=== PATIENT | male | born 1975 | race Caucasian/White ===

== ENCOUNTER → 2024-07-09 16:12 | Outpatient (REF) | payer OTHER, SELFPAY ==
--- NOTE | 2024-07-09 17:15 | CA_ITS ---
Transthoracic Echocardiogram Patient (Last, First, Middle): Jack Lutz, Gender: Male Date of : 1975 Age: 48 Procedure Date: 07/09/2024 Procedure Type: Transthoracic Echocardiogram Location: OP Height: 187.96 cm Weight: 102.06 kg BSA: 2.28 m2 Heart Rate: bpm BP: 128 / 80 mmHg Senior Catering Sales Manager: Referring MD: Leon Narayan MD Assistant Laboratory Director: Leon Narayna MD Symptoms: I48.91 Unspecified Atrial Fibrillation Study Quality: Fair ECG Rhythm: Sinus Conclusions: - Normal study Findings Left Ventricle Normal left ventricular size, thickness, and systolic function. The visually estimated ejection fraction is between 60-65%. Diastolic function is normal for age. Right Ventricle Normal right ventricular cavity size and systolic function. Atria Both atria are normal in size. There is no evidence of interatrial shunt. Aortic Valve Normal aortic valve structure and function. There is no aortic valve stenosis. There is no aortic valve regurgitation. Mitral Valve Normal mitral valve structure and function. There is no mitral valve regurgitation. There is no mitral valve stenosis. Tricuspid Valve Normal tricuspid valve structure. There is trace tricuspid valve regurgitation. The right ventricular systolic pressure is normal. The right ventricular systolic pressure is 24 mmHg. Normal right atrial pressure. There is no evidence of pulmonary hypertension. Great Vessels All visible segments of the aorta are normal in size. The pulmonary artery was not well visualized. Venous The inferior vena cava is normal in size and collapses greater than 50% with inspiration. Pericardium/Pleural There is no evidence of pericardial effusion. Prior Study Comparison No prior study available for comparison. Measurements 2D Linear Measurements IVSd: 1.16 0.6-0.9/0.6-1.0 cm LVIDd: 5.41 3.9-5.3/4.2-5.9 cm LVIDd Index: 2.37 2.4-3.2/2.2-3.1 cm/m2 LVIDs: 3.02 2.0-3.6 cm LVPWd: 1.16 0.7-1.1 cm Ao Root: 3.30 2.1-3.5 cm LA Diam: 4.40 2.7-3.8/3.0-4.0 cm LAIDs Index: 1.93 1.5-2.3 cm/m2 LV Mass: 315.69 67-162/88-224 g LV Mass Index: 138.46 43-95/49-115 g/m2 LVOT Diam: 2.20 3.0+(-)1.3 cm 2D Systolic Function EF 4C: 68.80 >55% EF 2C: 64.70 >55% EF BiP: 65.20 >55% Mitral Valve MV Pk E: 0.61 MV PK A: 0.60 MV Decel Time: 168.00 E/A: 1.00 E'Lateral: 17.30 E'Medial: 7.51 E/E' Med: 8.20 E/E' Lat: 3.50 PHT: 49.00 MVA PHT: 4.49 Decel Erie: 3.65 LVOT LVOT Pk Xavier: 1.16 LVOT Mn Xavier: 0.65 LVOT VTI: 0.24 LVOT Pk Grad: 5.00 LVOT Mn Grad: 2.00 LVOT Diam: 2.20 LVOT Area: 3.80 Diastolic Function MV Pk E: 0.61 MV Pk A: 0.60 E/A: 1.00 E'Medial: 7.51 E/E' Med: 8.20 E' Laterial: 17.30 E/E' Lat: 3.50 Right Ventricle TAPSE (mm): 34.00 TVS' Xavier: 15.00 Tricuspid Valve TR Pk Xavier: 2.28 TR Pk Grad: 21.00 RA Press: 3.00 RVSP: 24.00 Great Vessels Aorta Ao Root-2D: 3.30 2.0-3.7 cm Ao Asc: 3.30 2.1-3.4 cm Pulmonary Valve PV Pk Xavier: 1.30 Peak PV Grad: 7.00 Updated in Other Vendor System with Status of Final Leon Narayan MD electronically signed on 07/10/2024 11:10:06 AM with status of Final
--- OUTSIDE RECORDS SUMMARY | 2024-07-09 20:05 | XMS_ITS | Clinical Summary ---
Author Organization [facility] Address [address] [id number] Care Team Providers Care Senior Abap Developer Name Role Phone Cameron Smith Unavailable Cameron Smith Primary Care Provider [phone] Allergies Active Allergy Reactions Criticality Noted Date Comments Pavel Inhibitors Rash Low 07/07/2024 Medications amLODIPine (NORVASC) 10 mg tablet Take 10 mg by mouth in the morning. Active losartan (COZAAR) 50 mg tablet Take 50 mg by mouth in the morning. Active propranoloL (INDERAL) 20 mg tablet Take 20 mg by mouth in the morning and 20 mg at noon and 20 mg before bedtime. Active apixaban (ELIQUIS) 5 mg Take 1 tablet (5 mg total) by mouth in the morning and 1 tablet (5 mg total) before bedtime. 60 tablet 07/07/2024 Active Active Problems No known active problems Encounters Date Type Department Care Team Description 07/07/2024 12:48 AM EST - 07/07/2024 4:58 AM EST Emergency [facility] Department of Emergency Services [address] [place] [address] Kenji Trivedi MD Atrial fibrillation, unspecified type (HCC) (Primary Dx) Discharge Disposition: Home or Self Care from Last 3 Months Social History Tobacco Use Types Packs/Day Years Used Date Smoking Tobacco: Never Smokeless Tobacco: Never Tobacco Cessation:Counseling Given: Not Answered Sex and Gender Information Value Date Recorded Sex Assigned at Not on file Legal Sex Male 12:42 AM EST Gender Identity Not on file Sexual Orientation Not on file COVID-19 Exposure Response Date Recorded In the last 10 days, have yo u been in contact with someone who was confirmed or suspected to have Coronavirus/COVID-19? No / Unsure 07/07/2024 12:43 AM EST Last Filed Vital Signs Vital Sign Reading Time Taken Comments Blood Pressure 129/80 07/07/2024 3:23 AM EST Pulse 73 07/07/2024 3:30 AM EST Temperature 35.9 ??C (96.6 ??F) 07/07/2024 12:[address] Respiratory Rate 24 07/07/2024 3:30 AM EST Oxygen Saturation 97% 07/07/2024 3:30 AM EST Inhaled Oxygen Concentration - - Weight 102 kg (225 lb) 07/07/2024 12:44 AM EST Height 188 cm (6' 2 ) 07/07/2024 12:44 AM EST Body Mass Index 28.89 07/07/2024 12:44 AM EST Plan of Treatment Health Maintenance Due Date Last Done Comments CT Colonography 1975 FIT-DNA (Cologuard) 1975 FIT 1975 FOBT 1975 Flex Sigmoidoscopy - 5y 1975 HIV Screening 1975 Hepatitis C Screening 1992 Hepatitis B Vaccines (1 of 3 - 19+ 3-dose series) 1993 DTaP,Tdap,and Td Vaccines (1 - Tdap) 09/12/2022 09/11/2022 COVID-19 Vaccine ( - season) 2024 12/31/2020, 05/18/2020, 04/27/2020 Zoster Vaccines (1 of 2) 2024 Colonoscopy 05/22/2033 05/22/2023 Colorectal Cancer Screening 05/22/2033 Influenza Vaccine Completed 03/04/2024, , 03/24/2023, Additional history exists HPV Vaccines Aged Out No longer eligi ble based on patient's age to complete this topic Hepatitis A Vaccines Aged Out No long er eligible based on patient's age to complete this topic MMR Vaccines Aged Out No longer eligi ble based on patient's age to complete this topic Meningococcal Vaccine Aged Out No lavelle clifford eligible based on patient's age to complete this topic Pneumococcal Vaccine: Pediatrics (0 to 5 Years) and At-Risk Patients (6 to 64 Years) Aged Out No longer eligible based on patient's age to complete this topic Procedures Procedure Name Priority Date/Time Associated Diagnosis Comments HIGH SENSITIVITY TROPONIN I STAT 07/07/2024 3:21 AM EST TSH Add-On 07/07/2024 1:18 AM EST COMPLETE BLOOD COUNT WITH AUTO DIFFERENTIAL STAT 07/07/2024 1:18 AM EST HIGH SENSITIVITY TROPONIN I STAT 07/07/2024 1:18 AM EST MAGNESIUM STAT 07/07/2024 1:18 AM EST BASIC METABOLIC PANEL STAT 07/07/2024 1:18 AM EST COMPLETE BLOOD COUNT AND DIFFERENTIAL STAT 07/07/2024 1:18 AM EST ECG 12-LEAD STAT 07/07/2024 12:53 AM EST from Last 3 Months Results * High Sensitivity Troponin I (07/07/2024 3:21 AM EST) Only the most recent of2 resultswithin the time period is included. high sensitivity Troponin I <3 <=35 ng/L 07/07/2024 3:56 AM EST [facility] Comment:Refer to the high se nsitivity TnI algorithm for further workup Blood Venous blood specimen / Unknown Venipuncture / Unknown 07/07/2024 3:21 AM EST 07/07/2024 3:26 AM EST us Kenji Trivedi MD LAB BLOOD ORDERABLES Natali tapia Result [facility] [address] [place] [address], [place] [phone] * (ABNORMAL) Complete Blood Count with Auto Differential (07/07/2024 1:18 AM [facility]) [facility] White Cell Count 8.9 3.8 - 10.6 10*3/uL 07/07/2024 1:26 AM [facility] Red Cell Count 5.39 4.40 - 5.90 10*6/??L 07/07/2024 1:26 AM [facility] Hemoglobin 15.2 13.0 - 18.0 g/dL 07/07/2024 1:26 AM [facility] Hematocrit 45.3 40.0 - 52.0 % 07/07/2024 1:26 AM [facility] MCV 84.0 80.0 - 100.0 fL 07/07/2024 1:26 AM [facility] MCH 28.2 26.0 - 34.0 pg 07/07/2024 1:26 AM [facility] MCHC 33.6 32.0 - 36.0 g/dL 07/07/2024 1:26 AM [facility] RBC Distribution Width 13.2 11.6 - 14.8 % 07/07/2024 1:26 AM [facility] Platelet count 247 150 - 440 10*3/uL 07/07/2024 1:26 AM [facility] Neutrophils 42.7 40.0 - 70.0 % 07/07/2024 1:26 AM [facility] Immature Granulocytes 0.1 0.0 - 0.6 % 07/07/2024 1:26 AM [facility] Lymphocytes 42.1 20.0 - 50.0 % 07/07/2024 1:26 AM [facility] Monocytes 12.0 4.0 - 12.0 % 07/07/2024 1:26 AM [facility] Eosinophils 2.3 0.0 - 6.0 % 07/07/2024 1:26 AM EST [facility] Basophils 0.8 0.0 - 2.0 % 07/07/2024 1:26 AM EST [facility] Absolute Neutrophil Ct. 3.8 1.4 - 6.3 10*3/uL 07/07/2024 1:26 AM EST [facility] Absolute Lymphocyte Ct. 3.7 0.7 - 4.5 10*3/uL 07/07/2024 1:26 AM EST [facility] Absolute Monocyte Ct. 1.1(H) 0.2 - 0.8 10*3/uL 07/07/2024 1:26 AM EST [facility] Absolute Eosinophil Ct. 0.2 0.0 - 0.3 10*3/uL 07/07/2024 1:26 AM EST [facility] Absolute Basophil Ct. 0.1 0.0 - 0.2 10*3/uL 07/07/2024 1:26 AM EST [facility] nRBC 0.0 0.0 - 0.0 % 07/07/2024 1:26 AM EST [facility] Blood Venous blood specimen / Unknown Venipuncture / Unknown 07/07/2024 1:18 AM EST 07/07/2024 1:24 AM EST Kenji Trivedi MD LAB BLOOD ORDERABLES Natali tapia Result [facility] [address] [place] [address], * TSH (07/07/2024 1:18 AM EST) [facility] TSH 2.27 0.35 - 4.94 uIU/mL 07/07/2024 2:27 AM EST [facility] Blood Venous blood specimen / Unknown Venipuncture / Unknown 07/07/2024 1:18 AM EST 07/07/2024 1:23 AM EST us Kenji Trivedi MD LAB BLOOD ORDERABLES NO S TAT Final Result [facility] [address] [place] [address], [place] [phone] * Magnesium (07/07/2024 1:18 AM EST) Magnesium 1.9 1.8 - 3.0 mg/dL 07/07/2024 1:56 AM EST [facility] Blood Venous blood specimen / Unknown Venipuncture / Unknown 07/07/2024 1:18 AM EST 07/07/2024 1:23 AM EST us Kenji Trivedi MD LAB BLOOD ORDERABLES Natali l Result Performing Organization Address City/[facility]/ZIP Co de Phone Number [facility] [address] [place] [address], [place] [phone] * (ABNORMAL) Basic metabolic panel (07/07/2024 1:18 AM EST) Sodium 140 137 - 144 mmol/L 07/07/2024 1:56 AM EST [facility] Potassium 3.9 3.6 - 5.1 mmol/L 07/07/2024 1:56 AM EST [facility] Chloride 106 100 - 111 mmol/L 07/07/2024 1:56 AM EST [facility] CO2 21(L) 23 - 32 mmol/L 07/07/2024 1:56 AM EST [facility] Anion gap 13(H) 3 - 11 mmol/L 07/07/2024 1:56 AM EST [facility] BUN 16 8 - 24 mg/dL 07/07/2024 1:56 AM EST [facility] Creatinine 0.80 0.60 - 1.20 mg/dL 07/07/2024 1:56 AM [facility] Glucose 106 70 - 200 mg/dL 07/07/2024 1:56 AM [facility] Comment: Normal fasting glucose ?75-99 mg/dL Impaired fasting glucose ?100 - 125 mg/dL Fasting glucose ? >125 mg/dL - provisional diagnosis of diabetes mellitus Random glucose ?>= 200 mg/dl is considered diagnostic for diabetes ADA Guidelines: Classification and Diagnosis of Diabetes: Standards of Medical Care in Diabetes - 2020, Diabetes Care 2020; S15-S33. Calcium 9.9 8.4 - 10.2 mg/dL 07/07/2024 1:56 AM [facility] eGFR 108 >60 mL/min/1. 73m*2 07/07/2024 1:56 [facility] Comment: Calculation based on the Chronic Kidney Disease Epidemiology Collaboration (CKD-EPI) equation refit without adjustment for race. ? Chronic Kidney Disease less than 60 ml/min/1.73 m2 ? Kidney Failure less than 15 ml/min/1.73 m2 ? Age (Years) ? Average GFR ? 20 - 29 ? 116 ml/min/1.73 m2 ? 30 - 39 ? 107 ml/min/1.73 m2 ? 40 - 49 ?99 ml/min/1.73 m2 ? 50 - 59 ?93 ml/min/1.73 m2 ? 60 - 69 ?85 ml/min/1.73 m2 ? 70 + ? 75 ml/min/1.73 m2 ? Pursuant to [place] Public Act 06-120(1)(b)(1). ?? The 2020 CKD-EPI calculation used to estimate eGFR has only been validated for patients 18 years or older. Blood Venous blood specimen / Unknown Venipuncture / Unknown 07/07/2024 1:18 AM EST 07/07/2024 1:23 AM EST us Kenji Trivedi MD LAB BLOOD ORDERABLES Natali tapia Result [facility] [address] [place] [address], * ECG 12 lead (07/07/2024 12:53 AM EST) 07/07/2024 12:5 3 AM EST 07/07/2024 3:43 PM EST Narrative [facility] ([facility]) - 07/07/2024 3:43 PM EST Ventricular Rate: 80 BPM QRS Duration: 106 ms Q-T Interval: 372 ms QTC Calculation(Bazett): 429 ms R Antler: -37 degrees T Antler: 18 degrees Diagnosis: Atrial fibrillation Left axis deviation Pulmonary disease pattern Incomplete right bundle branch block Abnormal ECG No previous ECGs available Confirmed by Josias Gómez ([id number]) on 07/07/2024 7:59:12 AM Also confirmed by Josias Gómez ([id number]), society editor Patricia Barton ([id number]) on 07/07/2024 3:43:40 PM Procedure Note Josias Gómez MD - 07/07/2024 Ventricular Rate: 80 BPM QRS Duration: 106 ms Q-T Interval: 372 ms QTC Calculation(Bazett): 429 ms R Antler: -37 degrees T Antler: 18 degrees Diagnosis: Atrial fibrillation Left axis deviation Pulmonary disease pattern Incomplete right bundle branch block Abnormal ECG No previous ECGs available Confirmed by Josias Gómez ([id number]) on 07/07/2024 7:59:12 AM Also confirmed by Josias Gómez ([id number]), society editor Patricia Barton ([id number]) on 07/07/2024 3:43:40 PM us Kenji Trivedi MD ECG ORDERABLES Final Res ult [facility] ([place]) [place] [address], from Last 3 Months Insurance O NON PAR Care Teams Senior Abap Developer Relationship Specialty Start Date End Date Cameron Smith [address] [address] PCP - Insurance Payer PCP 07/07/24 Cameron Smith [address] [place] [address] PCP - General Internal Medicine 07/07/24
--- OUTSIDE RECORDS SUMMARY | 2024-07-09 20:05 | XMS_ITS | Clinical Summary ---
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 4 Active dexAMETHasone (DECADRON) 2 mg tabletIndications: Lumbar back pain with radiculopathy affecting left lower extremity Take 1 tablet (2 mg total) by mouth every 8 (eight) hours for 4 days. 12 each 1 5 Active Active Problems Problem Noted Date Diagnosed Date Lumbar back pain with radicu lopathy affecting left lower extremity 05/10/2024 Assessment & Plan (05/10/2024 10:26 AM EST): I reviewed the imaging findings in detail with Dr. Lutz and we agreed that while there are minor degenerative changes slightly eccentric to the left particularly at L5-S1, his radicular symptoms fit more with an L4 pattern but was unrelieved by a left L4 SEGUNDO. At this point, we would not consider surgery and discussed other medical options including short course of Decadron, a trial of gabapentin, physical therapy and inversion table. We will try 4 days of Decadron to cool down the current symptoms and reserve gabapentin for the future if necessary because of the risk of causing drowsiness and fatigue. I recommended taking Prilosec while on Decadron. He will start a core strengthening program and look into acquiring an inversion table. He is welcome to follow-up at any time if his symptoms change. Encounters Date Type Department Care Team Description 05/10/2024 9:30 AM EST Office Visit Neurosurgery [facility] [address] [facility] [address] [place] [address] Laura Canales MD Lumbar back pain with radiculopathy affecting left lower extremity (Primary Dx) 05/07/2024 10:45 AM EST - 05/07/2024 11:59 PM EST Hospital Encounter [facility] MRI [address] [place] [address] Low back pain radiating to both legs Discharge Disposition: Home or Self Care from Last 3 Months Immunizations Name Administration Dates Next Due Influenza Quadravalent, MDCK , 0.5ml, preservative free (Flucelvax) 6mo and older 03/24/2023 Influenza Quadrivalent, 0.5m l, preservative free (Fluarix; FluLaval; Fluzone) ages 6mo and older (Afluria) 3yo and older 03/21/2019,02/24/2016 Influenza trivalent, 0.5mL, preservative free (Fluarix; FluLaval; Fluzone) ages 6mo and older (Afluria) 3 years and older 03/04/2024 Influenza trivalent, with pr eservative (Fluzone; Afluria) 6mo and older 03/08/2021 Influenza, Unspecified 03/14/2022,04/02/2021,06/2019 Moderna SARS-CoV-2 COVID-19, mRNA, LNP-S, preservative free 12/31/2020 Td Tetanus diptheria, preser vative free (Tenivac) 7yo and older 09/11/2022 Surgical History Surgery Date Site/Laterality Comments OTHER SURGICAL HISTORY Pilonidal cyst removal Medical History Medical History Date Comments Hypertension Social History Tobacco Use Types Packs/Day Years Used Date Smoking Tobacco: Never Smokeless Tobacco: Never Sex and Gender Information Value Date Recorded Sex Assigned at Not on file Legal Sex Male 8:55 PM EST Gender Identity Not on file Sexual Orientation Not on file Obstetrics History Last Filed Vital Signs Vital Sign Reading Time Taken Comments Blood Pressure - - Pulse - - Temperature - - Respiratory Rate - - Oxygen Saturation - - Inhaled Oxygen Concentration - - Weight 107 kg (234 lb 14.4 oz) 05/10/2024 9:40 A M EST Height 189.5 cm (6' 2.6 ) 05/10/2024 9:40 AM EST Body Mass Index 29.68 05/10/2024 9:40 AM EST Plan of Treatment Health Maintenance Due Date Last Done Comments Hepatitis B Vaccines (1 of 3 - 19+ 3-dose series) 1993 COVID-19 Vaccine (2023- season) 2024 12/31/2020, 05/18/2020, 04/27/2020 Cholesterol Screening (Lipid Panel) 04/19/2024 Colorectal Cancer Screening: Colonoscopy 04/19/2024 Depression Screening 04/19/2024 HIV Screening 04/19/2024 Hepatitis C Screening 04/19/2024 Social Influencers of Health Screening 04/19/2024 DTaP,Tdap,and Td Vaccines (2 - Td or Tdap) 09/11/2032 09/11/2022 Influenza Vaccine Completed 03/04/2024, , 03/14/2022, Additional history exists HIB Vaccines Aged Out No longer eligi ble based on patient's age to complete this topic HPV Vaccines Aged Out No longer eligi ble based on patient's age to complete this topic Hepatitis A Vaccines Aged Out No long er eligible based on patient's age to complete this topic IPV Vaccines Aged Out No longer eligi ble based on patient's age to complete this topic MMR Vaccines Aged Out No longer eligi ble based on patient's age to complete this topic Meningococcal ACWY Vaccine Aged Out N o longer eligible based on patient's age to complete this topic Meningococcal B Vacine Aged Out No lo nger eligible based on patient's age to complete this topic Pneumococcal Vaccine: Pediatrics (0 to 5 Years) and At-Risk Patients (6 to 64 Years) Aged Out No longer eligible based on patient's age to complete this topic RSV Immunization Patients Under 20 months Aged Out No longer eligible based on patient's age to complete this topic Varicella Vaccines Aged Out No longer eligible based on patient's age to complete this topic Procedures Procedure Name Priority Date/Time Associated Diagnosis Comments MR LUMBAR SPINE WO CONTRAST Routine 05/07/2024 1:24 PM EST Low back pain radiating to both legs from Last 3 Months Results * MR Lumbar Spine wo Contrast (05/07/2024 1:24 PM EST) Anatomical Region Laterality Modality L-spine, Spine Magnetic Resonan ce 05/07/2024 1:10 PM EST Impressions 05/07/2024 1:31 PM EST Small central protrusion at L4-5 resulting in effacement of the subarticular zones bilaterally without spinal canal stenosis. Small left paracentral protrusion at L5-S1 resulting in effacement of the left subarticular zone without spinal canal stenosis. No high-grade foraminal or spinal canal stenosis in the lumbar spine. -------- FINAL REPORT -------- Dictated By: PERFECTO CHERRY Dictated Date: 05/07/2024 13:10 ET Assigned Physician: PERFECTO CHERRY Reviewed and Electronically Signed By: PERFECTO CHERRY Signed Date: 05/07/2024 13:31 ET Workstation ID: [id number] Transcribed By: Self Edit Transcribed Date: 05/07/2024 13:10 ET Narrative 05/07/2024 1:31 PM EST PROCEDURE: Lumbar spine MRI INDICATION: Low back pain, left thigh radiculopathy TECHNIQUE: Multiplanar, multisequence MRI of the Lumbar spine Without contrast. COMPARISON: ??No priors available. FINDINGS: Lumbar lordosis is preserved. No fracture or suspicious marrow replacing lesion. Lower lumbar predominant degenerative loss of normal disc height and signal with associated degenerative discogenic endplate change. ??Lumbar facet joints are within normal limits. Conus medullaris is normal and terminates at L1. ??No epidural collection or mass is seen within the spinal canal. Small right renal cysts. ??Visualized intra-abdominal and pelvic structures are otherwise unremarkable. Findings by level: T12-L1: No focal disc protrusion, facet arthropathy, foraminal stenosis, or spinal canal stenosis. L1-2: No focal disc protrusion, facet arthropathy, foraminal stenosis, or spinal canal stenosis. L2-3: No focal disc protrusion, facet arthropathy, foraminal stenosis, or spinal canal stenosis. L3-4: Small diffuse disc bulge resulting in mild foraminal stenosis bilaterally. ??No spinal canal stenosis. L4-5: Small diffuse disc bulge with superimposed small central protrusion. ??Effacement of the subarticular zones bilaterally without spinal canal stenosis. L5-S1: Diffuse disc bulge with small left paracentral protrusion resulting in effacement of the left subarticular zone. ??Mild foraminal stenosis bilaterally. ??No spinal canal stenosis. Procedure Note Perfecto Cherry MD - 05/07/2024 PROCEDURE: Lumbar spine MRI INDICATION: Low back pain, left thigh radiculopathy TECHNIQUE: Multiplanar, multisequence MRI of the Lumbar spine Withoutcontrast. COMPARISON: No priors available. FINDINGS: Lumbar lordosis is preserved. No fracture or suspicious marrow replacing lesion. Lower lumbar predominant degenerative loss of normal disc height andsignal with associated degenerative discogenic endplate change. Lumbarfacet joints are within normal limits. Conus medullaris is normal and terminates at L1. No epidural collectionor mass is seen within the spinal canal. Small right renal cysts. Visualized intra-abdominal and pelvic structuresare otherwise unremarkable. Findings by level: T12-L1: No focal disc protrusion, facet arthropathy, foraminal stenosis,or spinal canal stenosis. L1-2: No focal disc protrusion, facet arthropathy, foraminal stenosis, orspinal canal stenosis. L2-3: No focal disc protrusion, facet arthropathy, foraminal stenosis, orspinal canal stenosis. L3-4: Small diffuse disc bulge resulting in mild foraminal stenosisbilaterally. No spinal canal stenosis. L4-5: Small diffuse disc bulge with superimposed small central protrusion.Effacement of the subarticular zones bilaterally without spinal canalstenosis. L5-S1: Diffuse disc bulge with small left paracentral protrusion resultingin effacement of the left subarticular zone. Mild foraminal stenosisbilaterally. No spinal canal stenosis. IMPRESSION: Small central protrusion at L4-5 resulting in effacement of thesubarticular zones bilaterally without spinal canal stenosis. Small left paracentral protrusion at L5-S1 resulting in effacement of theleft subarticular zone without spinal canal stenosis. No high-grade foraminal or spinal canal stenosis in the lumbar spine. -------- FINAL REPORT -------- Dictated By: PERFECTO CHERRY Dictated Date: 05/07/2024 13:10 ET Assigned Physician: PERFECTO CHERRY Reviewed and Electronically Signed By: PERFECTO CHERRY Signed Date: 05/07/2024 13:31 ET Workstation ID: [id number] Transcribed By: Self Edit Transcribed Date: 05/07/2024 13:10 ET us Laura Canales MD IMG MRI PROCEDURES Final Result from Last 3 Months Insurance Care Teams Mine Safety Engineer Relationship Specialty Start Date End Date Cameron Smith MD [address] [place] [address] PCP - General Internal Medicine 05/10/24
--- OUTSIDE RECORDS SUMMARY | 2024-07-09 20:05 | XMS_ITS | Encounter Summary ---
Author Organization [facility] Address [address] [place] [address] Care Team Providers Care Bistro Attendant Name Role Phone Cameron Smith Unavailable Cameron Smith Primary Care Provider [phone] Reason for Referral * Consultation (Routine) - Pending Review Specialty Diagnoses / Procedures Referred By Olegario t Referred To Contact Cardiology Kenji Trivedi MD [address] [place], [place] [address] [address] Phone: tel: fax: [facility] Department of Cardiology [address] [place] [address] Phone: tel: fax: Referral ID Status Reason Start Date Expiration Date Visits Requested Visits Authorized [id number] Pending Review Specialty Services Required 07/07/2024 07/07/2025 1 1 Reason for Visit * Reason Comments Chest Pain Encounter Details Date Type Department Care Team (Late st Contact Info) Description 07/07/2024 12:48 AM EST - 07/07/2024 4:58 AM EST Emergency [facility] Department of Emergency Services [address] [place] [address] Kenji Trivedi MD [address] [place], [place] [address] [address] Atrial fibrillation, unspecified type (HCC) (Primary Dx) Discharge Disposition: Home or Self Care Social History Tobacco Use Types Packs/Day Years [...] No / Unsure 07/07/2024 12:43 AM EST documented as of this encounter Last Filed Vital Signs Vital Sign Reading [...] Mass Index 28.89 07/07/2024 12:44 AM EST documented in this encounter Discharge Instructions * Discharge Instructions* Kenji Trivedi MD - 07/07/2024 4:46 AM EST As we discussed, you will take Eliquis twice a day and will follow-up with cardiology either at [facility] or through your own resources soon as possible. He will continue your medication for bloodpressure. If your symptoms change, worsen or you have any symptoms or have any other problems or concerns, you return to emergency department. * Attachments The following attachments cannot be sent through Care Everywhere. * Atrial Fibrillation Mmkx-os-Gway (Latvian) documented in this encounter Medications at Time of Discharge amLODIPine (NORVASC) 10 mg tablet Take 10 mg by mouth in the morning. apixaban (ELIQUIS) 5 mg Take 1 tablet (5 mg total) by mouth in the morning and 1 tablet (5 mg total) before bedtime. 60 tablet 07/07/2024 08/06/2024 losartan (COZAAR) 50 mg tablet Take 50 mg by mouth in the morning. propranoloL (INDERAL) 20 mg tablet Take 20 mg by mouth in the morning and 20 mg at noon and 20 mg before bedtime. documented as of this encounter ED Notes * Kenji Trivedi MD - 07/07/2024 1:32 AM EST HPI Chief Complaint Patient presents with Chest Pain 48-year-old male with history of ADHD, and hypertension who presents here complaining of irregular heart rate. Patient states that he awoke around midnight which is not unusual for him and felt slight chest discomfort and sensation of persistent palpitations. He checked his pulse and felt it was reg ular. He checked his watch and got a reading of atrial fibrillation. Patient reports no prior history of atrial fibrillation but he had occasional brief lasting palpitations in the past. Patient states that he had a cardiac workup, out of abundance of caution, a year or so ago with negative stress test and negative brief Holter monitoring. 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 On top of his antihypertensives, he takes propranolol that helps with minor tremors he occasionally has. He also has recently been taking a stimulant for his ADHD to help him concentrate on paperwork. Patient reports compliance with medications overall. No use of drugs or excessive use of alcohol. Patient's father had coronary artery disease and atrial fibrillation later on in life. Patient also had at some point within past year cardiac CT scan of his calcium score reported as 0. Patient took aspirin 325 mg prior to arrival. He is not in anypain right now but has shows some degree of discomfort when he feels palpitations. He denies any peripheral edema. He denies any recent illnesses. He denies any other complaints. Patient History Past Medical History: Diagnosis Date ADHD (attention deficit hyperactivity disorder) Hypertension History reviewed. No pertinent surgical history. History reviewed. No pertinent family history. Social History Tobacco Use Smoking status: Never Smokeless tobacco: Never Review of Systems Review of Systems Constitutional: Negative. Respiratory: Positive for chest tightness. Negative for cough and shortness of breath. Cardiovascular: Positive for palpitations. Negative for chest pain and leg swelling. Physical Exam ED Triage Vitals Temperature Pulse Resp Blood Pressure Pulse Oximetry 07/07/244307/07/244307/07/244307/07/244307/07/2443 35.9 ??C (96.6 ??F) 79 18 (!) 161/93 98 % Temp Source Pulse Source Patient Position BP Location Oxygen Therapy 07/07/244307/07/24 0100 07/07/244307/07/244307/07/2443 Tympanic Monitor Sitting Right upper arm None (Room air) Physical Exam Vitals and nursing note reviewed. Constitutional: General: He is not in acute distress. Appearance: He is well-developed. HENT: Head: Normocephalic and atraumatic. Eyes: Extraocular Movements: Extraocular movements intact. Conjunctiva/sclera: Conjunctivae normal. Pupils: Pupils are equal, round, and reactive to light. Cardiovascular: Rate and Rhythm: Normal rate and regular rhythm. Pulses: Radial pulses are 2+ on the right side and 2+ on the left side. Heart sounds: Normal heart sounds. No murmur heard. Pulmonary: Effort: Pulmonary effort is normal. No respiratory distress. Breath sounds: Normal breath sounds. Abdominal: Palpations: Abdomen is soft. Tenderness: There is no abdominal tenderness. Musculoskeletal: General: Normal range of motion. Cervical back: Normal range of motion and neck supple. Right lower leg: No edema. Left lower leg: No edema. Skin: General: Skin is warm and dry. Capillary Refill: Capillary refill takes less than 2 seconds. Neurological: General: No focal deficit present. Mental Status: He is alert and oriented to person, place, and time. ED Course & MDM Clinical Impressions as of 07/07/24 0444 Atrial fibrillation, unspecified type (HCC) Medical Decision Making 48-year-old male with history of ADHD, and hypertension who presents here complaining of irregular heart rate. Patient states that he awoke around midnight which is not unusual for him and felt slight chest discomfort and sensation of persistent palpitations. He checked his pulse and felt it was reg ular. He checked his watch and got a reading of atrial fibrillation. Patient reports no prior history of atrial fibrillation but he had occasional brief lasting palpitations in the past. Patient states that he had a cardiac workup, out of abundance of caution, a year or so ago with negative stress test and negative brief Holter monitoring. 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 On top of his antihypertensives, he takes propranolol that helps with minor tremors he occasionally has. He also has recently been taking a stimulant for his ADHD to help him concentrate on paperwork. Patient reports compliance with medications overall. No use of drugs or excessive use of alcohol. Patient's father had coronary artery disease and atrial fibrillation later on in life. Patient also had at some point within past year cardiac CT scan of his calcium score reported as 0. Patient took aspirin 325 mg prior to arrival. He is not in anypain right now but has shows some degree of discomfort when he feels palpitations. He denies any peripheral edema. He denies any recent illnesses. He denies any other complaints. On examination, patient appears to be in no acute distress. His vital signs are normal. He is clearto auscultation bilaterally. His heart sounds are normal but rhythm is regular, rate is normal. He has got no peripheral edema. 2+ pulses in all 4 extremities. He is alert and oriented x 3 Differential Diagnosis: Acute onset atrial fibrillation, low likelihood of ischemic etiologies. This is most likely related to underlying hypertension, possibly stress levels and the use of ADHD medications. Doubt significant electrolyte or thyroid abnormalities. Patient is in rate controlled atrial fibrillation. He has clear onset within the last few hours. Hehad pretty good cardiac workup within the past 18 months that was unremarkable. He is really not having chest pain but just a discomfort from the irregularity of the heartbeat. No ischemic changes onEKG. Labs including serial high-sensitivity troponins were normal. TSH was normal. Patient is CHA2DS 2-VASc score of 1. He already had taken aspirin prior to arrival. In-depth discussion was held between me, patient and his . Given patient's history and presentation within short period of time of acute onset of atrial fibrillation with no prior history of the same, it will not be unreasonable to give him a dose of DOAC and cardiovert him a few hours later electrically. Patient certainly was very curious about this option but ultimately felt very anxious about the fact that there is still some infinitely small but nonzero risk of this atrial fibrillation being paroxysmal and without ISAURA having some sort of a small risk of stroke. Even though given patient's risk score of 1 he could go home on aspirin, he felt strongly that he would prefer to be started on the anticoagulant until he can get in touch with the cardiology. Even though he lives in [place] nearby [facility], he works in [employer] and therefore wants to contact his college that whom he is very f amiliar with. At the end, we made a decision to start him on Eliquis with the first dose given in the emergency department. He was given prescription for next 30 days. He was given referral to [facility] cardiology as a backup option. He plans to speak to his cardiology colleagues within the next48 hours and get their advice on how to proceed with the atrial fibrillation workup, possible cardioversion whether chemical or electric, etc. All patient's questions were answered to the best of my abilities and shared decision-making was employed above. I discussed the pertinent elements of the patient's care with patient's I personally reviewed the patients EKG. My interpretation is: Rate controlled atrial fibrillation without ischemic changes I personally viewed the patient's radiologic imaging. My interpretation is: N/A I reviewed past pertinent medical documents. They are summarized as follows: N/A The following pertinent information was obtained from an outside source: N/A The following conditions were considered as part but not limited to the differential diagnosis: As above Consideration was given to whether patient would require admission or observation post ED visit: N/A Consideration for the following diagnostic tests was given: As above Consideration was given for prescribing the following medications: Eliquis The following social determinants of health impacted this patient's care: N/A Problems Addressed: Atrial fibrillation, unspecified type (HCC): complicated acute illness or injury Amount and/or Complexity of Data Reviewed Labs: ordered. ECG/medicine tests: ordered and independent interpretation performed. Risk Prescription drug management. Kenji Trivedi MD 07/07/24 1413 * Celina Banuelos RN - 07/07/2024 1:00 AM EST Pt awoke around midnight feeling off , then felt that he had some palpitations, confirmed by applewatch. 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 A-fib on EKG and monitor, rate controlled at this time. Celina Banuelos RN 07/07/24 0113 * Britta Rivero RN - 07/07/2024 12:57 AM EST Pt arrives to ED c/o chest discomfort, reports I feel like I am in A-fib. PT denies hx of a-fib. documented in this encounter Miscellaneous Notes * ED Procedure Note - Kenji Trivedi MD - 07/07/2024 1:49 AM EST Associated Order(s): ECG 12 lead Procedure ECG 12 lead Performed by: Kenji Trivedi MD Authorized by: Kenji Trivedi MD ECG interpreted by ED Physician in the absence of a snag grinder: yes Previous ECG: Previous ECG: Unavailable Interpretation: Interpretation: abnormal Comments: Atrial fibrillation, rate of 80, left axis deviation noted, no STEMI Kenji Trivedi MD 07/07/24 0150 documented in this encounter Plan of Treatment Scheduled Referrals Name Type Priority Associated Diagnoses Order Schedule Ambulatory referral to Cardiology Outpatient Referral Routine Ordered: 07/07/2024 documented as of this encounter Procedures Procedure Name Priority Date/Time Associated Diagnosis Comments HIGH SENSITIVITY TROPONIN I STAT 07/07/2024 3:21 AM EST HIGH SENSITIVITY TROPONIN I STAT 07/07/2024 1:18 AM EST COMPLETE BLOOD COUNT WITH AUTO DIFFERENTIAL STAT 07/07/2024 1:18 AM EST COMPLETE BLOOD COUNT AND DIFFERENTIAL STAT 07/07/2024 1:18 AM EST TSH Add-On 07/07/2024 1:18 AM EST MAGNESIUM STAT 07/07/2024 1:18 AM EST BASIC METABOLIC PANEL STAT 07/07/2024 1:18 AM EST ECG 12-LEAD STAT 07/07/2024 12:53 AM EST documented in this encounter Results * High Sensitivity Troponin I (07/07/2024 3:21 AM EST) Pathologist [facility] high sensitivity Troponin I <3 <=35 ng/L 07/07/2024 3:56 AM EST [facility] Comment:Refer to the high se nsitivity TnI algorithm for further workup Blood Venous blood specimen / Unknown Venipuncture / Unknown 07/07/2024 3:21 AM EST 07/07/2024 3:26 AM EST us Kenji Trivedi MD LAB BLOOD ORDERABLES Natali l Result [facility] [address] [place] [address], * TSH (07/07/2024 1:18 AM EST) Pathologist [facility] TSH 2.27 0.35 - 4.94 uIU/mL 07/07/2024 2:27 AM EST [facility] Blood Venous blood specimen / Unknown Venipuncture / Unknown 07/07/2024 1:18 AM EST 07/07/2024 1:23 AM EST us Kenji Trivedi MD LAB BLOOD ORDERABLES NO S TAT Final Result [facility] [address] [place] [address], * (ABNORMAL) Complete Blood Count with Auto Differential (07/07/2024 1:18 AM EST) [facility] White Cell Count 8.9 3.8 - 10.6 10*3/uL 07/07/2024 1:26 AM [facility] Red Cell Count 5.39 4.40 - 5.90 10*6/??L 07/07/2024 1:26 AM [facility] Hemoglobin 15.2 13.0 - 18.0 g/dL 07/07/2024 1:26 AM [facility] Hematocrit 45.3 40.0 - 52.0 % 07/07/2024 1:26 AM [facility] MCV 84.0 80.0 - 100.0 fL 07/07/2024 1:26 AM [facility] MCH 28.2 26.0 - 34.0 pg 07/07/2024 1:26 AM [facility] MCHC 33.6 32.0 - 36.0 g/dL 07/07/2024 1:26 AM [facility] RBC Distribution Width 13.2 11.6 - 14.8 % 07/07/2024 1:26 AM [facility] Platelet count 247 150 - 440 10*3/uL 07/07/2024 1:26 AM [facility] Neutrophils 42.7 40.0 - 70.0 % 07/07/2024 1:26 AM [facility] Immature Granulocytes 0.1 0.0 - 0.6 % 07/07/2024 1:26 AM [facility] Lymphocytes 42.1 20.0 - 50.0 % 07/07/2024 1:26 AM [facility] Monocytes 12.0 4.0 - 12.0 % 07/07/2024 1:26 AM [facility] Eosinophils 2.3 0.0 - 6.0 % 07/07/2024 1:26 AM EST [facility] Basophils 0.8 0.0 - 2.0 % 07/07/2024 1:26 AM EST [facility] Absolute Neutrophil Ct. 3.8 1.4 - 6.3 10*3/uL 07/07/2024 1:26 AM EST [facility] Absolute Lymphocyte Ct. 3.7 0.7 - 4.5 10*3/uL 07/07/2024 1:26 AM EST [facility] Absolute Monocyte Ct. 1.1(H) 0.2 - 0.8 10*3/uL 07/07/2024 1:26 AM EST [facility] Absolute Eosinophil Ct. 0.2 0.0 - 0.3 10*3/uL 07/07/2024 1:26 AM EST [facility] Absolute Basophil Ct. 0.1 0.0 - 0.2 10*3/uL 07/07/2024 1:26 AM EST [facility] nRBC 0.0 0.0 - 0.0 % 07/07/2024 1:26 AM EST [facility] Blood Venous blood specimen / Unknown Venipuncture / Unknown 07/07/2024 1:18 AM EST 07/07/2024 1:24 AM EST Kenji Trivedi MD LAB BLOOD ORDERABLES Natali tapia Result [facility] [address] [place] [address], * High Sensitivity Troponin I (07/07/2024 1:18 AM EST) high sensitivity Troponin I <3 <=35 ng/L 07/07/2024 1:56 AM EST [facility] Comment:Refer to the high se nsitivity TnI algorithm for further workup Blood Venous blood specimen / Unknown Venipuncture / Unknown 07/07/2024 1:18 AM EST 07/07/2024 1:23 AM EST us Kenji Trivedi MD LAB BLOOD ORDERABLES Natali l Result [facility] [address] [place] [address], [place] [phone] * Magnesium (07/07/2024 1:18 AM EST) Magnesium 1.9 1.8 - 3.0 mg/dL 07/07/2024 1:56 AM EST [facility] Blood Venous blood specimen / Unknown Venipuncture / Unknown 07/07/2024 1:18 AM EST 07/07/2024 1:23 AM EST us Kenji Trivedi MD LAB BLOOD ORDERABLES Natali l Result Performing Organization Address City/[facility]/ZIP Co de Phone Number [facility] [address] [place] [address], [place] [phone] * (ABNORMAL) Basic metabolic panel (07/07/2024 1:18 AM EST) Sodium 140 137 - 144 mmol/L 07/07/2024 1:56 AM EST [facility] Potassium 3.9 3.6 - 5.1 mmol/L 07/07/2024 1:56 AM EST [facility] Chloride 106 100 - 111 mmol/L 07/07/2024 1:56 AM EST [facility] CO2 21(L) 23 - 32 mmol/L 07/07/2024 1:56 AM EST [facility] Anion gap 13(H) 3 - 11 mmol/L 07/07/2024 1:56 AM EST [facility] BUN 16 8 - 24 mg/dL 07/07/2024 1:56 AM [facility] Creatinine 0.80 0.60 - 1.20 mg/dL 07/07/2024 1:56 AM [facility] Glucose 106 70 - 200 mg/dL 07/07/2024 1:56 AM [facility] Comment: Normal fasting glucose ?75-99 [...] 8.4 - 10.2 mg/dL 07/07/2024 1:56 AM [facility] eGFR 108 >60 mL/min/1. 73m*2 07/07/2024 1:56 AM [facility] Comment: Calculation based on the Chronic [...] ? 75 ml/min/1.73 m2 ? Pursuant to [place] Public Act 06-120(1)(b)(1). ?? The 2020 CKD-EPI calculation used to estimate eGFR has only been validated for patients 18 years or older. Blood Venous blood specimen / Unknown Venipuncture / Unknown 07/07/2024 1:18 AM EST 07/07/2024 1:23 AM EST Kenji Trivedi MD LAB BLOOD ORDERABLES Natali tapia Result Performing Organization Address City/State/[facility] Co de Phone Number [facility] [address] [place] [address], * ECG 12 lead (07/07/2024 12:53 AM EST) 07/07/2024 12:5 3 AM EST 07/07/2024 3:43 PM EST Narrative [facility] - 07/07/2024 3:43 PM EST Ventricular Rate: 80 BPM QRS Duration: 106 ms Q-T Interval: 372 ms QTC Calculation(Bazett): 429 ms R [place]: -37 degrees T [place]: 18 degrees Diagnosis: Atrial fibrillation Left axis deviation Pulmonary disease pattern Incomplete right bundle branch block Abnormal ECG No previous ECGs available Confirmed by Josias Gómez ([id number]) on 07/07/2024 7:59:12 AM Also confirmed by Josias Gómez ([id number]), restaurant expeditor Patricia Barton ([id number]) on 07/07/2024 3:43:40 PM Procedure Note Josias Gómez MD - 07/07/2024 Ventricular Rate: 80 BPM QRS Duration: 106 ms Q-T Interval: 372 ms QTC Calculation(Bazett): 429 ms R [place]: -37 degrees T [place]: 18 degrees Diagnosis: Atrial fibrillation Left axis deviation Pulmonary disease pattern Incomplete right bundle branch block Abnormal ECG No previous ECGs available Confirmed by Josias Gómez ([id number]) on 07/07/2024 7:59:12 AM Also confirmed by Josias Gómez ([id number]), restaurant expeditor Patricia Barton ([id number]) on 07/07/2024 3:43:40 PM us Kenji Trivedi MD ECG ORDERABLES Final Res ult [facility] ([place]USE) [place] [address], documented in this encounter Visit Diagnoses Diagnosis Atrial fibrillation, unspecified type (HCC)- Primary documented in this encounter Administered Medications Inactive Administered Medications - up to 3 most recent administrations Medication Order MAR Action Action Date Dose Rate Site apixaban (ELIQUIS) tablet 5 mg 5 mg, oral, Once, 1 dose, On 07/07/24 at 0358 Given 07/07/2024 4:27 AM EST 5 mg documented in this encounter Active and Recently Administered Medications Times are shown in EST. Scheduled Medication Order 07/05/2024 07/06/2024 07/07/2024 apixaban (ELIQUIS) tablet 5 mg (COMPLETED) 5 mg, oral, Once, 1 dose, On 07/07/24 at 0358 0427 (Given - Provid er: Celina Banuelos RN) documented in this encounter Care Teams Bistro Attendant Relationship Specialty Start Date End Date Sarah Cameron [address] [place] [address] PCP - Insurance Payer PCP 07/07/24 Cameron Smith [address] [place] [id number] PCP - General Internal Medicine 07/07/24 documented as of this encounter
--- OUTSIDE RECORDS SUMMARY | 2024-07-09 20:05 | XMS_ITS ---
Author Name [facility] Organization Unknown Results Test Name/Text Value Interpretation Date Range Source TROPONIN I, HIGH SENSITIVITY 3ng/L Normal [id number] - [facility] TROPONIN I, HIGH SENSITIVITY 3ng/L Normal [id number] - [facility] CREATININE 0.8mg/dL Normal [id number] 0.6 - 1.2 [facility] POTASSIUM 3.9mmol/L Normal [id number] 3.6 - 5.1 [facility] BICARBONATE 21mmol/L Below low normal [id number] 23 - 32 [facility] GLOMERULAR FILTRATION RATE ML/MIN/1.73 SQ M.PREDICTED 108mL/min/1.73 m*2 Normal [id number] 60 - [facility] SODIUM 140mmol/L Normal [id number] 137 - 144 [facility] CHLORIDE 106mmol/L Normal [id number] 100 - 111 [facility] CALCIUM, TOTAL 9.9mg/dL Normal [id number] 8.4 - 10.2 [facility] UREA NITROGEN 16mg/dL Normal [id number] 8 - 24 [facility] ANION GAP 13mmol/L Above high normal [id number] 3 - 11 [facility] GLUCOSE 106mg/dL Normal [id number] 70 - 200 [facility] THYROID STIM HORMONE 2.27uIU/mL Normal [id number] 0.35 - 4.94 [facility] MAGNESIUM 1.9mg/dL Normal [id number] 1.8 - 3 [facility] RBC DISTRIBUTION WIDTH 13.2% Normal [id number] 11.6 - 14.8 [facility] AUTO NRBC % 0% Normal [id number] 0 - [address] [facility] [address] 3.810*3/uL Normal [id number] 1.4 - 6.[address] [facility] [address] 1.110*3/uL Above high normal [id number] 0.2 - 0.8 [facility] MCHC 33.6g/dL Normal [id number] 32 - 36 [facility] MCH 28.2pg Normal [id number] 26 - 34 [facility] IMMATURE GRANULOCYTE % 0.1% Normal [id number] 0 - 0.6 [facility] EOSINOPHIL % 2.3% Normal [id number] 0 - [address] [facility] [address] 0.110*3/uL Normal [id number] 0 - 0 .2 [facility] MCV 84fL Normal [id number] 80 - 100 [facility] PLATELET COUNT 78904*3/uL Normal [id number] 150 - 440 [facility] BASOPHILS % 0.8% Normal [id number] 0 - [address] [facility] [address] 3.710*3/uL Normal [id number] 0.7 - 4.[address] [facility] [address] 0.210*3/uL Normal [id number] 0 - 0.3 [facility] HEMATOCRIT 45.3% Normal [id number] 40 - 52 [facility] WHITE CELL COUNT 8.910*3/uL Normal [id number] 3.8 - 10. 6 [facility] RED CELL COUNT 5.3910*6/???L Normal [id number] 4.4 - 5. 9 [facility] MONOCYTE % 12% Normal [id number] 4 - 12 [facility] NEUTROPHIL % 42.7% Normal [id number] 40 - 70 [facility] HEMOGLOBIN 15.2g/dL Normal [id number] 13 - 18 [facility] LYMPHOCYTE % 42.1% Normal [id number] 20 - 50 [facility]
--- OUTSIDE RECORDS SUMMARY | 2024-07-09 20:05 | XMS_ITS | Clinical Summary ---
Author Organization Enabled Employment [facility] Address [address] [place] [address] Care Team Providers Care Pipe Fitter Apprentice Name Role Phone Pcp, No Primary Care Provider Unavailabl e Allergies Active Allergy Reactions Criticality Noted Date Comments Pavel Inhibitors Hives 09/11/2022 Immunizations Immunization Administration Dates Next Due TD (ADULT), 5 LF TETANUS TOX OID, PRESERVATIVE FREE, ABSORBED 09/11/2022 Social History Tobacco Use Types Packs/Day Years Used Date Smoking Tobacco: Never Assessed Sex and Gender Information Value Date Recorded Sex Assigned at Not on file Legal Sex Male 7:37 PM EDT Gender Identity Not on file Sexual Orientation Not on file Last Filed Vital Signs Vital Sign Reading Time Taken Comments Blood Pressure 154/85 09/11/2022 7:48 PM EDT Pulse 63 09/11/2022 7:48 PM EDT Temperature 36.3 ??C (97.4 ??F) 09/11/2022 7:48 PM ED T Respiratory Rate 18 09/11/2022 7:48 PM EDT Oxygen Saturation 99% 09/11/2022 7:48 PM EDT Inhaled Oxygen Concentration - - Weight 102.9 kg (226 lb 13.7 oz) 09/11/2022 7:48 PM EDT Height 190.5 cm (6' 3 ) 09/11/2022 7:48 PM EDT Body Mass Index 28.35 09/11/2022 7:48 PM EDT Plan of Treatment Health Maintenance Due Date Last Done Comments CT Colonography 1974 Colonoscopy 1974 Colorectal Cancer Screening 1974 FIT-DNA 1974 FIT 1974 FOBT 1974 Hepatitis C Screening 1974 Lipid Panel 1974 Sigmoidoscopy 1974 Annual Physical Exam 1992 COVID-19 Vaccine (2023-2 5 season) 2024 12/31/2020, 05/18/2020, 04/27/2020 Influenza Vaccine (#1) 2024 2, 04/02/2021, 04/08/2020 Tdap and Td Vaccines Adult 09/11/2032 09/11/2022 HIB Vaccines Aged Out No longer eligi [...] age to complete this topic Pneumococcal Vaccine: Peds ( 0 to 5 Yrs) and At-Risk Pts (6 to 49 Yrs) Aged Out No longer eligible b ased on patient's age to complete this topic RSV <20 Months Aged Out No longer donna gible based on patient's age to complete this topic Insurance [employer] Care Teams Pipe Fitter Apprentice Relationship Specialty Start Date End Date Pcp, No [place] [address] PCP - General 09/11/22
== END ==
LOC: HO.CARD 16:12
PROVIDERS: PCP Internal Medicine; Visit Provider Internal Medicine Cardiovascular Disease
DX: I48.91 Unspecified atrial fibrillation (principal)
CPT/HCPCS: 93306

== ENCOUNTER → 2024-07-09 17:15 | Outpatient (BNV) | payer OTHER, SELFPAY | PROVIDERS: PCP Internal Medicine; Visit Provider Internal Medicine Cardiovascular Disease | DX: I48.91 Unspecified atrial fibrillation (principal) | CPT/HCPCS: 93306 ==

== ENCOUNTER 2024-07-10 15:28 | Outpatient (AMB) | payer OTHER, SELFPAY ==
--- NOTE | 2024-07-10 15:32 | A.OFFVIS_ITS ---
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 Patient came to me for evaluation management of atrial fibrillation. Patient is extremely active physically and is involved in his factors and multiple other locations. Has high stress job and recently because office longstanding symptom of attention deficit in certain functions he was put on concerta to help him cope with his work. He said this was gradually uptitrated few days prior to his episode of atrial fibrillation. He said he was in usual state of health on Monday had a very busy day had traveled to [place] and had not been eating and drinking well and then that night had drink of alcohol which is not unusual for him and had high salt diet. Subsequently that night he went to bed around 22:00 and woke up around 12:00 with not feeling well and with palpitations. He took his pulse and knew that he was in atrial fibrillation therefore went to the local emergency room at [facility] as he lives in that area. He was confirmed to have atrial fibrillation by EKG and subsequently was told that they would pursue synchronized cardioversion although he declined it. Did not offer him any p.o. medications for chemical cardioversion. He then was released home around 05:00 in the morning and he knew that he was still in atrial fibrillation. He then went to bed and woke up around 08:00 and noted that his heart was back in sinus rhythm. Since then he has not had any episode. After discussion with me he was started him on Eliquis for short period time. He was longstanding history of hypertension which is currently well controlled on amlodipine and losartan. 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 He was started propranolol many many years before that for social anxiety. He said that has helped him as well from that perspective. He said he was longstanding history of frequent palpitations mostly short lasting, has never been officially diagnose but he thinks this could have been extra systoles such as PVC. He was no prior history of atrial fibrillation. He is very concerned about this new development of atrial fibrillation. He had a stress test last year at [facility] for atypical chest pain which at very high workload was negative for ischemia with good chronotropic competence with a 14 MET physical capacity. He had a coronary calcium score which was 0. Patient was echocardiogram yesterday which shows normal structure of the heart. He said he exercise intensely when he exercises on a daily basis. He does complain of daytime fatigue. [facility] Medical History Anxiety HTN (hypertension) ADD (attention deficit disorder) Essential tremor Paroxysmal atrial fibrillation Family History Mother New onset a-fib Social History Alcohol intake: never Patient Tobacco Use Status: Never used Tobacco Review of Systems Const Denies chills, Denies fatigue, Denies fever(s), Denies frequent falls, Denies weakness, Denies weight gain and Denies weight loss ENT Denies dizziness Card Denies chest pain, Denies leg edema, Denies lightheadedness, Denies palpitations, Denies dyspnea, Denies dyspnea on exertion and Denies orthopnea Resp Denies cough, Denies dyspnea and Denies dyspnea on exertion GI Denies bloating and Denies change in bowel habits Musc Denies muscle weakness, Denies numbness and Denies tingling Neuro Denies dizziness, Denies frequent falls, Denies numbness, Denies tingling and Denies weakness Endo Denies fatigue and Denies palpitations Physical Exam Vital Signs: Last Vital Signs Pulse 40 L 07/10/24 15:34 BP 120/64 07/10/24 15:34 BMI result Body Mass Index 28.2 Const General: cooperative, comfortable, no acute distress, well developed, alert, awake, Physically active and anxious Nutritional Appearance: average body habitus and well nourished Orientation/consciousness: patient oriented x3 Limitations: no limitations HEENT Head: Yes normocephalic and Yes atraumatic Neck Neck: Yes trachea midline, Yes supple and No no JVD Carotids: no bruits Resp Effort & Inspection: normal respiratory effort Auscultation: clear to auscultation bilaterally Cardio Jugular venous distension: no JVD Palpation: normal PMI Rate: regular rate Rhythm: regular rhythm Heart sounds: S1 normal heart sound present, S2 normal heart sound present, no click, no gallops, no murmurs and no rubs GI Auscultation: normal bowel sounds Skin General skin exam: no rashes or lesions noted Neuro General: patient oriented x3 and no focal motor deficits Extrem General: Yes no clubbing, cyanosis or edema Psych Appearance: grossly normal Affect: Anxious affect present Office Procedures EKG Details: EKG shows sinus bradycardia at 40 beats per minute with right bundle-branch block 01457-[id number], Complete Assessment & Plan Assessment & Plan (1) Paroxysmal atrial fibrillation: Code(s): I48.0 - Paroxysmal atrial fibrillation Category: Medical Plan: 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 He does have prior propensity for arrhythmias most likely PACs. We discussed in details pathophysiology of atrial fibrillation. Currently he has underlying risk factor of hypertension, sleep apnea can not be ruled out given his daytime history of fatigue and noted snoring by his . Workup for sleep apnea with a home sleep study. Will also continue with aggressive management blood pressure which is currently well optimized. I have advised him to avoid using his ADD drug at this point time for the near future. We discussed about avoiding other stimulants such as excessive caffeine and alcohol use. He said he only seldomly uses alcohol at this time. I would prescribe him Eliquis for about a month and then in the long run given his normal biatrial chamber size and 1st episode of atrial fibrillation would hold off on long-term oral anticoagulation therapy. He prefers not to be on oral anticoagulant therapy given that he was very active lifestyle. He prefers to have Watchman device placed if necessary if he requires long-term anticoagulati on, although he does not have indication for Watchman device at this point time and this was discussed with him. We discussed about management of atrial fibrillation with a pill in the pocket approach with flecainide given that he was no evidence of ischemia and has normal LV function. We will prescribe him the same but advised him that the 1st time he has to take flecainide has to be done in the monitored setting and best done it in the emergency room. He understands. We also discussed that given that he was highly symptomatic will pursue pipe smoking machine offbearer rhythm management. If he continues to have frequent episodes of atrial fibrillation would consider catheter ablation as a 1st choice for his treatment option. He understands agrees. For now will reduce his propranolol, see below continue maintain activity and lifestyle. Stress mitigation strategies were discussed. He is well verse with monitoring for atrial fibrillation. (2) Sinus bradycardia: Code(s): R00.1 - Bradycardia, unspecified Category: Medical Plan: Sinus bradycardia most likely combination of propranolol therapy as well as enhance vagal tone given his high functional status. He does have symptoms of fatigue although his stress test last year showed excellent chronotropic competence and I do not think this needs to be treated any further. I have advised him to reduce his propranolol dose to 10 mg to see if this will help his symptoms of fatigue during the daytime. Also suggest to undergo sleep study as mentioned. Will follow-up with him in 3 months time, sooner p.r.n.. Thank you for allowing me to partake in his care. Greater than 45 minutes was spent Coding Level of Care Code New Pt Level 5 (38563) Complex EM visit Add On G2211 Diagnoses Paroxysmal atrial fibrillation I48.0 Sinus bradycardia R00.1 CPT Codes EKG - CPT: 06580-[id number], Complete ([id number])
[2024-07-10 15:34] VITALS: BP 120/64; PULSE 40; BMI 28.2
--- OUTSIDE RECORDS SUMMARY | 2024-07-10 18:44 | XMS_ITS | Clinical Summary ---
Author Organization [facility] Address [address] [id number] Care Team Providers Care Screen Printing Inspector Name Role Phone Cameron Smith Unavailable Cameron Smith Primary Care Provider [phone] Allergies Active Allergy Reactions Criticality Noted Date [...] EST - 07/07/2024 4:58 AM EST Emergency [facility] Department of Emergency Services [address] [place] [address] Kenji Trivedi MD Atrial fibrillation, unspecified type [...] <3 <=35 ng/L 07/07/2024 3:56 AM EST [facility] Comment:Refer to the high se nsitivity TnI algorithm for further workup Blood Venous blood specimen / Unknown Venipuncture / Unknown 07/07/2024 3:21 AM EST 07/07/2024 3:26 AM EST us Kenji Trivedi MD LAB BLOOD ORDERABLES Natali tapia Result [facility] [address] [place] [address], [place] [phone] * (ABNORMAL) Complete Blood Count with Auto Differential (07/07/2024 1:18 AM [facility]) [facility] White Cell Count 8.9 3.8 - 10.6 10*3/uL 07/07/2024 1:26 AM [facility] Red Cell Count 5.39 4.40 - 5.90 10*6/??L 07/07/2024 1:26 AM [facility] Hemoglobin 15.2 13.0 - 18.0 g/dL 07/07/2024 1:26 AM [facility] Hematocrit 45.3 40.0 - 52.0 % 07/07/2024 1:26 AM [facility] MCV 84.0 80.0 - 100.0 fL 07/07/2024 1:26 AM [facility] MCH 28.2 26.0 - 34.0 pg 07/07/2024 1:26 AM [facility] MCHC 33.6 32.0 - 36.0 g/dL 07/07/2024 1:26 AM [facility] RBC Distribution Width 13.2 11.6 - 14.8 % 07/07/2024 1:26 AM [facility] Platelet count 247 150 - 440 10*3/uL 07/07/2024 1:26 AM [facility] Neutrophils 42.7 40.0 - 70.0 % 07/07/2024 1:26 AM [facility] Immature Granulocytes 0.1 0.0 - 0.6 % 07/07/2024 1:26 AM [facility] Lymphocytes 42.1 20.0 - 50.0 % 07/07/2024 1:26 AM [facility] Monocytes 12.0 4.0 - 12.0 % 07/07/2024 1:26 AM [facility] Eosinophils 2.3 0.0 - 6.0 % 07/07/2024 1:26 AM EST [facility] Basophils 0.8 0.0 - 2.0 % 07/07/2024 1:26 AM EST [facility] Absolute Neutrophil Ct. 3.8 1.4 - 6.3 10*3/uL 07/07/2024 1:26 AM EST [facility] Absolute Lymphocyte Ct. 3.7 0.7 - 4.5 10*3/uL 07/07/2024 1:26 AM EST [facility] Absolute Monocyte Ct. 1.1(H) 0.2 - 0.8 10*3/uL 07/07/2024 1:26 AM EST [facility] Absolute Eosinophil Ct. 0.2 0.0 - 0.3 10*3/uL 07/07/2024 1:26 AM EST [facility] Absolute Basophil Ct. 0.1 0.0 - 0.2 10*3/uL 07/07/2024 1:26 AM EST [facility] nRBC 0.0 0.0 - 0.0 % 07/07/2024 1:26 AM EST [facility] Blood Venous blood specimen / Unknown Venipuncture / Unknown 07/07/2024 1:18 AM EST 07/07/2024 1:24 AM EST Kenji Trivdei MD LAB BLOOD ORDERABLES Natali tapia Result [facility] [address] [place] [address], * TSH (07/07/2024 1:18 AM EST) [facility] TSH 2.27 0.35 - 4.94 uIU/mL 07/07/2024 2:27 AM EST [facility] Blood Venous blood specimen / Unknown Venipuncture / Unknown 07/07/2024 1:18 AM EST 07/07/2024 1:23 AM EST us Kenji Trivedi MD LAB BLOOD ORDERABLES NO S TAT Final Result [facility] [address] [place] [address], [place] [phone] * Magnesium (07/07/2024 1:18 AM EST) Magnesium 1.9 1.8 - 3.0 mg/dL 07/07/2024 1:56 AM EST [facility] Blood Venous blood specimen / Unknown Venipuncture / Unknown 07/07/2024 1:18 AM EST 07/07/2024 1:23 AM EST us Kenji Trivedi MD LAB BLOOD ORDERABLES Natali l Result Performing Organization Address City/[facility]/ZIP Co de Phone Number [facility] [address] [place] [address], [place] [phone] * (ABNORMAL) Basic metabolic panel (07/07/2024 1:18 AM EST) Sodium 140 137 - 144 mmol/L 07/07/2024 1:56 AM EST [facility] Potassium 3.9 3.6 - 5.1 mmol/L 07/07/2024 1:56 AM EST [facility] Chloride 106 100 - 111 mmol/L 07/07/2024 1:56 AM EST [facility] CO2 21(L) 23 - 32 mmol/L 07/07/2024 1:56 AM EST [facility] Anion gap 13(H) 3 - 11 mmol/L 07/07/2024 1:56 AM EST [facility] BUN 16 8 - 24 mg/dL 07/07/2024 1:56 AM EST [facility] Creatinine 0.80 0.60 - 1.20 mg/dL 07/07/2024 1:56 AM [facility] Glucose 106 70 - 200 mg/dL 07/07/2024 1:56 AM [facility] Comment: Normal fasting glucose ?75-99 mg/dL Impaired fasting glucose ?100 - 125 mg/dL Fasting glucose ? >125 mg/dL - provisional diagnosis of diabetes mellitus Random glucose ?>= 200 mg/dl is considered diagnostic for diabetes ADA Guidelines: Classification and Diagnosis of Diabetes: Standards of Medical Care in Diabetes - 2020, Diabetes Care 2020; S15-S33. Calcium 9.9 8.4 - 10.2 mg/dL 07/07/2024 1:56 AM [facility] eGFR 108 >60 mL/min/1. 73m*2 07/07/2024 1:56 [facility] Comment: Calculation based on the Chronic [...] ? 75 ml/min/1.73 m2 ? Pursuant to [place] Public Act 06-120(1)(b)(1). ?? The 2020 CKD-EPI calculation used to estimate eGFR has only been validated for patients 18 years or older. Blood Venous blood specimen / Unknown Venipuncture / Unknown 07/07/2024 1:18 AM EST 07/07/2024 1:23 AM EST us Kenji Trivedi MD LAB BLOOD ORDERABLES Natali tapia Result [facility] [address] [place] [address], * ECG 12 lead (07/07/2024 12:53 AM EST) 07/07/2024 12:5 3 AM EST 07/07/2024 3:43 PM EST Narrative [facility] ([facility]) - 07/07/2024 3:43 PM EST Ventricular Rate: 80 BPM QRS Duration: 106 ms Q-T Interval: 372 ms QTC Calculation(Bazett): 429 ms R Richmond: -37 degrees T Richmond: 18 degrees Diagnosis: Atrial fibrillation Left axis deviation Pulmonary disease pattern Incomplete right bundle branch block Abnormal ECG No previous ECGs available Confirmed by Josias Gómez ([id number]) on 07/07/2024 7:59:12 AM Also confirmed by Josias Gómez ([id number]), offline editor Patricia Barton ([id number]) on 07/07/2024 3:43:40 PM Procedure Note Josias Gómez MD - 07/07/2024 Ventricular Rate: 80 BPM QRS Duration: 106 ms Q-T Interval: 372 ms QTC Calculation(Bazett): 429 ms R Richmond: -37 degrees T Richmond: 18 degrees Diagnosis: Atrial fibrillation Left axis deviation Pulmonary disease pattern Incomplete right bundle branch block Abnormal ECG No previous ECGs available Confirmed by Josias Gómez ([id number]) on 07/07/2024 7:59:12 AM Also confirmed by Josias Gómez ([id number]), offline editor Patricia Barton ([id number]) on 07/07/2024 3:43:40 PM us Kenji Trivedi MD ECG ORDERABLES Final Res ult [facility] ([place]) [place] [address], from Last 3 Months Insurance O NON PAR Care Teams Screen Printing Inspector Relationship Specialty Start Date End Date Cameron Smith [phone] [address] PCP - Insurance Payer PCP 07/07/24 Cameron Smith [address] [place] [address] PCP - General Internal Medicine 07/07/24
--- OUTSIDE RECORDS SUMMARY | 2024-07-10 18:44 | XMS_ITS | Encounter Summary ---
Author Organization [facility] Address [address] [place] [address] Care Team Providers Care Solar Project Manager Name Role Phone Cameron Smith Unavailable Cameron Smith Primary Care Provider [phone] Reason for Referral * Consultation (Routine) - Pending Review Specialty Diagnoses / Procedures Referred By Olegario t Referred To Contact Cardiology Kenji Trivedi MD [address] [place], [place] [address] [address] Phone: tel: fax: [facility] Department of Cardiology [address] [place] [address] Phone: tel: fax: Referral ID Status Reason Start Date Expiration Date Visits Requested Visits Authorized [id number] Pending Review Specialty Services Required 07/07/2024 07/07/2025 1 1 Reason for Visit * Reason Comments Chest Pain Encounter Details Date Type Department Care Team (Late st Contact Info) Description 07/07/2024 12:48 AM EST - 07/07/2024 4:58 AM EST Emergency [facility] Department of Emergency Services [address] [place] [address] Kenji Trivedi MD [address] [place], [place] [address] [address] Atrial fibrillation, unspecified type (HCC) (Primary Dx) [...] and will follow-up with cardiology either at [facility] or through your own resources soon as possible. He will continue your medication for bloodpressure. If your symptoms change, worsen or you have any symptoms or have any other problems or concerns, you return to emergency department. * Attachments The following attachments cannot be sent through Care Everywhere. * Atrial Fibrillation [id number] (Montenegrin) documented in this encounter Medications at Time [...] the cardiology. Even though he lives in [place] nearby [facility], he works in [employer] and therefore wants to contact his college that whom he is very f amiliar with. At the end, we made a decision to start him on Eliquis with the first dose given in the emergency department. He was given prescription for next 30 days. He was given referral to [facility] cardiology as a backup option. He plans [...] by applewatch. 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 A-fib on EKG and monitor, rate controlled [...] ED Physician in the absence of a campaign management specialist: yes Previous ECG: Previous ECG: Unavailable Interpretation: [...] Troponin I (07/07/2024 3:21 AM EST) Pathologist [facility] high sensitivity Troponin I <3 <=35 ng/L 07/07/2024 3:56 AM EST [facility] Comment:Refer to the high se nsitivity TnI algorithm for further workup Blood Venous blood specimen / Unknown Venipuncture / Unknown 07/07/2024 3:21 AM EST 07/07/2024 3:26 AM EST us Kenji Trivedi MD LAB BLOOD ORDERABLES Natali l Result [facility] [address] [place] [address], * TSH (07/07/2024 1:18 AM EST) Pathologist [facility] TSH 2.27 0.35 - 4.94 uIU/mL 07/07/2024 2:27 AM EST [facility] Blood Venous blood specimen / Unknown Venipuncture / Unknown 07/07/2024 1:18 AM EST 07/07/2024 1:23 AM EST us Kenji Trivedi MD LAB BLOOD ORDERABLES NO S TAT Final Result [facility] [address] [place] [address], * (ABNORMAL) Complete Blood Count with Auto Differential (07/07/2024 1:18 AM EST) [facility] White Cell Count 8.9 3.8 - 10.6 10*3/uL 07/07/2024 1:26 AM [facility] Red Cell Count 5.39 4.40 - 5.90 10*6/??L 07/07/2024 1:26 AM [facility] Hemoglobin 15.2 13.0 - 18.0 g/dL 07/07/2024 1:26 AM [facility] Hematocrit 45.3 40.0 - 52.0 % 07/07/2024 1:26 AM [facility] MCV 84.0 80.0 - 100.0 fL 07/07/2024 1:26 AM [facility] MCH 28.2 26.0 - 34.0 pg 07/07/2024 1:26 AM [facility] MCHC 33.6 32.0 - 36.0 g/dL 07/07/2024 1:26 AM [facility] RBC Distribution Width 13.2 11.6 - 14.8 % 07/07/2024 1:26 AM [facility] Platelet count 247 150 - 440 10*3/uL 07/07/2024 1:26 AM [facility] Neutrophils 42.7 40.0 - 70.0 % 07/07/2024 1:26 AM [facility] Immature Granulocytes 0.1 0.0 - 0.6 % 07/07/2024 1:26 AM [facility] Lymphocytes 42.1 20.0 - 50.0 % 07/07/2024 1:26 AM [facility] Monocytes 12.0 4.0 - 12.0 % 07/07/2024 1:26 AM [facility] Eosinophils 2.3 0.0 - 6.0 % 07/07/2024 1:26 AM EST [facility] Basophils 0.8 0.0 - 2.0 % 07/07/2024 1:26 AM EST [facility] Absolute Neutrophil Ct. 3.8 1.4 - 6.3 10*3/uL 07/07/2024 1:26 AM EST [facility] Absolute Lymphocyte Ct. 3.7 0.7 - 4.5 10*3/uL 07/07/2024 1:26 AM EST [facility] Absolute Monocyte Ct. 1.1(H) 0.2 - 0.8 10*3/uL 07/07/2024 1:26 AM EST [facility] Absolute Eosinophil Ct. 0.2 0.0 - 0.3 10*3/uL 07/07/2024 1:26 AM EST [facility] Absolute Basophil Ct. 0.1 0.0 - 0.2 10*3/uL 07/07/2024 1:26 AM EST [facility] nRBC 0.0 0.0 - 0.0 % 07/07/2024 1:26 AM EST [facility] Blood Venous blood specimen / Unknown Venipuncture / Unknown 07/07/2024 1:18 AM EST 07/07/2024 1:24 AM EST Kenji Trivedi MD LAB BLOOD ORDERABLES Natali tapia Result [facility] [address] [place] [address], * High Sensitivity Troponin I (07/07/2024 1:18 AM EST) high sensitivity Troponin I <3 <=35 ng/L 07/07/2024 1:56 AM EST [facility] Comment:Refer to the high se nsitivity TnI algorithm for further workup Blood Venous blood specimen / Unknown Venipuncture / Unknown 07/07/2024 1:18 AM EST 07/07/2024 1:23 AM EST us Kenji Trivedi MD LAB BLOOD ORDERABLES Natali l Result [facility] [address] [place] [address], [place] [phone] * Magnesium (07/07/2024 1:18 AM EST) Magnesium 1.9 1.8 - 3.0 mg/dL 07/07/2024 1:56 AM EST [facility] Blood Venous blood specimen / Unknown Venipuncture / Unknown 07/07/2024 1:18 AM EST 07/07/2024 1:23 AM EST us Kenji Trivedi MD LAB BLOOD ORDERABLES Natali l Result Performing Organization Address City/[facility]/ZIP Co de Phone Number [facility] [address] [place] [address], [place] [phone] * (ABNORMAL) Basic metabolic panel (07/07/2024 1:18 AM EST) Sodium 140 137 - 144 mmol/L 07/07/2024 1:56 AM EST [facility] Potassium 3.9 3.6 - 5.1 mmol/L 07/07/2024 1:56 AM EST [facility] Chloride 106 100 - 111 mmol/L 07/07/2024 1:56 AM EST [facility] CO2 21(L) 23 - 32 mmol/L 07/07/2024 1:56 AM EST [facility] Anion gap 13(H) 3 - 11 mmol/L 07/07/2024 1:56 AM EST [facility] BUN 16 8 - 24 mg/dL 07/07/2024 1:56 AM [facility] Creatinine 0.80 0.60 - 1.20 mg/dL 07/07/2024 1:56 AM [facility] Glucose 106 70 - 200 mg/dL 07/07/2024 1:56 AM [facility] Comment: Normal fasting glucose ?75-99 [...] 8.4 - 10.2 mg/dL 07/07/2024 1:56 AM [facility] eGFR 108 >60 mL/min/1. 73m*2 07/07/2024 1:56 AM [facility] Comment: Calculation based on the [...] ? 75 ml/min/1.73 m2 ? Pursuant to [place] Public Act 06-120(1)(b)(1). ?? The 2020 CKD-EPI calculation used to estimate eGFR has only been validated for patients 18 years or older. Blood Venous blood specimen / Unknown Venipuncture / Unknown 07/07/2024 1:18 AM EST 07/07/2024 1:23 AM EST Kenji Trivedi MD LAB BLOOD ORDERABLES Natali tapia Result Performing Organization Address City/State/[facility] Co de Phone Number [facility] [address] [place] [address], * ECG 12 lead (07/07/2024 12:53 AM EST) 07/07/2024 12:5 3 AM EST 07/07/2024 3:43 PM EST Narrative [facility] - 07/07/2024 3:43 PM EST Ventricular Rate: 80 BPM QRS Duration: 106 ms Q-T Interval: 372 ms QTC Calculation(Bazett): 429 ms R [place]: -37 degrees T [place]: 18 degrees Diagnosis: Atrial fibrillation Left axis deviation Pulmonary disease pattern Incomplete right bundle branch block Abnormal ECG No previous ECGs available Confirmed by Josias Gómez ([id number]) on 07/07/2024 7:59:12 AM Also confirmed by Josias Gómez ([id number]), desk editor Patricia Barton ([id number]) on 07/07/2024 3:43:40 PM Procedure Note Josias Gómez MD - 07/07/2024 Ventricular Rate: 80 BPM QRS Duration: 106 ms Q-T Interval: 372 ms QTC Calculation(Bazett): 429 ms R [place]: -37 degrees T [place]: 18 degrees Diagnosis: Atrial fibrillation Left axis deviation Pulmonary disease pattern Incomplete right bundle branch block Abnormal ECG No previous ECGs available Confirmed by oJsias Gómez ([id number]) on 07/07/2024 7:59:12 AM Also confirmed by Josias Gómez ([id number]), desk editor Patricia Braton ([id number]) on 07/07/2024 3:43:40 PM us Kenji Trivedi MD ECG ORDERABLES Final Res ult [facility] ([place]) [place] [address], documented in this encounter Visit Diagnoses Diagnosis [...] RN) documented in this encounter Care Teams Solar Project Manager Relationship Specialty Start Date End Date Sarah Cameron Tamy [address] [place] [address] PCP - Insurance Payer PCP 07/07/24 Cameron Smith [address] [place] [phone] PCP - General Internal Medicine 07/07/24 documented as of this encounter
--- OUTSIDE RECORDS SUMMARY | 2024-07-10 18:44 | XMS_ITS | Clinical Summary ---
Author Organization [facility] Address [address] [place] [address] Care Team Providers Care Enologist Name Role Phone Pcp, No Primary Care [...] this topic Meningococcal Vaccine Aged Out No lavlele clifford eligible based on patient's age to complete this topic Pneumococcal Vaccine: Peds ( 0 to 5 Yrs) and At-Risk Pts (6 to 49 Yrs) Aged Out No longer eligible b ased on patient's age to complete this topic RSV <20 Months Aged Out No longer donna gible based on patient's age to complete this topic Insurance [employer] Care Teams Enologist Relationship Specialty Start Date End Date Pcp, No [place] [address] PCP - General 09/11/22
--- OUTSIDE RECORDS SUMMARY | 2024-07-10 18:44 | XMS_ITS | Clinical Summary ---
Author Organization [facility] Address [address] [place] [address] Phone Care Team Providers Care Aviation Warfare Systems Operator Name Role Phone Cameron Smith MD Primary Care Provider [phone] Allergies Active Allergy Reactions Criticality Noted Date [...] 05/10/2024 9:30 AM EST Office Visit Neurosurgery [facility] [address] [facility] [address] [place] [address] Laura Canales MD Lumbar back pain with radiculopathy affecting left lower extremity (Primary Dx) 05/07/2024 10:45 AM EST - 05/07/2024 11:59 PM EST Hospital Encounter [facility] [address] [place] [address] Low back pain radiating to [...] Signed Date: 05/07/2024 13:31 ET Workstation ID: [id number] Transcribed By: Self Edit Transcribed Date: 05/07/2024 [...] Signed Date: 05/07/2024 13:31 ET Workstation ID: [id number] Transcribed By: Self Edit Transcribed Date: 05/07/2024 13:10 ET us Laura Canales MD IMG MRI PROCEDURES Final Result from Last 3 Months Insurance Care Teams Aviation Warfare Systems Operator Relationship Specialty Start Date End Date Cameron Smith MD [address] [place] [address] PCP - General Internal Medicine 05/10/24
== END 2024-07-11 04:45 | disposition home or self-care (01) ==
PROVIDERS: PCP Internal Medicine; Visit Provider Internal Medicine Cardiovascular Disease
DX: I48.0 Paroxysmal atrial fibrillation (principal); R00.1 Bradycardia, unspecified
CPT/HCPCS: 93010; 99215

== ENCOUNTER → 2024-07-10 15:28 | Outpatient (BNVA) | payer SELFPAY | PROVIDERS: Visit Provider Internal Medicine Cardiovascular Disease | DX: I48.0 Paroxysmal atrial fibrillation (principal); R00.1 Bradycardia, unspecified | CPT/HCPCS: 93005 ==

== ENCOUNTER → 2024-08-13 07:06 | Outpatient (BNV) | payer OTHER, SELFPAY | PROVIDERS: PCP Internal Medicine; Visit Provider Internal Medicine | DX: I49.1 Atrial premature depolarization (principal); I49.3 Ventricular premature depolarization | CPT/HCPCS: 93248 ==

== ENCOUNTER → 2024-08-13 08:13 | Outpatient (REF) | payer OTHER, SELFPAY ==
--- OUTSIDE RECORDS SUMMARY | 2024-08-13 08:27 | XMS_ITS | Clinical Summary ---
Author Organization 175 [facility] Address [address] [place] [address] Phone Care Team Providers Care Fountain Dispenser Name Role Phone Cameron Smith MD Primary Care Provider Allergies Active Allergy Reactions Criticality Noted Date [...] at any time if his symptoms change. Immunizations Name Administration Dates Next Due Influenza [...] Done Comments Hepatitis B Vaccines (1 of + 3-dose series) 1993 COVID-19 Vaccine (2023- season) [...] age to complete this topic Meningococcal B Vaccine Aged Out No l onger eligible based on patient's age to complete [...] patient's age to complete this topic Insurance Care Teams Fountain Dispenser Relationship Specialty Start Date End Date Cameron Smith MD [address] [place] [id number] PCP - General Internal Medicine 05/10/24
--- OUTSIDE RECORDS SUMMARY | 2024-08-13 08:27 | XMS_ITS | Clinical Summary ---
Author Organization [facility] Address [address] [place] [address] Care Team Providers Care Financial Processing Clerk Name Role Phone Pcp, No Primary Care [...] season) 2024 12/31/2020, 05/18/2020, 04/27/2020 Influenza Vaccine (Season Ended) 2025 03/14/2022, 04/02/2021, 04/08/2020 Tdap and Td Vaccines Adult [...] this topic Insurance [employer]CIAL GENERIC Care Teams Financial Processing Clerk Relationship Specialty Start Date End Date Pcp, [place] [address] PCP - General 09/11/22
--- OUTSIDE RECORDS SUMMARY | 2024-08-13 08:27 | XMS_ITS | Clinical Summary ---
Author Organization [facility] Address [address] [place] [id number] Care Team Providers Care Belt Sander Stone Name Role Phone Cameron Smith Unavailable Cameron Smith Primary Care Provider Allergies Active Allergy Reactions [...] mg total) before bedtime. 60 tablet 07/07/2024 08/07/19 25 Active Problems No known active problems Encounters Date Type Department Care Team Description 07/07/2024 12:48 AM EST - 07/07/2024 4:58 AM EST Emergency [facility] Department of Emergency Services [address] [place], [place] [id number] Kenji Trivedi MD Atrial fibrillation, unspecified type [...] (1 - Tdap) 09/12/2022 09/11/2022 COVID-19 Vaccine (4 - 2023- season) 2024 12/31/2020, 05/18/2020, 04/27/2020 Zoster Vaccines [...] 5 Years) and At-Risk Patients (6 to 49 Years) Aged Out No longer eligible based [...] of2 resultswithin the time period is included. [facility] high sensitivity Troponin I <3 <=35 ng/L 07/07/2024 3:56 AM EST [facility] Comment:Refer to the high se nsitivity TnI algorithm for further workup Blood Venous blood specimen / Unknown Venipuncture / Unknown 07/07/2024 3:21 AM EST 07/07/2024 3:26 AM EST us Kenji Trivedi MD LAB BLOOD ORDERABLES Natali tapia Result [facility] [address] [place] [address], [place] [phone] * (ABNORMAL) Complete Blood Count with Auto Differential (07/07/2024 1:18 AM EST) [facility] White Cell Count 8.9 3.8 - 10.6 10*3/uL 07/07/2024 1:26 AM [facility] Red Cell Count 5.39 4.40 - 5.90 10*6/??L 07/07/2024 1:26 AM [facility] Hemoglobin 15.2 13.0 - 18.0 g/dL 07/07/2024 1:26 AM [facility] Hematocrit 45.3 40.0 - 52.0 % 07/07/2024 1:26 AM [facility] MCV 84.0 80.0 - 100.0 fL 07/07/2024 1:26 AM [facility] MCH 28.2 26.0 - 34.0 pg 07/07/2024 1:26 AM [facility] MCHC 33.6 32.0 - 36.0 g/dL 07/07/2024 1:26 AM [facility] RBC Distribution Width 13.2 11.6 - 14.8 % 07/07/2024 1:26 AM [facility] Platelet count 247 150 - 440 10*3/uL 07/07/2024 1:26 AM [facility] Neutrophils 42.7 40.0 - 70.0 % 07/07/2024 1:26 AM [facility] Immature Granulocytes 0.1 0.0 - 0.6 % 07/07/2024 1:26 AM [facility] Lymphocytes 42.1 20.0 - 50.0 % 07/07/2024 1:26 AM [facility] Monocytes 12.0 4.0 - 12.0 % 07/07/2024 1:26 AM [facility] Eosinophils 2.3 0.0 - 6.0 % 07/07/2024 1:26 AM [facility] Basophils 0.8 0.0 - 2.0 % 07/07/2024 1:26 AM [facility] Absolute Neutrophil Ct. 3.8 1.4 - 6.3 10*3/uL 07/07/2024 1:26 AM EST [facility] Absolute Lymphocyte Ct. 3.7 0.7 - 4.5 10*3/uL 07/07/2024 1:26 AM EST [facility] Absolute Monocyte Ct. 1.1(H) 0.2 - 0.8 10*3/uL 07/07/2024 1:26 AM EST [facility] Absolute Eosinophil Ct. 0.2 0.0 - 0.3 10*3/uL 07/07/2024 1:26 AM EST [facility] Absolute Basophil Ct. 0.1 0.0 - 0.2 10*3/uL 07/07/2024 1:26 AM EST [facility] nRBC 0.0 0.0 - 0.0 % 07/07/2024 1:26 AM EST [facility] Blood Venous blood specimen / Unknown Venipuncture / Unknown 07/07/2024 1:18 AM EST 07/07/2024 1:24 AM EST us Kenji Trivedi MD LAB BLOOD ORDERABLES Natali l Result [facility] [address] [place] [address], * TSH (07/07/2024 1:18 AM EST) TSH 2.27 0.35 - 4.94 uIU/mL 07/07/2024 2:27 AM EST [facility] Blood Venous blood specimen / Unknown Venipuncture / Unknown 07/07/2024 1:18 AM EST 07/07/2024 1:23 AM EST us Kenji Triveid MD LAB BLOOD ORDERABLES NO S TAT Final Result [facility] [address] [place] [address], * Magnesium (07/07/2024 1:18 AM EST) Pathologist [facility] Magnesium 1.9 1.8 - 3.0 mg/dL 07/07/2024 1:56 AM EST [facility] Blood Venous blood specimen / Unknown Venipuncture / Unknown 07/07/2024 1:18 AM EST 07/07/2024 1:23 AM EST Kenji Trivedi MD LAB BLOOD ORDERABLES Natali tapia Result [facility] [address] [place] [address], * (ABNORMAL) Basic metabolic panel (07/07/2024 1:18 AM EST) Pathologist [facility] Sodium 140 137 - 144 mmol/L 07/07/2024 1:56 AM EST [facility] Potassium 3.9 3.6 - 5.1 mmol/L 07/07/2024 1:56 AM EST [facility] Chloride 106 100 - 111 mmol/L 07/07/2024 1:56 AM EST [facility] CO2 21(L) 23 - 32 mmol/L 07/07/2024 1:56 AM EST [facility] Anion gap 13(H) 3 - 11 mmol/L 07/07/2024 1:56 AM EST [facility] BUN 16 8 - 24 mg/dL 07/07/2024 1:56 AM EST [facility] Creatinine 0.80 0.60 - 1.20 mg/dL 07/07/2024 1:56 AM EST [facility] Glucose 106 70 - 200 mg/dL 07/07/2024 1:56 AM EST [facility] Comment: Normal fasting glucose ?75-99 mg/dL Impaired fasting glucose ?100 - 125 mg/dL Fasting glucose ? >125 mg/dL - provisional diagnosis of diabetes mellitus Random glucose ?>= 200 mg/dl is considered diagnostic for diabetes ADA Guidelines: Classification and Diagnosis of Diabetes: Standards of Medical Care in Diabetes - 2020, Diabetes Care 2020; S15-S33. Calcium 9.9 8.4 - 10.2 mg/dL 07/07/2024 1:56 AM [facility] eGFR 108 >60 mL/min/1. 73m*2 07/07/2024 1:56 AM [facility] Comment: Calculation based on the [...] ? 75 ml/min/1.73 m2 ? Pursuant to [place] Public Act 06-120(1)(b)(1). ?? The 2020 CKD-EPI calculation used to estimate eGFR has only been validated for patients 18 years or older. Blood Venous blood specimen / Unknown Venipuncture / Unknown 07/07/2024 1:18 AM EST 07/07/2024 1:23 AM EST Kenji Trivedi MD LAB BLOOD ORDERABLES Natali tapia Result Performing Organization Address City/State/[facility] Co de Phone Number [facility] [address] [place] [address], * ECG 12 lead (07/07/2024 12:53 AM EST) 07/07/2024 12:5 3 AM EST 07/07/2024 3:43 PM EST Narrative [facility] - 07/07/2024 3:43 PM EST Ventricular Rate: 80 BPM QRS Duration: 106 ms Q-T Interval: 372 ms QTC Calculation(Bazett): 429 ms R [place]: -37 degrees T Haslet: 18 degrees Diagnosis: Atrial fibrillation Left axis deviation Pulmonary disease pattern Incomplete right bundle branch block Abnormal ECG No previous ECGs available Confirmed by Josias Gómez ([id number]) on 07/07/2024 7:59:12 AM Also confirmed by Josias Gómez ([id number]), desk editor Patricia Barton ([id number]) on 07/07/2024 3:43:40 PM Procedure Note Josias Gómez MD - 07/07/2024 Ventricular Rate: 80 BPM QRS Duration: 106 ms Q-T Interval: 372 ms QTC Calculation(Bazett): 429 ms R [place]let: -37 degrees T Haslet: 18 degrees Diagnosis: Atrial fibrillation Left axis deviation Pulmonary disease pattern Incomplete right bundle branch block Abnormal ECG No previous ECGs available Confirmed by Josias Gómez ([id number]) on 07/07/2024 7:59:12 AM Also confirmed by Josias Gómez ([id number]), desk editor Patricia Barton ([id number]) on 07/07/2024 3:43:40 PM us Kenji Trivedi MD ECG ORDERABLES Final Res ult [facility] ([place]) [place] [address], from Last 3 Months Insurance O NON PAR COMMERCIAL GENERIC Care Teams Belt Sander Stone Relationship Specialty Start Date End Date Cameron Smith [address] [facility] [address] [place] [phone] PCP - Insurance Payer PCP 07/07/24 Cameron Smith [address] [place] [address] PCP - General Internal Medicine 07/07/24
== END ==
LOC: HO.CARD 08:13
PROVIDERS: PCP Internal Medicine; Visit Provider Internal Medicine Cardiovascular Disease
DX: I48.0 Paroxysmal atrial fibrillation (principal)
CPT/HCPCS: 93246

== ENCOUNTER → 2024-10-08 15:30 | Outpatient (REF) | payer OTHER, SELFPAY ==
--- OUTSIDE RECORDS SUMMARY | 2024-10-08 16:54 | XMS_ITS | Clinical Summary ---
Author Organization [facility] Address [address] [place] [address] Phone Care Team Providers Care Communications Officer Name Role Phone Cameron Smith MD Primary Care Provider [phone] Allergies Active Allergy Reactions Criticality Noted Date [...] of + 3-dose series) 1993 COVID-19 Vaccine ( - season) 2024 12/31/2020, 05/18/2020, 04/27/2020 Cholesterol Screening (Lipid Panel) 04/19/2024 Colorectal Cancer Screening: Colonoscopy 04/19/2024 Depression Screening 04/19/2024 HIV Screening 04/19/2024 Hepatitis C Screening 04/19/2024 Social Influencers of Health Screening 04/19/2024 Pneumococcal Vaccine: 50+ Years (1 of 1 - PCV) 2024 Zoster Vaccines (1 of 2) 2024 DTaP,Tdap,and Td Vaccines (2 - Td or [...] to complete this topic Insurance Care Teams Communications Officer Relationship Specialty Start Date End Date Cameron Smith MD [address] [place] [address] PCP - General Internal Medicine 05/10/24
== END ==
LOC: HO.SL 15:30
PROVIDERS: PCP Internal Medicine; Visit Provider Internal Medicine Cardiovascular Disease
DX: G47.33 Obstructive sleep apnea (adult) (pediatric) (principal); I48.0 Paroxysmal atrial fibrillation; R40.0 Somnolence
CPT/HCPCS: 95806

== ENCOUNTER → 2024-10-08 15:37 | Outpatient (BNV) | payer OTHER, SELFPAY | PROVIDERS: PCP Internal Medicine; Visit Provider Internal Medicine | DX: G47.33 Obstructive sleep apnea (adult) (pediatric) (principal) | CPT/HCPCS: 95806 ==

== ENCOUNTER 2024-10-21 15:03 | Outpatient (AMB) | payer OTHER, SELFPAY ==
--- NOTE | 2024-10-21 15:15 | A.OFFVIS_ITS ---
Vital Signs 10/21/24 15:16 Height 6 ft 3 in Weight 231 lb 7.766 oz BMI 28.9 BP 120/70 Blood Pressure Location Lt brachial Position Sitting Pulse 52 Intake Visit Reasons: 3 mth f/up Intake Note: 3 month follow-up feeling good Laboratory Secretary Required: No Allergies No Known Allergies Allergy (Verified 07/10/24 15:34) Medication List - Last Reconciled 10/21/24 by Leon Narayan MD amlodipine 10 mg PO DAILY losartan 50 mg PO DAILY propranolol 10 mg PO DAILY HPI Comments Details: Xavier comes for follow-up. He is currently off flecainide as he said he could not tolerate the side effects. He still feels occasional fluttering in his chest but no prolonged atrial fibrillation episodes. He is also currently off oral anticoagulation therapy. He said he has been working out intensely and has had no side effects. Denies any exertional chest pain or shortness of breath. His blood pressures been well controlled on current medications. He is currently off his medicine for ADD. Denies any lightheadedness, syncope. [facility] Medical History Anxiety HTN (hypertension) ADD (attention deficit disorder) Essential tremor Paroxysmal atrial fibrillation Family History Mother New onset a-fib Social History Alcohol intake: never Patient Tobacco Use Status: Never used Tobacco Review of Systems Const Denies chills, Denies fatigue, Denies fever(s), Denies frequent falls, Denies weakness, Denies weight gain and Denies weight loss ENT Denies dizziness Card Denies chest pain, Denies leg edema, Denies lightheadedness, Denies pal pitations, Denies dyspnea, Denies dyspnea on exertion, Denies orthopnea and Denies other (loss of consciousness) Resp Denies cough, Denies dyspnea and Denies dyspnea on exertion GI Denies hematochezia and Denies change in stool character Musc Denies abnormal gait, Denies muscle weakness, Denies numbness, Denies radiating pain into limb and Denies tingling Neuro Denies abnormal gait, Denies dizziness, Denies frequent falls, Denies numbness, Denies tingling and Denies weakness Endo Denies fatigue and Denies palpitations Physical Exam Vital Signs: Last Vital Signs Pulse 52 10/21/24 15:16 BP 120/70 10/21/24 15:16 BMI result Body Mass Index 28.9 Const General: cooperative, comfortable, no acute distress, well developed, alert, awake, Physically active and anxious Nutritional Appearance: average body habitus and well nourished Orientation/consciousness: patient oriented x3 Limitations: no limitations HEENT Head: Yes normocephalic and Yes atraumatic Neck Neck: Yes trachea midline, Yes supple and No no JVD Carotids: no bruits Resp Effort & Inspection: normal respiratory effort Auscultation: clear to auscultation bilaterally Cardio Jugular venous distension: no JVD Palpation: normal PMI Rate: regular rate Rhythm: regular rhythm Heart sounds: S1 normal heart sound present, S2 normal heart sound present, no click, no gallops, no murmurs and no rubs GI Auscultation: normal bowel sounds Skin General skin exam: no rashes or lesions noted Neuro General: patient oriented x3 and no focal motor deficits Extrem General: Yes no clubbing, cyanosis or edema Psych Appearance: grossly normal Affect: Anxious affect present Office Procedures EKG Details: EKG shows normal sinus bradycardia at 50 beats per minute with right bundle- branch block with leftward axis [id number], Complete Assessment & Plan Assessment & Plan (1) Paroxysmal atrial fibrillation: Code(s): I48.0 - Paroxysmal atrial fibrillation Category: Medical Plan: Highly symptomatic paroxysmal atrial fibrillation with much improved symptoms with rhythm control approach will continue pursue rhythm control approach. Continues to have intermittent episodes of palpitation most consistent with PACs. His burden of PACs is not high. We discussed about management. He could not tolerate flecainide therapy. He is currently interested in pursuing rhythm control with ablation. Will like to evaluate options. Discussed with him the risks and benefits and he understands.CHADVASc score of 1. He is currently on oral anticoagulation therapy. Will prescribe him Eliquis to be taken pill in the pocket when he has another episode of atrial fibrillation. If he develops atrial fibrillation again he can take pill in the pocket approach with flecainide as well. Continue propranolol in that setting. Continue aggressive blood pressure control, see below. Avoidance of stimulants was discussed. (2) HTN (hypertension): Code(s): I10 - Essential (primary) hypertension Category: Medical Plan: Hypertension which is currently well optimized with amlodipine and losartan therapy. Continue the same. Importance of good blood pressure control was discussed. Low-salt diet was discussed. (3) Sinus bradycardia: Code(s): R00.1 - Bradycardia, unspecified Category: Medical Plan: Sinus bradycardia most likely physiologic related to excellent aerobic conditioning as well as on propranolol therapy. Having no side effects related to it. No pacing therapy indicated. Will follow up in the clinic in 6 months time, sooner p.r.n.. Thank you for allowing me to partake in his care Coding Level of Care Code Est Pt Level 4 (68222) Complex EM visit Add On G2211 Diagnoses Paroxysmal atrial fibrillation I48.0 HTN (hypertension) I10 Sinus bradycardia R00.1 CPT Codes EKG - CPT: 03113-[id number], Complete ([id number])
[2024-10-21 15:16] VITALS: BP 120/70; PULSE 52; BMI 28.9
== END 2024-10-21 15:45 | disposition home or self-care (01) ==
LOC: HO.HCS 15:03
PROVIDERS: PCP Internal Medicine; Visit Provider Internal Medicine Cardiovascular Disease
DX: I48.0 Paroxysmal atrial fibrillation (principal); I10 Essential (primary) hypertension; R00.1 Bradycardia, unspecified
CPT/HCPCS: 93010; 99214; G2211

== ENCOUNTER → 2024-10-21 15:03 | Outpatient (BNVA) | payer OTHER, SELFPAY | PROVIDERS: PCP Internal Medicine; Visit Provider Internal Medicine Cardiovascular Disease | DX: I48.0 Paroxysmal atrial fibrillation (principal) | CPT/HCPCS: 93005 ==

== ENCOUNTER 2024-11-14 12:52 | Outpatient (AMB) | payer OTHER, SELFPAY ==
--- OUTSIDE RECORDS SUMMARY | 2001-11-15 09:30 | XMS_ITS | Continuity of Care Document ---
Author Organization [facility] Address [address] [place] [phone] Phone Care Team Providers Care Ad Compositor Name Role Phone Anoop CARRINGTON, Sal[place] Unavailable Unavailable Advance Directives Directive Yes / No Effective Date File Name No Information Encounters Encounter Description Practice Location Reason(s) For Visit Diagnoses Date Provider Providers Copied on Encounter [facility], [address] [place] [address], [id number], tel:[phone] [facility] 710 No Information Anoop Niño. [address] [place] [address], [id number], [place]. tel:[phone] Referring Provider: Salinas Reed, [address] [place] [address], [id number]. tel:[phone] Family History Family Member Type Diagnosis Age At Onset No Information Payers Payer name Insurance type Covered republican ID Authoriza tion(s) No Information Social History [...]
--- NOTE | 2024-11-14 12:52 | MHC.OFFVIS ---
Vital Signs 11/14/24 12:55 Height 6 ft 3 in Intake Visit Reasons: INP-LU Intake Note: patient referred inhouse by Dr. Narayan for LU Allergies No Known Allergies Allergy (Verified 11/14/24 12:54) Medication List - Last Reconciled 11/14/24 by Elena Maldonado MD amlodipine 10 mg PO DAILY apixaban (Eliquis) 5 mg PO BID losartan 50 mg PO DAILY propranolol 10 mg PO DAILY HPI Comments Details: 49y/o calls for sleep evaluation . Main complaints-new onset Atrial fibrillation Sleep questionnaire- Difficulty falling asleep-yes- back pain Difficulty staying asleep-yes Number of azfheavo-[id number] Snoring-yes Witnessed apneas-no Gasping arousals-no Nocturia-yes GERD-yes Vivid dreams-no- always dreamed a lot Acting out dreams -no Abnormal behavior in sleep-no ABnormal movements in sleep-no Morning headaches- Excessive daytime sleepiness-yes- fatigue 6-7 mths ago has been on concerta but stopped after atrial fib Daytime naps- no restless legs- no Hallucinations- no sleep paralysis- no Drop attacks- no Sleep study-yes Results AHI 16 O2 CPAP no Sleep Hygiene- Sleep time-10pm Wake time -6am coffee/stimulant use-2-5 cups-stops after 2pm Phone Electronics use-uses his laptop Exercise-cardio 30min - Bedroom comfort- few hrs PFSH Medical History Anxiety HTN (hypertension) ADD (attention deficit disorder) Essential tremor Paroxysmal atrial fibrillation Family History Mother New onset a-fib Social History Alcohol intake: never Patient Tobacco Use Status: Never used Tobacco Physical Exam Const General: cooperative Orientation/consciousness: patient oriented x3 Neuro General: patient oriented x3 Telehealth Telehealth Telehealth Platform: Telephone Location of provider rendering services: practice address Location of patient: address on file Patient Identification confirmed using: Name, : Yes Telehealth method: voice only Patient verbally consented to treatment: Yes Patient verbally consented to billing insurance company: Yes Patient informed of any privacy concerns related to visit: Yes Minutes spent on Phone/Video with Pt.: 22 Assessment & Plan Assessment & Plan (1) Obstructive sleep apnea: Comment: HST on 10/2024 AHI 16 Supine AHI 22 O2 tracy 81 % Code(s): G47.33 - Obstructive sleep apnea (adult) (pediatric) Category: Medical Plan Start patient on AUtoPAP 5-20 cm of water and follow up to ensure compliance and therapy response. He is interested in trying oral device I will refer [facility] to [facility]. Orders: Referrals Dentistry Referral G47.33 - Obstructive sleep apnea (adult) (pediatric) Coding Level of Care Code Tele New Pt Level 3 (74907) Diagnoses Obstructive sleep apnea G47.33
--- OUTSIDE RECORDS SUMMARY | 2024-11-14 12:58 | XMS_ITS | Clinical Summary ---
Author Organization [facility] Address [address] [place] [address] Care Team Providers Care Utility Repairer Name Role Phone Leon Narayan Anne Primary Care Provider [phone] Allergies Active Allergy Reactions Criticality Noted Date Comments Pavel Inhibitors Hives Medium 11/13/2024 Medications amLODIPine (NORVASC) 10 MG tablet Take 1 tablet (10 mg total) by mouth daily. Active losartan (COZAAR) 50 MG tablet Take 1 tablet (50 mg total) by mouth daily. Active propranolol (INDERAL) 20 MG tablet Take 0.5 tablets (10 mg total) by mouth. Active Multiple Vitamins-Minera ls (multivitamin with minerals) tablet Take 1 tablet by mouth daily. Active Active Problems No known active problems Encounters Date Type Department Care Team Description 11/13/2024 12:00 PM EDT Consult [facility] Electrophysiology [address] [address] Shine Burch MD PAF (paroxysmal atrial fibrillation) (HCC) (Primary Dx); Bradycardia 11/13/2024 Scanned Document [facility] Heart & Vascular [facility] - Electrophysiology [address] [place] [address] Shine Burch MD 11/13/2024 Travel 11/05/2024 Orders Only [facility] Vascular [facility] - Electrophysiology [address] [place] [address] Zac Saldaña MD 10/25/2024 Scanned Document [facility] [address] [facility] [address] [place] [address] Fozia Saldaña 10/25/2024 Scanned Document [facility] [address] [facility] [address] [place] [id number] Cardiology, Scan 10/25/2024 Transcribe Orders [facility] Heart & Vascular [place] - Electrophysiology [address] [place] [address] Shine Burch MD PAF (paroxysmal atrial fibrillation) (HCC) (Primary Dx); Bradycardia from Last 3 Months Family History Medical History Relation Name Comments Arrhythmia Father Arrhythmia Mother Relation Name Status Comments Father Mother Social History Tobacco Use Types Packs/Day Years Used Date Smoking Tobacco: Never Smokeless Tobacco: Never Alcohol Use Standard Drinks/Week Comments Yes 1 (1 standard drink = 0.6 oz pur e alcohol) Sex and Gender Information Value Date Recorded Sex Assigned at Male 10/25/2024 3:35 PM EDT Legal Sex Male 1:47 PM EDT Gender Identity Male 10/25/2024 3:35 PM EDT Sexual Orientation Heterosexual (straight) 10/25 3:35 PM EDT Last Filed Vital Signs Vital Sign Reading Time Taken Comments Blood Pressure 132/74 11/13/2024 11:59 AM EDT Pulse 41 11/13/2024 11:59 AM EDT Temperature - - Respiratory Rate - - Oxygen Saturation 99% 11/13/2024 11:59 AM EDT Inhaled Oxygen Concentration - - Weight 102 kg (225 lb) 11/13/2024 11:59 AM EDT Height 190.5 cm (6' 3 ) 11/13/2024 11:59 AM EDT Body Mass Index 28.12 11/13/2024 11:59 AM EDT Plan of Treatment Health Maintenance Due Date Last Done Comments Hepatitis C Virus Screening 1975 HIV Screening 09/09/1987 DTaP/Tdap/Td Vaccines (1 - Tdap) 1993 Hepatitis B Vaccines (1 of 3 - 19+ 3-dose series) 1993 Colonoscopy 09/09/2019 COVID-19 Vaccine ( - 2023-2 5 season) 2024 12/31/2020, 05/18/2020, 04/27/2020 Pneumococcal Vaccines 50+ (1 of 1 - PCV) 2024 Zoster (Shingles) Vaccine (1 of 2) 2024 Influenza Vaccine 12/06/2024 03/04/2024, , 03/24/2023, Additional history exists Procedures Procedure Name Priority Date/Time Associated Diagnosis Comments ECG 12-LEAD Routine 11/13/2024 12:01 PM EDT PAF (paroxysmal atrial fibrillation) (HCC) Bradycardia [facility]OL[facility] MONITOR REPORT 10/25/2024 1:53 PM EDT ECG 12-LEAD 10/25/2024 1:52 PM EDT from Last 3 Months Results * ECG 12 lead (11/13/2024 12:01 PM EDT) Only the most recent of2 resultswithin the time period is included. Ventricular rate 41 BPM EKG [facility] Atrial rate 41 BPM EKG [facility] P-R interval 176 ms EKG [facility] QRS duration 110 ms EKG [facility] Q-T interval 454 ms [facility] QTC calculation (Bazett) 374 ms EKG [facility] P axis 41 degrees EKG [facility] R axis -24 degrees EKG [facility] T axis 15 degrees [facility] 11/13/2024 12:0 1 PM EDT [facility] 11/13[facility] 1:05 PM EDT Marked sinus bradycardia Incomplete right bundle branch block Abnormal ECG No previous ECGs available Confirmed by MD Burch Aneesh ([id number]) on 11/13/2024 1:05:07 PM Procedure Note Shine Burch MD - 11/13/2024 Marked sinus bradycardia Incomplete right bundle branch block Abnormal ECG No previous ECGs available Confirmed by MD Burch Aneesh ([id number]) on 11/13/2024 1:05:07 PM us Shine Burch MD ECG ORDERABLES Final Result [facility] * [facility]OL[facility] MONITOR REPORT (10/25/2024 1:53 PM EDT) Anatomical Region Laterality Modality Other Narrative 10/25/2024 1:53 PM EDT Ordered by an unspecified provider. us Generic Provider HX AMB PROCEDURES Final Result from Last 3 Months Insurance [facility] Care Teams Utility Repairer Relationship Specialty Start Date End Date Leon Narayan [address] [place] [address] [address] [place] [address] PCP - General 10/25/24
--- OUTSIDE RECORDS SUMMARY | 2024-11-14 12:58 | XMS_ITS | Clinical Summary ---
Author Organization [facility] Address [address] [place] [address] Care Team Providers Care Burlap Worker Name Role Phone Cameron Smith Unavailable Unavailable Cameron Smith Primary Care Provider Unavailabl e Allergies Active [...] noon and 20 mg before bedtime. Active Active Problems No known active problems Social History Tobacco Use Types Packs/Day Years [...] 73 07/07/2024 3:30 AM EST Temperature 35.9 C (96.6 F) 07/07/2024 12:44 AM EST Respiratory Rate 24 07/07/2024 3:30 AM EST [...] Tdap) 09/12/2022 09/11/2022 COVID-19 Vaccine (4 - season) 2024 12/31/2020, 05/18/2020, 04/27/2020 Pneumococcal Vaccine, 50+ Years (1 of 1 - PCV) 2024 Zoster Vaccines (1 of 2) 2024 Influenza Vaccine (#1) 2025 , 03/24/2023, 03/24/2023, Additional history exists Colonoscopy 05/22/2033 05/22/2023 Colorectal Cancer Screening 05/22/2033 HPV Vaccines Aged Out No longer eligi [...] this topic Insurance [employer] Care Teams Burlap Worker Relationship Specialty Start Date End Date Cameron Smith PCP - Insurance Payer PCP 3/2/25 Cameron Smith PCP - General Internal Medicine 07/07/24
--- OUTSIDE RECORDS SUMMARY | 2024-11-14 12:58 | XMS_ITS ---
Author Name [facility] Organization Unknown Results Test Name/Text Value Interpretation Date Range Source TROPONIN I, HIGH SENSITIVITY <3.0 ng/L Normal 07/07/2024 - [facility] THYROID STIM HORMONE 2.27 uIU/mL Normal 07/07/2024 0.35 - 4.94 [facility] TROPONIN I, HIGH SENSITIVITY <3.0 ng/L Normal 07/07/2024 - [facility] MAGNESIUM 1.9 mg/dL Normal 07/07/2024 1.8 - 3 [facility] POTASSIUM 3.9 mmol/L Normal 07/07/2024 3.6 - 5.1 [facility] BICARBONATE 21.0 mmol/L Below low normal 07/07/2024 23 - 32 [facility] GLOMERULAR FILTRATION RATE ML/MIN/1.73 SQ M.PREDICTED 108.0 mL/min/1.73m*2 Normal 07/07/2024 60 - [facility] ANION GAP 13.0 mmol/L Above high normal 07/07/2024 3 - 11 [facility] CREATININE 0.8 mg/dL Normal 07/07/2024 0.6 - 1.2 [facility] CALCIUM, TOTAL 9.9 mg/dL Normal 07/07/2024 8.4 - 10.2 [facility] GLUCOSE 106.0 mg/dL Normal 07/07/2024 70 - 200 [facility] CHLORIDE 106.0 mmol/L Normal 07/07/2024 100 - 111 [facility] UREA NITROGEN 16.0 mg/dL Normal 07/07/2024 8 - 24 [facility] HS SODIUM 140.0 mmol/L Normal 07/07/2024 137 - 144 [facility] WHITE CELL COUNT 8.9 10*3/uL Normal 07/07/2024 3.8 - 10.6 [facility] HEMOGLOBIN 15.2 g/dL Normal 07/07/2024 13 - 18 [facility] PLATELET COUNT 247.0 10*3/uL Normal 07/07/2024 150 - 440 [facility] MCH 28.2 pg Normal 07/07/2024 26 - [address] [facility] [address] 3.7 10*3/uL Normal 07/07/2024 0.7 - 4.5 [facility] MCHC 33.6 g/dL Normal 07/07/2024 32 - [address] [facility] [address] 0.1 10*3/uL Normal 07/07/2024 0 - 0. 2 [facility] MCV 84.0 fL Normal 07/07/2024 80 - [address] [facility] [address] 3.8 10*3/uL Normal 07/07/2024 1.4 - 6.3 [facility] BASOPHILS % 0.8 % Normal 07/07/2024 0 - [address] [facility] [address] 1.1 10*3/uL Above high normal 07/08/19 25 0.2 - 0.8 [facility] NEUTROPHIL % 42.7 % Normal 07/07/2024 40 - 70 [facility] AUTO NRBC % 0.0 % Normal 07/07/2024 0 - 0 [facility] HEMATOCRIT 45.3 % Normal 07/07/2024 40 - 52 [facility] RED CELL COUNT 5.39 10*6/ L Normal 07/07/2024 4.4 - 5.9 [facility] RBC DISTRIBUTION WIDTH 13.2 % Normal 07/07/2024 11.6 - 14.8 [facility] EOSINOPHIL % 2.3 % Normal 07/07/2024 0 - [address] [facility] [address] 0.2 10*3/uL Normal 07/07/2024 0 - 0.3 [facility] MONOCYTE % 12.0 % Normal 07/07/2024 4 - 12 [facility] IMMATURE GRANULOCYTE % 0.1 % Normal 07/07/2024 0 - 0. 6 [facility] LYMPHOCYTE % 42.1 % Normal 07/07/2024 20 - 50 [facility] Problems Problem Status Onset Date Problem Type Date of Resoluti on Source PAF (paroxysmal atrial fibrillation) ([facility]) active EncounterDiagnosisAct [facility] Bradycardia active EncounterDiagnosisAct [facility] Encounters Encounter Type Encounter Reason Primary Diagnosis Location Date Ambulatory Paroxysmal atrial fibrillation Paroxysmal atrial fibrillation [facility] 11/13/2024 Emergency Unspecified atrial fibrillation Unspecified atrial fibrillation [facility] 07/07/2024 Emergency Laceration witho ut foreign body of right hand, initial encounter [facility] 09/11/2022 Care Team Organization Name Specialty Phone Email Start Date End Da te [facility] [place] [facility] Primary Care 11/13/2024 [facility] 10/25/2024 [facility] [place] [facility] Primary Care 10/25/2024 [facility] Primary Care [facility] 07/07/2024 [facility] 09/12/2022 [facility] 09/11/2022 0511/2022
--- OUTSIDE RECORDS SUMMARY | 2024-11-14 12:58 | XMS_ITS | Clinical Summary ---
Author Organization [address] [facility] Address [address] [place] [address] Phone Care Team Providers Care Electric Motor Tester Assembler Name Role Phone Caemron Smith MD Primary Care Provider [phone] Allergies Active Allergy Reactions Criticality Noted Date [...] 2024 Influenza Vaccine (#1) 2025 , 03/24/2023, 03/14/2022, Additional history exists DTaP,Tdap,and Td Vaccines (2 - Td or Tdap) 09/11/2032 09/11/2022 HIB Vaccines Aged Out No [...] to complete this topic Insurance Care Teams Electric Motor Tester Assembler Relationship Specialty Start Date End Date Cameron Smith MD [address] [place] [id number] PCP - General Internal Medicine 05/10/24
--- OUTSIDE RECORDS SUMMARY | 2024-11-14 12:59 | XMS_ITS | Clinical Summary ---
Author Organization [facility] Address [address] [place] [address] Care Team Providers Care Welder Tech Name Role Phone Pcp, No Primary Care [...] 63 09/11/2022 7:48 PM EDT Temperature 36.3 C (97.4 F) 09/11/2022 7:48 PM EDT Respiratory Rate 18 09/11/2022 7:48 PM EDT [...] 1975 Annual Physical Exam 1992 COVID-19 Vaccine (4 - 2023-2 5 season) 2024 12/31/2020, 05/18/2020, 04/27/2020 Pneumococcal Vaccine: 50+ Years (1 of 1 - PCV) 2024 Zoster Vaccines (1 of 2) 2024 Influenza Vaccine (#1) 2025 2, 04/02/2021, 04/08/2020 Tdap and Td Vaccines [...] this topic Insurance [employer] Care Teams Welder Tech Relationship Specialty Start Date End Date Pcp, [place] [address] PCP - General 09/11/22
== END 2024-11-14 13:59 | disposition home or self-care (01) ==
LOC: HO.HSMS 12:53
PROVIDERS: PCP Internal Medicine; Visit Provider Psychiatry & Neurology Neurology
DX: G47.33 Obstructive sleep apnea (adult) (pediatric) (principal)
CPT/HCPCS: 99203

== ENCOUNTER → 2024-12-04 20:30 | Outpatient (REF) | payer OTHER, SELFPAY ==
--- OUTSIDE RECORDS SUMMARY | 2001-11-15 09:30 | XMS_ITS | Continuity of Care Document ---
Author Organization [facility] Address [address] [place] [phone] Phone Care Team Providers Care Manager Of Project Management Name Role Phone Anoop CARRINGTON, Sal[place] Unavailable Unavailable Advance Directives Directive Yes / No Effective Date File Name No Information Encounters Encounter Description Practice Location Reason(s) For Visit Diagnoses Date Provider Providers Copied on Encounter [facility], [address] [place] [address], [id number], tel:[phone] [facility] 710 No Information Anoop Niño. [address] [place] [address], [id number], [place]. tel:[phone] Referring Provider: Sal[place] Reed, [address] [place] [address], [id number]. tel:[phone] Family History Family Member Type Diagnosis Age At Onset No Information Payers Payer name Insurance type Covered green party ID Authoriza tion(s) No Information Social [...]
--- OUTSIDE RECORDS SUMMARY | 2024-12-04 21:01 | XMS_ITS | Clinical Summary ---
Author Organization [facility] Address [address] [place] [address] Care Team Providers Care Wet End Helper Name Role Phone Pcp, No Primary Care [...] age to complete this topic HPV Vaccines (No Doses Required) Completed Hepatitis A Vaccines Aged Out No long [...] to complete this topic Insurance [employer] [address] [place], [place] [id number] Care Teams Wet End Helper Relationship Specialty Start Date End Date Pcp, [place] [address] PCP - General 09/11/22
--- OUTSIDE RECORDS SUMMARY | 2024-12-04 21:01 | XMS_ITS | Clinical Summary ---
Author Organization [facility] Address [address] [place] [address] Care Team Providers Care Mold Stripper Name Role Phone Leon Narayan Anne Primary Care Provider [phone] Allergies Active Allergy Reactions Criticality Noted Date [...] Team Description 11/13/2024 12:00 PM EDT Consult [facility] Electrophysiology [address] [address] Shine Burch MD PAF (paroxysmal atrial fibrillation) (HCC) (Primary Dx); Bradycardia 11/13/2024 Scanned Document [facility] Heart & Vascular [facility] - Electrophysiology [address] [place] [address] Shine Burch MD 11/13/2024 Travel 11/05/2024 Orders Only [facility] Vascular [facility] - Electrophysiology [address] [place] [address] Zac Saldaña MD 10/25/2024 Scanned Document [facility] 80 [facility] [address] [place] [address] Fozia Saldaña 10/25/2024 Scanned Document [facility] 80 [facility] [address] [place] [address] Cardiology, Scan 10/25/2024 Transcribe Orders [facility] Vascular [facility] - Electrophysiology [address] [place] [address] Shine Burch MD PAF (paroxysmal [...] 11/13/2024 11:59 AM EDT Plan of Treatment Upcoming Encounters Date Type Department Care Team (Latest Contact Info) Description 03/10/2025 3:00 PM EST Office Visit [facility] Heart Vascular [facility] - Electrophysiology [address] [place] [address] Shine Burch MD [address] [place] [address] 03/21/2025 7:30 AM EST Hospital Encounter [facility] Heart & Vascular [place] [facility] - Electrophysiology Laboratory [address] [place] [address] Shine Burch MD [address] [place] [address] 03/21/2025 7:30 AM EST - 03/21/2025 10:15 AM EST Surgery [facility] Heart & Vascular [place] [facility] - Electrophysiology Laboratory [address] [place] [phone] Shine Burch MD [address] [place], [place] [phone] Atrial fibrillation ablation; [address] Health Maintenance Due Date Last Done Comments Hepatitis C Virus Screening 1974 HIV Screening 09/09/1987 DTaP/Tdap/Td Vaccines (1 - Tdap) 1993 Hepatitis B Vaccines (1 of 3 - 19+ 3-dose series) 1993 Colonoscopy 09/09/2019 COVID-19 Vaccine (4 - 2023-2 5 season) 2024 12/31/2020, 05/18/2020, 04/27/2020 Pneumococcal Vaccines 50+ (1 of 1 - PCV) 2024 Zoster (Shingles) Vaccine (1 of 2) 2024 Influenza Vaccine 12/06/2024 03/04/2024, , 03/24/2023, Additional history exists Goals Goal Patient Goal Type Associated Problems Recent Progress Patient-Stated? Author Autogenerat ed Goal Care Plan Autogenerated Problem No Maci, Deena Procedures Procedure Name Priority Date/Time Associated Diagnosis Comments ECG 12-LEAD Routine 11/13/2024 12:01 PM EDT PAF (paroxysmal atrial fibrillation) (HCC) Bradycardia HOLTER MONITOR REPORT 10/25/2024 1:53 PM EDT ECG 12-LEAD 10/25/2024 1:52 PM EDT from Last 3 Months Results * ECG 12 lead (11/13/2024 12:01 PM EDT) Only the most recent of2 resultswithin the time period is included. Ventricular rate 41 BPM EKG [facility] Atrial rate 41 BPM EKG [facility] P-R interval 176 ms EKG [facility] QRS duration 110 ms EKG [facility] Q-T interval 454 ms EKG [facility] QTC calculation (Bazett) 374 ms EKG [facility] P axis 41 degrees EKG [facility] R axis -24 degrees EKG [facility] T axis 15 degrees EKG [facility] 11/13/2024 12:0 1 PM EDT Narrative EKG [facility] - 11/13/2024 1:05 PM EDT Marked sinus bradycardia Incomplete right bundle branch block Abnormal ECG No previous ECGs available Confirmed by MD Burch Aneesh ([id number]) on 11/13/2024 1:05:07 PM Procedure Note Shine Burch MD - 11/13/2024 Marked sinus bradycardia Incomplete right bundle branch block Abnormal ECG No previous ECGs available Confirmed by MD Burch Aneesh ([id number]) on 11/13/2024 1:05:07 PM us Shine Burch MD ECG ORDERABLES Final Result [facility] * HOLTER MONITOR REPORT (10/25/2024 1:53 PM EDT) Anatomical Region Laterality Modality Other Narrative 10/25/2024 1:53 PM EDT Ordered by an unspecified provider. us Generic Provider HX AMB PROCEDURES Final Result from Last 3 Months Additional Health Concerns Active Problems Noted Date Diagnosed Date Autogenerated Problem 12/02/2024 Insurance [facility] Care Teams Mold Stripper Relationship Specialty Start Date End Date Leon Narayan [address] [place] [address] [address] [place] [address] PCP - General 10/25/24
--- OUTSIDE RECORDS SUMMARY | 2024-12-04 21:01 | XMS_ITS | Encounter Summary ---
Author Organization [facility] Address [address] [address] Phone Care Team Providers Care Director Of Investigations Name Role Phone Cameron Smith MD Primary Care Provider [phone] Encounter Details Date Type Department Care Team (Late st Contact Info) Description 05/22/2023 Procedure Pass [facility] Endoscopy Admitting Dept Virtual Department [address] [place] [address] Social History Tobacco Use Types Packs/Day Years Used Date Smoking Tobacco: Never Smokeless Tobacco: Never Alcohol Use Standard Drinks/Week Comments Yes 0 (1 standard drink = 0.6 oz pur e alcohol) 2 DRINK WEEKLY Education Answer Date Recorded Are you interested in more education? Not on fay e 09/02/2022 Are you concerned about learning? Not on file 09/02/2022 No 09/02/2022 No 09/02/2022 Digital Access Answer Date Recorded No 10/03/2022 No 10/03/2022 Reliable internet access at home? Not on file 10/03/2022 Device with a working camera? Not on file Intimate Partner Violence Answer Date R ecorded Are you denied basic needs s uch as food, clothing, or medical care? No 05/22/2023 In the past 12 months have y ou been in a relationship with a person who hurts, threatens, or tries to control you? No 05/22/2023 Are you denied basic needs s uch as food, clothing, or medical care? No 05/22/2023 In the past 12 months have y ou been in a relationship with a person who hurts, threatens, or tries to control you? No 05/22/2023 Sex and Gender Information Value Date Recorded Sex Assigned at Not on file Legal Sex Male 2:38 PM EDT Gender Identity Not on file Sexual Orientation Not on file documented as of this encounter Plan of Treatment Not on file documented as of this encounter Visit Diagnoses Not on filedocumented in this encounter Care Teams Director Of Investigations Relationship Specialty Start Date End Date Cameron Smith MD PCP - General Internal Medicine 04/25/23 documented as of this encounter Additional Source Comments The information contained in this document represents components of the legal health record. It is not the complete legal health record.[facility]
--- OUTSIDE RECORDS SUMMARY | 2024-12-04 21:01 | XMS_ITS | Clinical Summary ---
Author Organization [facility] Address [address] [place] [address] Care Team Providers Care Mail Sorter Name Role Phone Cameron Smith Unavailable Unavailable [...] this topic Insurance [employer] Care Teams Mail Sorter Relationship Specialty Start Date End Date Cameron Smith PCP - Insurance Payer PCP 3/2/25 Cameron Smith PCP - General Internal Medicine 07/07/24
--- OUTSIDE RECORDS SUMMARY | 2024-12-04 21:01 | XMS_ITS | Clinical Summary ---
Author Organization [facility] Address [address] [place] [address] Phone Care Team Providers Care Rugby League Footballer Name Role Phone Cameron Smith MD Primary Care Provider [phone] Allergies Active Allergy Reactions Criticality Noted Date [...] Panel) 04/19/2024 Colorectal Cancer Screening: Colonoscopy 04/19/2024 HIV Screening 04/19/2024 Hepatitis C Screening 04/19/2024 Social Influencers of Health Screening 04/19/2024 Depression Screening 05/08/2024 Pneumococcal Vaccine: 50+ Years (1 of 1 [...] to complete this topic Insurance Care Teams Rugby League Footballer Relationship Specialty Start Date End Date Cameron Smith MD [address] [place] [id number] PCP - General Internal Medicine 05/10/24
== END ==
LOC: HO.SL 20:30
PROVIDERS: PCP Internal Medicine; Visit Provider Internal Medicine Cardiovascular Disease
DX: G47.33 Obstructive sleep apnea (adult) (pediatric) (principal); Z99.89 Dependence on other enabling machines and devices; Z79.899 Other long term (current) drug therapy
CPT/HCPCS: 95811

== ENCOUNTER → 2024-12-04 21:07 | Outpatient (BNV) | payer OTHER, SELFPAY | PROVIDERS: PCP Internal Medicine; Visit Provider Psychiatry & Neurology Neurology | DX: G47.33 Obstructive sleep apnea (adult) (pediatric) (principal) | CPT/HCPCS: 95811 ==

== ENCOUNTER 2025-03-19 07:22 | Outpatient (AMB) | payer OTHER, SELFPAY ==
--- OUTSIDE RECORDS SUMMARY | 2001-11-15 08:30 | XMS_ITS | Continuity of Care Document ---
Author Organization [facility] Address [address] [place] [phone] Phone Care Team Providers Care Gizzard Skin Remover Name Role Phone Anoop CARRINGTON, [place] Unavailable Unavailable Advance Directives Directive Yes / No Effective Date File Name No Information Encounters Encounter Description Practice Location Reason(s) For Visit Diagnoses Date Provider Providers Copied on Encounter [facility], [address] [place] [address], [id number], tel:[phone] [facility] 710 No Information Anoop Niño. [address] [place] [address], [id number], [place]. tel:[phone] Referring Provider: Sal[place] Reed, [address] [place] [address], [id number]. tel:[phone] Family History Family Member Type Diagnosis Age At Onset No Information Payers Payer name Insurance type Covered alliance party ID Authoriza tion(s) No Information Social History Type Description Quantity Date Captured Comments Sex Male Smoking Status No Information Chief Complaint And Reason For Visit No Information Reason For Referral Reason For Referral No Information History Of Present Illness Encounter Date Complaint History Of Prese nt Illness No Information Functional Status Date Functional Assessmen t No Information Instructions Date Instruction Additional Infor mation No Information Assessments Type Assessment Date No Information Patient Care Teams Name Effective Dates (start - stop) Status Members No Information
--- OUTSIDE RECORDS SUMMARY | 2025-03-19 07:24 | XMS_ITS | Clinical Summary ---
Author Organization [facility] Address [address] [place] [address] Care Team Providers Care Drug Room Operator Name Role Phone Helene Leon Anne Primary Care Provider [phone] Allergies Active Allergy Reactions Criticality Noted Date [...] Take 1 tablet by mouth daily. Active Cholecalciferol (VITAMIN D-3 PO) Take 1 capsule by mouth daily. Active apixaban (ELIQUIS) 5 MG tabletIndicatio ns:PAF (paroxysmal atrial fibrillation) ([facility]),Bradycard ia Take 1 tablet (5 mg total) by mouth 2 (two) times a day. 180 tablet 3 03/10/2025 Active Active Problems No known active problems Encounters Date Type Department Care Team Description 03/17/2025 Travel 03/14/2025 Documentation [facility] Heart & Vascular [facility] - Electrophysiology [address] [place] [address] Maria E Conway RN 03/10/2025 3:00 PM EST Office Visit [facility] Heart & Vascular [facility] - Electrophysiology [address] [place] [address] Shine Burch MD PAF (paroxysmal atrial fibrillation) (HCC) (Primary Dx); Bradycardia 03/10/2025 Travel from Last 3 Months Family History Medical History Relation Name Comments Arrhythmia Father Josh Lutz Hyperlipidemia Father Josh Lutz Hypertension Father Josh Lutz Melanoma Father Josh Lutz Heart attack Maternal Grandfather Alexander Merklas Heart disease Maternal Grandfather Alexander Merklas Hyperlipidemia Maternal Grandfather Alexander Merklas Lung cancer Maternal Grandfather Alexander Merklas Lung cancer Maternal Grandmother Adriana Merklas Arrhythmia Mother Parkinsonism Paternal Grandfather Jack Lutz Breast cancer Paternal Grandmother Zuleyma Buchanann COPD Paternal Grandmother Zuleyma Buchanann Dementia Paternal Uncle Johan Lutz Alzheimers Hypertension Sister Stacie Espinoza Relation Name Status Comments Father Josh Lutz Maternal Grandfather Alexander Merklas Alive Maternal Grandmother Adriana Merklas Alive Mother Paternal Grandfather Jack Lutz Alive Paternal Grandmother Zuleyma Lutz Alive Paternal Uncle Johan Lutz Alive Sister Stacie Espinoza Alive Social History Tobacco Use Types Packs/Day Years Used Date Smoking Tobacco: Never Smokeless Tobacco: Never Tobacco Cessation:Counseling Given: Not Answered Alcohol Use Standard Drinks/Week Comments Yes 2 (1 standard drink = 0.6 oz pur e alcohol) 1-2 x a week AUDIT-C Answer Date Recorded Q1: How often do you have a drink containing alc ohol? 2-4 times a month 03/17/2025 Q2: How many drinks containi ng alcohol do you have on a typical day when you are drinking? 1 or 2 03/17/2025 Q3: How often do you have si x or more drinks on one occasion? Never 03/17/2025 Sex and Gender Information Value Date Recorded Sex Assigned at Male 10/25/2024 3:35 PM EDT Legal Sex Male 1:47 PM EDT Gender Identity Male 10/25/2024 3:35 PM EDT Sexual Orientation Heterosexual (straight) 10/25 3:35 PM EDT Last Filed Vital Signs Vital Sign Reading Time Taken Comments Blood Pressure 122/74 03/10/2025 2:51 PM EST Pulse 50 03/10/2025 2:51 PM EST Temperature - - Respiratory Rate - - Oxygen Saturation 99% 11/13/2024 11:59 AM EDT Inhaled Oxygen Concentration - - Weight 102 kg (225 lb) 03/17/2025 12:32 PM EST Height 190.5 cm (6' 3 ) 03/17/2025 12:32 PM EST Body Mass Index 28.12 03/17/2025 12:32 PM EST Plan of Treatment Upcoming Encounters Date Type Department Care Team (Latest Contact Info) Description 03/21/2025 11:32 AM EST Hospital Encounter [facility] Heart & Vascular [place] [facility] - Electrophysiology Laboratory [address] [place] [phone] Shine Burch MD [address] [place], [place] [phone] 03/21/2025 11:32 AM EST - 03/21/2025 2:17 PM EST Surgery [facility] Heart & Vascular [place] [facility] - Electrophysiology Laboratory [address] [place] [address] Shine Burch MD [address] [place] [id number] Atrial fibrillation ablation; [id number] Health Maintenance Due Date Last Done Comments Hepatitis C Virus Screening 1974 HIV Screening 09/09/1987 DTaP/Tdap/Td Vaccines (1 - Tdap) 1993 Hepatitis B Vaccines (1 of 3 - 19+ 3-dose series) 1993 Colonoscopy 09/09/2019 Pneumococcal Vaccines 50+ (1 of 1 - PCV) 2024 RSV Vaccine 50 years and old er and Patients (1 - Risk 50-74 years 1-dose series) 2024 Zoster (Shingles) Vaccine (1 of 2) 2024 COVID-19 Vaccine (4 - 2024-2 6 season) 2025 12/31/2020, 05/18/2020, 04/27/2020 Influenza Vaccine Completed 03/01/2025, , 03/24/2023, Additional history exists Procedures Procedure Name Priority Date/Time Associated Diagnosis Comments ECG 12-LEAD Routine 03/10/2025 2:56 PM EST PAF (paroxysmal atrial fibrillation) (HCC) Bradycardia from Last 3 Months Results * ECG 12 lead (03/10/2025 2:56 PM EST) Ventricular rate 50 BPM EKG [facility] Atrial rate 50 BPM EKG [facility] P-R interval 160 ms EKG [facility] QRS duration 112 ms EKG [facility] Q-T interval 438 ms EKG [facility] QTC calculation (Bazett) 399 ms EKG [facility] P axis 15 degrees EKG [facility] R axis -31 degrees EKG [facility] T axis 14 degrees [facility] 03/10/2025 2:56 PM EST Narrative EKG [facility] - 03/10/2025 3:44 PM EST Sinus bradycardia Left axis deviation Incomplete right bundle branch block Abnormal ECG When compared with ECG of 13-Nov-2024 12:01, No significant change was found Confirmed by MD Burch Aneesh ([id number]) on 03/10/2025 3:44:53 PM Procedure Note Shine Burch MD - 03/10/2025 Sinus bradycardia Left axis deviation Incomplete right bundle branch block Abnormal ECG When compared with ECG of 13-Nov-2024 12:01, No significant change was found Confirmed by MD Burch Aneesh ([id number]) on 03/10/2025 3:44:53 PM Shine Burch MD ECG ORDERABLES Final Result [facility] from Last 3 Months Insurance [facility] Care Teams Drug Room Operator Relationship Specialty Start Date End Date Leon Narayan [address] [place] [address] [address] [place] [address] PCP - General 10/25/24
--- OUTSIDE RECORDS SUMMARY | 2025-03-19 07:24 | XMS_ITS | Encounter Summary ---
Author Organization [facility] Address [address] [place] [address] Care Team Providers Care Straddle Truck Driver Name Role Phone Helene Leon Anne Primary Care Provider [phone] Encounter Details Date Type Department Care Team (Latest Contact Info) Description 03/17/2025 Travel Social History Tobacco Use Types Packs/Day Years Used Date Smoking Tobacco: Never Smokeless Tobacco: Never Alcohol Use Standard Drinks/Week Comments Yes 2 [...] Orientation Heterosexual (straight) 10/25 3:35 PM EDT documented as of this encounter Functional Status * AUDIT-C Score Answer Date of Assessment Author 2 03/17/2025 12:32 PM Karolina Alex RN * Question Answer Date of Assessment Author AUDIT-C Total Score - Male 2 03/17/2025 12:32 PM Karolina Alex, LIZETH Q1: How often do you have a drink containing alcohol? 2-4 times a month 03/17/2025 12:32 PM Karolina Alex RN Q2: How many drinks containing alcohol do you have on a typical day when you are drinking? 1 or 2 03/17/2025 12:32 PM Karolina Alex RN Q3: How often do you have six or more drinks on one occasion? Never 03/17/2025 12:32 PM Karolina Alex RN documented as of this encounter Plan of Treatment Upcoming Encounters Date Type Department Care Team (Latest Contact Info) Description 03/21/2025 11:32 AM EST Hospital Encounter [facility] Heart & Vascular [place] [facility] - Electrophysiology Laboratory [address] [place] [address] Shine Burch MD [address] [place], [place] [phone] 03/21/2025 11:32 AM EST - 03/21/2025 2:17 PM EST Surgery [facility] Heart & Vascular [facility] - Electrophysiology Laboratory [address] [place] [address] Shine Burch MD [address] [place] [phone] Atrial fibrillation ablation; [address]0000 MACIEL-MDT-UPHOLSTERY REPAIRER documented as of this encounter Visit Diagnoses Not on filedocumented in this encounter Care Teams Straddle Truck Driver Relationship Specialty Start Date End Date Leon Narayan [address] [place] [address] 3rd [place] [address] PCP - General 10/25/24 documented as of this encounter
--- OUTSIDE RECORDS SUMMARY | 2025-03-19 07:24 | XMS_ITS | Encounter Summary ---
Author Organization [facility] Address [address] [place] [address] Care Team Providers Care Certified Nurse Name Role Phone Helene Leon Anne Primary Care Provider [phone] Encounter Details Date Type Department Care Team (Late st Contact Info) Description 11/13/2024 Scanned Document [facility] Heart & Vascular [place] - Electrophysiology [address] [place] [phone] Shine Burch MD [address] [place] [address] Social History Tobacco Use Types Packs/Day Years [...] PM EDT documented as of this encounter Plan of Treatment Upcoming Encounters Date Type Department Care Team (Latest Contact Info) Description 03/21/2025 11:32 AM EST Hospital Encounter [facility] Heart & Vascular [place] [facility] - Electrophysiology Laboratory [address] [place] [address] Shine Bruch MD [address] [place] [phone] 03/21/2025 11:32 AM EST - 03/21/2025 2:17 PM EST Surgery [facility] Heart & Vascular [place] [facility] - Electrophysiology Laboratory [address] [place] [address] Shine Burch MD [address] [place] [address] Atrial fibrillation ablation; [address] [facility]-MDT-AIR BRAKE MAN documented as of this encounter Visit Diagnoses Not on filedocumented in this encounter Care Teams Certified Nurse Relationship Specialty Start Date End Date Leon Narayan [address] [place] [address] 3rd [place] [address] PCP - General 10/25/24 documented as of this encounter
--- OUTSIDE RECORDS SUMMARY | 2025-03-19 07:24 | XMS_ITS | Encounter Summary ---
Author Organization [facility] Address [address] [address] Phone Care Team Providers Care Passenger Coach Driver Name Role Phone Caemron Smith MD Primary Care Provider [phone] Encounter Details Date Type Department Care Team (Late st Contact Info) Description 05/22/2023 Procedure Pass [facility] Endoscopy Admitting Dept Virtual Department [address] [place] [address] Social History Tobacco Use Types Packs/Day Years [...] on filedocumented in this encounter Care Teams Passenger Coach Driver Relationship Specialty Start Date End Date Cameron Smith MD [address] [place] [address] PCP - General Internal Medicine 04/25/23 documented as of this encounter Additional Source Comments The information contained in this document represents components of the legal health record. It is not the complete legal health record.[facility]
--- OUTSIDE RECORDS SUMMARY | 2025-03-19 07:24 | XMS_ITS | Clinical Summary ---
Author Organization Located Within [facility] Address [address] [id number] Phone Care Team Providers Care Imagery Analyst Name Role Phone Giovanni Campo MD Primary Care Provider [phone] Allergies Active Allergy Reactions Criticality Noted Date Comments Pavle Inhibitors Hives 05/22/2023 Medications amLODIPine (NORVASC) 10 MG tablet Take 10 mg by mouth daily. 03/24/2023 Active losartan (COZAAR) 50 MG tablet Take 50 mg by mouth daily. 03/24/2023 Active traZODone (DESYREL) 50 MG tablet Take 50 mg by mouth nightly at bedtime. 03/24/2023 Active Immunizations Immunization Administration Dates Next Due COVID-19 (Pre-02/27) Moderna Vaccine, mRNA, PF 12/31/2020,12/31/2020 COVID-19 (Pre-02/27) Pfizer Vaccine, mRNA, PF 05/18/2020,04/27/2020 Influenza Quadrivalent MDCK Preservative Free IM 03/24/2023 Influenza, Unspecified Formulation 03/14,04/02/2021,04/08/2020,2019 Social History Tobacco Use Types Packs/Day Years Used Date Smoking Tobacco: Never Smokeless Tobacco: Never Tobacco Cessation:Counseling Given: Not Answered Alcohol Use Standard Drinks/Week Comments Yes 0 [...] Sign Reading Time Taken Comments Blood Pressure 124/82 05/22/2023 12:55 PM EST Pulse 60 05/22/2023 12:55 PM EST Temperature 36.3 C (97.3 F) 05/22/2023 12:40 PM EST Respiratory Rate 14 05/22/2023 12:55 PM EST Oxygen Saturation 99% 05/22/2023 12:55 PM EST Inhaled Oxygen Concentration - - Weight 104.3 kg (230 lb) 05/22/2023 12:09 PM EST Height 190.5 cm (6' 3 ) 05/22/2023 12:09 PM EST Body Mass Index 28.75 05/22/2023 12:09 PM EST Plan of Treatment Health Maintenance Due Date Last Done Comments Adult Td,Tdap Booster 1975 CREATININE LEVEL 1974 LIPID PANEL 1974 POTASSIUM LEVEL 1974 DEPRESSION SCREENING 1986 HEPATITIS C SCREENING 1992 HIV ONE-TIME SCREENING (18-65 YEARS) 1992 SCREENING FOR DIABETES 2009 COLOGUARD 09/09/2019 FIT TEST 09/09/2019 FOBT 09/09/2019 SIGMOIDOSCOPY 09/09/2019 VIRTUAL COLONOSCOPY 09/09/2019 PNEUMOCOCCAL VACCINES (50+ years) (1 of 1 - PCV) 2024 ZOSTER VACCINES (1 of 2) 2024 INFLUENZA VACCINE (#1) 2024 , 03/14/2022, 04/02/2021, Additional history exists COVID-19 VACCINE ( - season) 2025 12/31/2020, 12/31/2020, 05/18/2020, Additional history exists COLONOSCOPY 05/22/2033 05/22/2023 COLORECTAL CANCER SCREENING 05/22/2033 RSV VACCINE (1 - 1-dose 75+ series) 2049 SMOKING STATUS SCREENING (Once After 26 Yrs) Completed 05/22/2023 HEPATITIS A VACCINES Aged Out No long er eligible based on patient's age to complete this topic HIB VACCINES Aged Out No longer eligi ble based on patient's age to complete this topic IPV VACCINES Aged Out No longer eligi ble based on patient's age to complete this topic MENINGOCOCCAL VACCINES (ACWY) Aged Out No longer eligible based on patient's age to complete this topic MENINGOCOCCAL VACCINES (B) Aged Out N o longer eligible based on patient's age to complete this topic Medical Devices Not on file Procedures Procedure Name Priority Date/Time Associated Diagnosis Comments ENDOSCOPY, COLON 05/22/2023 12:0 5 PM EST from Last 3 Months or Most Recently Relevant to Health Maintenance Results * ENDOSCOPY, COLON (05/22/2023 12:05 PM EST) Narrative Transcriptions Jake Crow MD - 05/22/2023 12:05 PM EST [facility] Patient Name: Jack Lutz Attending MD:: JAKE CROW MD, Procedure Date: 05/22/2023 12:05 PM Date of : 1975 Age: 47 Admit Type: Outpatient Gender: Male Room: [facility] Referring MD: GIOVANNI CAMPO Exam Type: Colonoscopy Indications: Screening for colorectal malignant neoplasm, Thisis the patient's first colonoscopy Medications: Monitored Anesthesia Care Procedure: Informed consent was obtained from the patientafter discussion of the indications, limitations, alternatives, benefits, and risks of the procedure. Risks specifically discussed include but are not limited to medication reactions, missed lesions, bleeding, perforation, or the need for emergent surgery. Throughout the procedure, the patient's blood pressure, pulse, end-tidal CO2, and oxygensaturations were monitored continuously. The Olympus pediatric variable colonoscopePCF-[id number] #4 was introduced through the anus and advanced tothe cecum, identified by the appendiceal orifice, ileocecal valve and palpation. The colonoscopy was performed without difficulty. The patient tolerated the procedure fairly well. The quality of the bowel preparation was good. The ileocecal valve,appendiceal orifice, and rectum were photographed. Complications: No immediate complications. Estimated blood loss:None. Findings: The perianal and digital rectal examinations were normal. Pertinent negatives include normalsphincter tone. A few small-mouthed diverticula were found in the sigmoid colon. Retroflexion in the right colon was performed. The exam was otherwise without abnormality ondirect and retroflexion views. Impression: - Diverticulosis in the sigmoid colon. - The examination was otherwise normal on directand retroflexion views. - No specimens collected. Recommendation: - Repeat colonoscopy in 10 years for screening purposes. - Continue present medications. JAKE CROW MD 05/22/2023 12:38:35 PM This report has been signed electronically. Number of Addenda: 0 Note Initiated On: 05/22/2023 12:05 PM Procedure Code(s): --- Professional --- 32686, Colonoscopy, flexible; diagnostic, including collection of specimen(s) by brushing or washing, when performed (separateprocedure) --- Technical --- 98769, Colonoscopy, flexible; diagnostic, including collection of specimen(s) by brushing or washing, when performed (separateprocedure) Diagnosis Code(s): --- Professional --- Z12.11, Encounter for screening for malignantneoplasm of colon K57.30, Diverticulosis of large intestine without perforation or abscess without bleeding --- Technical --- Z12.11, Encounter for screening for malignantneoplasm of colon K57.30, Diverticulosis of large intestine without perforation or abscess without bleeding CPT copyright 2021 [employer]. All rights reserved. The codes documented in this report are preliminary and upon surgical coder reviewmay be revised to meet current compliance requirements. Procedure Date: 05/22/2023 12:05:[address] [place], [place] [id number] Giovanni Campo MD GI PROCEDURE ORDERABLES F inal Result from Last 3 Months or Most Recently Relevant to Health Maintenance Insurance [facility] HMO Care Teams Imagery Analyst Relationship Specialty Start Date End Date Giovanni Campo MD [address] [place] [id number] PCP - General Internal Medicine 04/25/23 Additional Source Comments The information contained in this document represents components of the legal health record. It is not the complete legal health record.Located Within [facility]
--- OUTSIDE RECORDS SUMMARY | 2025-03-19 07:24 | XMS_ITS | Encounter Summary ---
Author Organization [facility] Address [address] [place] [address] Care Team Providers Care Grader Meat Name Role Phone Leon Narayan Anne Primary Care Provider [phone] Encounter Details Date Type Department Care Team (Late st Contact Info) Description 10/25/2024 Scanned Document [facility] 80 [facility] [address] [place] [phone] Cardiology, Scan Social History Tobacco Use Types Packs/Day Years [...] Description 03/21/2025 11:32 AM EST Hospital Encounter [facility] Heart & Vascular [place] at [facility] - Electrophysiology Laboratory [address] [place] [phone] Shine Burch MD [address] [place] [address] 03/21/2025 11:32 AM EST - 03/21/2025 2:17 PM EST Surgery [facility] Heart & Vascular [place] [facility] - Electrophysiology Laboratory [address] [place] [phone] Shine Burch MD [address] [place] [address] Atrial fibrillation ablation; [id number] PFA-T-ORCHARD HAND documented as of this encounter Procedures Procedure Name Priority Date/Time Associated Diagnosis Comments ECG 12-LEAD 10/25/2024 1:52 PM EDT documented in this encounter Results * ECG 12 lead (10/25/2024 1:52 PM EDT) us Scan Cardiology ECG ORDERABLES Final Result documented in this encounter Visit Diagnoses Not on filedocumented in this encounter Care Teams Grader Meat Relationship Specialty Start Date End Date Leon Narayan [address] [place] [address] 3rd [place] [address] PCP - General 10/25/24 documented as of this encounter
--- OUTSIDE RECORDS SUMMARY | 2025-03-19 07:24 | XMS_ITS | Clinical Summary ---
Author Organization [facility] Address [address] [place] [address] Care Team Providers Care Boat Builder Name Role Phone Pcp, No Primary Care [...] 1975 Sigmoidoscopy 1975 Annual Physical Exam 1992 Pneumococcal Vaccine: 50+ Years (1 of 1 - PCV) 2024 Zoster Vaccines (1 of 2) 2024 COVID-19 Vaccine (4 - 2024-2 6 season) 2025 12/31/2020, 05/18/2020, 04/27/2020 Influenza Vaccine (#1) 2025 2, 04/02/2021, 04/08/2020 [...] complete this topic Insurance [employer] [address] [place], [place] [id number] Care Teams Boat Builder Relationship Specialty Start Date End Date Pcp, [place] [address] PCP - General 09/11/22
--- OUTSIDE RECORDS SUMMARY | 2025-03-19 07:24 | XMS_ITS | Encounter Summary ---
Author Organization [facility] Address [address] [place] [address] Care Team Providers Care Visual Coordinator Name Role Phone Leon Narayan Anne Primary Care Provider Encounter Details Date Type Department Care Team (Late st Contact Info) Description 10/25/2024 Scanned Document [facility] 80 [facility] [address] [place] [phone] Provider, Generic Social History Tobacco Use Types Packs/Day Years [...] Description 03/21/2025 11:32 AM EST Hospital Encounter [facility] Heart & Vascular [place] at [facility] - Electrophysiology Laboratory [address] [place] [address] Shine Burch MD [address] [place] [address] 03/21/2025 11:32 AM EST - 03/21/2025 2:17 PM EST Surgery [facility] Heart & Vascular [place] [facility] - Electrophysiology Laboratory [address] [place] [phone] Shine Burch MD [address] [place] [address] Atrial fibrillation ablation; [id number] MACIEL-TEMO-PATIENT'S LIBRARIAN documented as of this encounter Procedures Procedure Name Priority Date/Time Associated Diagnosis Comments HOLTER MONITOR REPORT 10/25/2024 1:53 PM EDT documented in this encounter Results * HOLTER MONITOR REPORT (10/25/2024 1:53 PM EDT) Anatomical Region Laterality Modality Other Narrative 10/25/2024 1:53 PM EDT Ordered by an unspecified provider. us Generic Provider HX AMB PROCEDURES Final Result documented in this encounter Visit Diagnoses Not on filedocumented in this encounter Care Teams Visual Coordinator Relationship Specialty Start Date End Date Leon Narayan [address] [place] [address] 3[address] [place] [address] PCP - General 10/25/24 documented as of this encounter
--- OUTSIDE RECORDS SUMMARY | 2025-03-19 07:24 | XMS_ITS | Clinical Summary ---
Author Organization [facility] Address [address] [place] [address] Phone Care Team Providers Care Inside Plant Supervisor Name Role Phone Cameron Smith MD Primary Care Provider [phone] Allergies Active Allergy Reactions Criticality Noted Date [...] Encounters Date Type Department Care Team Description 02/27/2025 3:53 PM EDT - 02/27/2025 11:59 PM EDT Hospital Encounter [facility] MRI [address] [place] [address] Low back pain Discharge Disposition: Home or Self Care from Last 3 Months Immunizations Immunization Administration Dates Next Due Influenza Quadravalent, MDCK [...] Health Maintenance Due Date Last Done Comments Colorectal Cancer Screening: Colonoscopy 1974 Hepatitis B Vaccines (1 of 3 - 19+ 3-dose series) 1993 Cholesterol Screening (Lipid Panel) 04/19/2024 HIV Screening 04/19/2024 Hepatitis C Screening 04/19/2024 Social Influencers of Health Screening 04/19/2024 Depression Screening 05/08/2024 Pneumococcal Vaccine: 50+ Years (1 of 1 - PCV) 2024 Zoster Vaccines (1 of 2) 2024 COVID-19 Vaccine (4 - 2024- season) 2025 12/31/2020, 05/18/2020, 04/27/2020 Influenza Vaccine (#1) 2025 , 03/24/2023, 03/14/2022, Additional history exists DTaP,Tdap,and Td Vaccines (2 - Td or Tdap) 09/11/2032 09/11/2022 RSV Immunization Adult Patients (1 - 1-dose 75+ series) 2049 HIB Vaccines Aged Out No longer eligi [...] Comments MR LUMBAR SPINE WO CONTRAST Routine 02/27/2025 4:45 PM EDT Low back pain from Last 3 Months Results * MR Lumbar Spine wo Contrast (02/27/2025 4:45 PM EDT) Anatomical Region Laterality Modality L-spine, Spine Magnetic Resonan ce 03/04/2025 11:1 2 AM EDT Impressions 03/04/2025 12:13 PM EDT Multilevel degenerative changes of the lumbar spine. The most significant finding is a large right central inferiorly projecting extrusion at L4-5 which causes marked impingement of the right L5 nerve root. -------- FINAL REPORT -------- Dictated By: Ellis London Dictated Date: 03/04/2025 11:12 ET Assigned Physician: Ellis London Reviewed and Electronically Signed By: Ellis London Signed Date: 03/04/2025 12:13 ET Workstation ID: [id number] Transcribed By: Self Edit Transcribed Date: 03/04/2025 11:12 ET Narrative 03/04/2025 12:13 PM EDT PROCEDURE: MRI of the lumbar spine without contrast. TECHNIQUE: Multiplanar multisequence MRI of the lumbar spine without intravenous contrast administration. HISTORY: pain COMPARISON: 05/07/2024. FINDINGS: There is a small T2 hyperintense lesion in the lower pole of the right kidney, probably a cyst but not definitive for characterized on this study. Circumaortic left renal vein. No other paraspinous soft tissue findings. Slight S-shaped lumbar scoliosis. Straightening of the typical lordosis. No compression deformity or concerning marrow infiltrative lesion. Normal position of the conus at L1. Lumbar disc levels: L1-2: Small anterior endplate osteophytes. No spinal or foraminal stenosis. L2-3: Small anterior endplate osteophytes. No spinal or foraminal stenosis. L3-4: Small anterior endplate osteophytes. Small symmetric disc bulge with a small annular fissure in small associated focal protrusion in the right central region. Mild bilateral lateral recess stenosis. No spinal or foraminal stenosis. L4-5: Minimal anterior endplate osteophytes. Small symmetric disc bulge with a superimposed inferiorly projecting central and right central extrusion. The extrusion extends 18 mm below the level of the superior L3 endplate and measures 7 mm AP. There is mild-moderate associated spinal stenosis, compounded by prominence of the posterior epidural fat, and significant narrowing of the right lateral recess with impingement of the right L5 nerve root. Mild degenerative irregularity of the facet joints. Mild right foraminal stenosis. L5-S1: Mild endplate irregularity. Minimal anterior endplate osteophytes. Small disc osteophyte complex, most prominent in the left central region, where there is a small annular fissure. Minimal degenerative irregularity of the facet joints. Mild bilateral foraminal stenosis. No spinal stenosis. Procedure Note Ellis London MD - 03/04/2025 PROCEDURE: MRI of the lumbar spine without contrast. TECHNIQUE: Multiplanar multisequence MRI of the lumbar spine withoutintravenous contrast administration. HISTORY: pain COMPARISON: 05/07/2024. FINDINGS: There is a small T2 hyperintense lesion in the lower pole of the rightkidney, probably a cyst but not definitive for characterized on thisstudy. Circumaortic left renal vein. No other paraspinous soft tissuefindings. Slight S-shaped lumbar scoliosis. Straightening of the typical lordosis.No compression deformity or concerning marrow infiltrative lesion. Normal position of the conus at L1. Lumbar disc levels: L1-2: Small anterior endplate osteophytes. No spinal or foraminalstenosis. L2-3: Small anterior endplate osteophytes. No spinal or foraminalstenosis. L3-4: Small anterior endplate osteophytes. Small symmetric disc bulgewith a small annular fissure in small associated focal protrusion in theright central region. Mild bilateral lateral recess stenosis. No spinalor foraminal stenosis. L4-5: Minimal anterior endplate osteophytes. Small symmetric disc bulgewith a superimposed inferiorly projecting central and right centralextrusion. The extrusion extends 18 mm below the level of the superior E6sbeigrch and measures 7 mm AP. There is mild-moderate associated spinalstenosis, compounded by prominence of the posterior epidural fat, andsignificant narrowing of the right lateral recess with impingement of theright L5 nerve root. Mild degenerative irregularity of the facet joints.Mild right foraminal stenosis. L5-S1: Mild endplate irregularity. Minimal anterior endplate osteophytes.Small disc osteophyte complex, most prominent in the left central region,where there is a small annular fissure. Minimal degenerative irregularityof the facet joints. Mild bilateral foraminal stenosis. No spinalstenosis. IMPRESSION: Multilevel degenerative changes of the lumbar spine. The most significantfinding is a large right central inferiorly projecting extrusion at L4-5which causes marked impingement of the right L5 nerve root. -------- FINAL REPORT -------- Dictated By: Ellis London Dictated Date: 03/04/2025 11:12 ET Assigned Physician: Ellis London Reviewed and Electronically Signed By: Ellis London Signed Date: 03/04/2025 12:13 ET Workstation ID: [id number] Transcribed By: Self Edit Transcribed Date: 03/04/2025 11:12 ET Tobias Carbajal MD IMG MRI PROCEDURES Final Result from Last 3 Months Insurance Care Teams Inside Plant Supervisor Relationship Specialty Start Date End Date Cameron Smith MD [address] [place] [address] PCP - General Internal Medicine 05/10/24
--- OUTSIDE RECORDS SUMMARY | 2025-03-19 07:24 | XMS_ITS | Encounter Summary ---
Author Organization [facility] Address [address] [place] [address] Care Team Providers Care Windows Desktop Support Name Role Phone Helene Leno Rodríguez Primary Care Provider [phone] Encounter Details Date Type Department Care Team (Late st Contact Info) Description 03/14/2025 Documentation [facility] Heart & Vascular [place] [facility] - Electrophysiology [address] [place] [address] Maria E Conway, LIZETH [address] [place], [place] [phone] Social History Tobacco Use Types Packs/Day Years [...] - Male 2 03/17/2025 12:32 PM Karolina Alex RN Q1: How often do you have a [...] Description 03/21/2025 11:32 AM EST Hospital Encounter [facility] Heart & Vascular [place] - Electrophysiology Laboratory [address] [place] [phone] Shine Burch MD [address] [place] [address] 03/21/2025 11:32 AM EST - 03/21/2025 2:17 PM EST Surgery [facility] Heart & Vascular [facility] - Electrophysiology Laboratory [address] [place] [phone] Shine Burch MD [address] [place] [address] Atrial fibrillation ablation; [id number] PFA-MDT-BOW MAKER documented as of this encounter Visit Diagnoses Not on filedocumented in this encounter Care Teams Windows Desktop Support Relationship Specialty Start Date End Date Leon Narayan [address] [place] [address] 3[address] [place] [address] PCP - General 10/25/24 documented as of this encounter
--- OUTSIDE RECORDS SUMMARY | 2025-03-19 07:24 | XMS_ITS | Clinical Summary ---
Author Organization [facility] Address [address] [place] [address] Care Team Providers Care Building Supervisor Name Role Phone Cameron Smith Unavailable Unavailable [...] Td Vaccines (1 - Tdap) 09/12/2022 09/11/2022 Pneumococcal Vaccine, 50+ Years (1 of 1 - PCV) 2024 Zoster Vaccines (1 of 2) 2024 COVID-19 Vaccine (4 - season) 2025 12/31/2020, 05/18/2020, 04/27/2020 Influenza Vaccine (#1) 2025 , 03/24/2023, 03/24/2023, [...] this topic Insurance [employer] Care Teams Building Supervisor Relationship Specialty Start Date End Date Cameron Smith PCP - Insurance Payer PCP 3/2/25 Cameron Smith PCP - General Internal Medicine 07/07/24
[2025-03-19 07:33] VITALS: BP 112/76; PULSE 53; O2SAT 98; BMI 29.2
--- NOTE | 2025-03-19 07:33 | MHC.OFFVIS ---
Vital Signs 03/19/25 07:33 Height 6 ft 3 in Weight 233 lb 8 oz BMI 29.2 BP 112/76 Blood Pressure Location Rt brachial Position Sitting Pulse 53 Pulse Source Pulse Oximeter Pulse Oximetry (%) 98 Oxygen Delivery Method Room Air Intake Visit Reasons: 4mnth follow up (CONF.) Intake Note: Follow up Obstructive sleep apnea Auxiliary Engineer Required: No Accompanied by: Self / Same As Patient Allergies REBECCA Inhibitors Allergy (Mild, Verified 03/19/25 07:37) Hives Medication List - Last Reconciled 03/19/25 by Elena Maldonado MD amlodipine 10 mg PO DAILY apixaban (Eliquis) 5 mg PO BID cholecalciferol (vitamin D3) 25 mcg PO DAILY losartan 50 mg PO DAILY propranolol 10 mg PO DAILY HPI Comments Details: 49y/o male comes for follow up of REM dominated LU AHI was 6 REM AHI was 23 and O2 tracy was 81%. He could not tolerate CPAP especially nasal pillow . He started using mandibular advancement device 1 week ago and he is doing well. But he still has frequent arousals at night . He has no issues with falling asleep . He drinks about 3-4 cups coffee a day and his last coffee is around 3-4 pm . He goes to bed 9-10.30pm. He can fall asleep in 30-40 minutes. 3-4 awakenings a night - can fall asleep. 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 He works out after work and does cardio most of the . But his job is stressful . [facility] Medical History Anxiety HTN (hypertension) ADD (attention deficit disorder) Essential tremor Paroxysmal atrial fibrillation Family History Mother New onset a-fib Social History Alcohol intake: never Patient Tobacco Use Status: Never used Tobacco Physical Exam Vital Signs: Last Vital Signs Pulse 53 03/19/25 07:33 BP 112/76 03/19/25 07:33 Pulse Ox 98 03/19/25 07:33 Oxygen Delivery Method Room Air 03/19/25 07:33 BMI result Body Mass Index 29.2 Const General: cooperative, healthy appearing and comfortable Nutritional Appearance: overweight Orientation/consciousness: patient oriented x3 Neuro Other: Mallampatti grade3 General: patient oriented x3, gait normal and moves all extremities Assessment & Plan Assessment & Plan (1) Obstructive sleep apnea: Comment: HST on 10/2024 AHI 16 Supine AHI 22 O2 tracy 81 % Code(s): G47.33 - Obstructive sleep apnea (adult) (pediatric) Category: Medical Plan F/u with [facility]. Compliance with mandibular device stressed Home sleep test to assess therapeutic response Discussed about lifestyle modifications to help with sleep Xanax 0.25 mg qhs prn for anxiety also suggetsed exploring online platforms for psychotherapy or CBT to help with stress. Orders: Orders RT home sleep study Today G47.33 - Obstructive sleep apnea (adult) (pediatric) Medications: New alprazolam (Xanax) 0.25 mg PO BEDTIME PRN 20 tabs 0RF sleep Coding Level of Care Code Est Pt Level 4 (07770) Diagnoses Obstructive sleep apnea G47.33
== END 2025-03-19 08:07 | disposition home or self-care (01) ==
LOC: HO.HSMS 07:22
PROVIDERS: PCP Internal Medicine; Visit Provider Psychiatry & Neurology Neurology
DX: G47.33 Obstructive sleep apnea (adult) (pediatric) (principal)
CPT/HCPCS: 99214

== ENCOUNTER 2025-04-21 15:25 | Outpatient (AMB) | payer OTHER, SELFPAY ==
--- OUTSIDE RECORDS SUMMARY | 2025-04-18 10:30 | XMS_ITS ---
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 Name Role Phone GIOVANNI CAMPO Primary Care Provider Allergies Allergen (clinical drug ingredient) Drug/Non Drug Allergy documented on EMR Reaction Allergy Type Onset Date Status angiotensin-converting enzyme inhibitor (FN) REBECCA Inhibitors Unknown Drug Allergy Acti ve REASON FOR VISIT CPX Medications Medication SIG (Take, Route, Frequency, Duration) Notes Start Date End Date Status Propranolol HCl 20 MG Tablet 1/2 tablet Orally Once a day; Duration: 90 days Active Losartan Potassium 50 MG Tablet 1 tablet Orally Once a day Active Zolpidem Tartrate 5 MG Tablet 1 tablet at bedtime as needed Orally Once a day; Duration: 30 day(s) 11/12/2024 Active amLODIPine Besylate 10 MG Tablet 1 tablet Orally Once a day Active Zepbound 2.5 MG/0.5ML Solution Auto-injector as directed Subcutaneous every 7 days; Duration: 28 days 02/28/2025 Not-Taking Eliquis 5 MG Tablet 1 Tablet Orally twic e a day Active Social History Tobacco Use: Social History Observation Description Date Details (start date - stop date) Never Smoker NA - NA Social History Tobacco Use: Social Info Question Answer Notes Tobacco Control (Standard) Tobacco use: Nonsmoker Additional Details Category Social Info Options Details General 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 Past year's travels: [place] 11/24 24 alcohol use: yes couple nancy on the weekend drug use: no Coffee/Tea/Soda: no Marital Status experience no Living with 3 children, one of them at college Pets 1 dog, 1 cat smokers in household no Problems Problem Type SNOMED Code ICD Code Onset Dates Problem Status W/U Status Risk Notes Problem Obstructive sleep apnea syndrome (41082392) Sleep apnea, obstructive (G47.33) Active confirmed Problem Degeneration of intervertebral disc of lumbar region with discogenic back pain and lower extremity pain (M51.362) Active confirmed Vital Signs Blood pressure systolic 118 mm Hg 04/18/20 25 Blood pressure diastolic 70 mm Hg 025 Height 73.75 in 04/18/2025 Weight 235.6 lbs 04/18/2025 BMI 30.45 kg/m2 04/18/2025 Encounters Encounter Location Date Provider Diagnosis [facility] [address] [place] [address] 04/18/2025 GIOVANNI MONTROSE Paroxysmal atrial fibrillation I48.0 ; Encounter for general adult medical examination without abnormal findings Z00.00 ; Sleep apnea, obstructive G47.33 ; Degeneration of intervertebral disc of lumbar region with discogenic back pain and lower extremity pain M51.362 ; Other fatigue R53.83 ; Other obesity due to excess calories E66.09 ; Body mass index [BMI] 30.0-30.9, adult Z68.30 ; Obesity, class 1 E66.811 and Essential (primary) hypertension I10 Assessments Encounter Date Diagnosis (ICD Code) Assessment Notes Treatment Notes Treatment Clinical Notes Section Notes 04/18/2025 Paroxysmal atrial fibrillation (ICD-10 - I48.0) 1.RHCM: [place] done last year - next in 2033. _update fasting labs. Will get Shingrix 2. Paroxysmal afib: stable post ablation. On Eliquis for 3 months 3. LU : USing dental device - will attempt auth for Zepbound 4.Lumbar DDD: Stable post PRP treatment at [facility] 5. Fatigue: check testosterone level 6. Obesity: Will attempt auth for Zepbound - work at diet/exercise 7. Hypertension: stable on present amlodipine and losartan 04/18/2025 Encounter for general adult medical examination without abnormal findings (ICD-10 - Z00.00) 1.RHCM: [place] done last year - next in 2033. _update fasting labs. Will get Shingrix 2. Paroxysmal afib: stable post ablation. On Eliquis for 3 months 3. LU : USing dental device - will attempt auth for Zepbound 4.Lumbar DDD: Stable post PRP treatment at [facility] 5. Fatigue: check testosterone level 6. Obesity: Will attempt auth for Zepbound - work at diet/exercise 7. Hypertension: stable on present amlodipine and losartan 04/18/2025 Sleep apnea, obstructive (ICD-10 - G47.33) 1.RHCM: [place] done last year - next in 2033. _update fasting labs. Will get Shingrix 2. Paroxysmal afib: stable post ablation. On Eliquis for 3 months 3. LU : USing dental device - will attempt auth for Zepbound 4.Lumbar DDD: Stable post PRP treatment at [facility] 5. Fatigue: check testosterone level 6. Obesity: Will attempt auth for Zepbound - work at diet/exercise 7. Hypertension: stable on present amlodipine and losartan 04/18/2025 Degeneration of intervertebral disc of lumbar region with discogenic back pain and lower extremity pain (ICD-10 - M51.362) 1.RHCM: [place] done last year - next in 2033. _update fasting labs. Will get Shingrix 2. Paroxysmal afib: stable post ablation. On Eliquis for 3 months 3. LU : USing dental device - will attempt auth for Zepbound 4.Lumbar DDD: Stable post PRP treatment at [facility] 5. Fatigue: check testosterone level 6. Obesity: Will attempt auth for Zepbound - work at diet/exercise 7. Hypertension: stable on present amlodipine and losartan 04/18/2025 Other fatigue (ICD-10 - R53.83) 1.RHCM: [place] done last year - next in 2033. _update fasting labs. Will get Shingrix 2. Paroxysmal afib: stable post ablation. On Eliquis for 3 months 3. LU : USing dental device - will attempt auth for Zepbound 4.Lumbar DDD: Stable post PRP treatment at [facility] 5. Fatigue: check testosterone level 6. Obesity: Will attempt auth for Zepbound - work at diet/exercise 7. Hypertension: stable on present amlodipine and losartan 04/18/2025 Other obesity due to excess calories (ICD-10 - E66.09) 1.RHCM: [place] done last year - next in 2033. _update fasting labs. Will get Shingrix 2. Paroxysmal afib: stable post ablation. On Eliquis for 3 months 3. LU : USing dental device - will attempt auth for Zepbound 4.Lumbar DDD: Stable post PRP treatment at [facility] 5. Fatigue: check testosterone level 6. Obesity: Will attempt auth for Zepbound - work at diet/exercise 7. Hypertension: stable on present amlodipine and losartan 04/18/2025 Body mass index [BMI] 30.0-30.9, adult (ICD-10 - Z68.30) 1.RHCM: [place] done last year - next in 2033. _update fasting labs. Will get Shingrix 2. Paroxysmal afib: stable post ablation. On Eliquis for 3 months 3. LU : USing dental device - will attempt auth for Zepbound 4.Lumbar DDD: Stable post PRP treatment at [facility] 5. Fatigue: check testosterone level 6. Obesity: Will attempt auth for Zepbound - work at diet/exercise 7. Hypertension: stable on present amlodipine and losartan 04/18/2025 Obesity, class 1 (ICD-10 - E66.811) 1.RHCM: [place] done last year - next in 2033. _update fasting labs. Will get Shingrix 2. Paroxysmal afib: stable post ablation. On Eliquis for 3 months 3. LU : USing dental device - will attempt auth for Zepbound 4.Lumbar DDD: Stable post PRP treatment at [facility] 5. Fatigue: check testosterone level 6. Obesity: Will attempt auth for Zepbound - work at diet/exercise 7. Hypertension: stable on present amlodipine and losartan 04/18/2025 Essential (primary) hypertension (ICD-10 - I10) 1.RHCM: [place] done last year - next in 2033. _update fasting labs. Will get Shingrix 2. Paroxysmal afib: stable post ablation. On Eliquis for 3 months 3. LU : USing dental device - will attempt auth for Zepbound 4.Lumbar DDD: Stable post PRP treatment at [facility] 5. Fatigue: check testosterone level 6. Obesity: Will attempt auth for Zepbound - work at diet/exercise 7. Hypertension: stable on present amlodipine and losartan Plan Of Treatment Medication Medication Name Sig Start Date Stop Date Notes Losartan Potassium 50 MG Tablet 1 tablet Orally Once a day amLODIPine Besylate 10 MG Tablet 1 tablet Orally Once a day Eliquis 5 MG Tablet 1 Tablet Orally twice a day Pending Test Test Name Order Date EKG 04/18/2025 Future Test Test Name Order Date Hemoglobin [id number] 04/18/2025 Testosterone,Free and Total-[id number] 04/18 Comp. Metabolic Panel [id number] 2024 Lipid Panel-[id number] 04/18/2025 CBC, Platelet, No Differential-[id number] Next Appt Details Provider Name:GIOVANNI CAMPO , 04/24/2026 03:15:00 PM, [address] [place] [address], [id number], History and Physical Notes * HPI (History of Present Illness) Category Sub-Category Detail Notes Category Not es Depression Screening PHQ-2 (2015 Edition) Little interest or pleasure in doing things?: Not at all Feeling down, depressed, or hopeless?: N ot at all Total Score: 0 Examination Category Sub-Category Detail Notes Category Not es General Examination HEENT: PERRLA, EOMI bilaterally, nose clear, oropharynx clear, no TM's normal, scleral icterus, , Normocephalic/atraumatic Neck: no lymphadenopathy, no thyroid abnormality, no bruit, normal ROM of C spine Heart: RRR, normal S1S2, no murmurs, clicks or rubs Lungs: clear to auscultatio n, no crackles, , no wheezes Abdomen: soft, non tender/non distended, no rebound tenderness, no guarding or rigidity, no masses palpated Extremities: no edema General Appearance no apparent distress , obese Skin: no rash Neuro alert and oriented x 3, CN 2-12 intact, no focal moror abnormality, no tremor Peripheral pulses: bilaterally symetric al dorsalis pedis, posterior tibial, radial and Carotids Back: no spinal tenderness Rectal prostate not enlarge d Lymphatics No nodes in neck Psych: affect normal Progress Notes * JAY MITADOB:1975 ( 49 yo M)Acc No.[id number]:04/18/2025 Progress Notes Patient: MITA SINGH Provider: Blanca CAMPO M.D. :1975 A ge:49 Y S ex:Male Date:04/18/2025 Address:[address] [place] [address] [place], [id number] Subjective: * Chief Complaints: * C PX * HPI: D epression Screening: PHQ-2 (2015 Edition) L ittle interest or pleasure in doing things? N ot at all, F eeling down, depressed, or hopeless? N ot at all, T otal Score 0 . * ROS: C ONSTITUTIONAL: no f ever. n o f atigue. n o c hills. n o s weats. E NT: no e ar pain. n o n osebleeds. n o n yaneli congestion. n o s inus problems. n o r hinorrhea. n o s neezing. n o s ore throat. C ARDIOVASCULAR: no c hest pain. n o o rthopnea. n o s yncope. n o c laudication. n o s hortness of breath. n o d izziness. p alpitations y es. R ESPIRATORY: no c ough. n o s hortness of breath. n o w heezing. G ASTROINTESTINAL: no r ectal bleeding. n o a bdominal pain. n o?heartburn. n o n ausea. n o v omiting. n o b loating. n o c onstipation. n o d iarrhea. n o b lood in stool. G ENITOURINARY: weak urine stream y es. n o d ysuria. n o F lank pain. n octuria y es. D ERMATOLOGY: no r lito. n o i tching. M USCULOSKELETAL: no N salinas pain. n o j oint pain. n o b ack pain. E NDOCRINE: no p olydipsia. n o p olyuria. H EMATOLOGY/LYMPH: no e asy bruising. P SYCHIATRIC: no a nxiety. n o i nsomnia. n o d epression. N EUROLOGIC: no h eadache. n o m carlton loss. n o g ait abnormality. n o t remors. * Medical History: cardiovascular, Disease : Hypertension, Afib 07/2024, Ablation Mar 2025 [facility] Medical History Verified * Surgical History: Disease : Pilonidal cyst, Sx_Procedure : excision Surgical History verified. * Hospitalization/Major Diagno stic Procedure: [facility] - cardiac ablation 03/2025 Hospitalization Verified. * Family History: F ather: , Lymphoma,Melanoma, Afib. M other: alive, Atrial fibrillation. S ibling # 1: alive, anxiety. S ibling # 2: alive, POTS. 2 sister(s) . 3 daughter(s) - healthy. . F amily History Verified.. * Social History: G eneral: S mokers in household: no. Alcohol use: yes, couple nancy on the weekend. Drug use: no. Coffee/Tea/Soda: no. Marital Status: . Living with: , 3 children, one of them at college. 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 Asbestos exposure: no. experience: no. Past year's travels: [place] 11/2024. Pets: 1 dog, 1 cat. T obacco Use: T obacco Control (Standard) T obacco use: N onsmoker. Social History Verified. * Medications: T akingEliquis 5 MG Tablet 1 Tablet Orally twice a day , stop date 06/21/2025Losartan Potassium 50 MG Tablet 1 tablet Orally Once a day amLODIPine Besylate 10 MG Tablet 1 tablet Orally Once a day Propranolol HCl 20 MG Tablet 1/2 tablet Orally Once a day Zolpidem Tartrate 5 MG Tablet 1 tablet at bedtime as needed Orally Once a day Taking Eliquis 5 MG Tablet 1 Tablet Orally twice a day , stop date 06/21/2025Taking Losartan Potassium 50 MG Tablet 1 tablet Orally Once a day Taking amLODIPine Besylate 10 MG Tablet 1 tablet Orally Once a day Taking Propranolol HCl 20 MG Tablet 1/2 tablet Orally Once a day Taking Zolpidem Tartrate 5 MG Tablet 1 tablet at bedtime as needed Orally Once a day Not-TakingZepbound 2.5 MG/0.5ML Solution Auto-injector as directed Subcutaneous every 7 days Not-Taking Zepbound 2.5 MG/0.5ML Solution Auto- injector as directed Subcutaneous every 7 days DiscontinuedAmoxicillin-Pot Clavulanate 875- 125 MG Tablet 1 tablet Orally every 12 hrs guaiFENesin-Codeine 100-10 MG/5ML Solution 10 mL as needed Orally every 4 hrs guaiFENesin-Codeine 100-10 MG/5ML Solution 5-10 mL as needed Orally at bedtime Medication List reviewed and reconciled with the patientDiscontinued Amoxicillin-Pot Clavulanate 875-125 MG Tablet 1 tablet Orally every 12 hrs Discontinued guaiFENesin-Codeine 100-10 MG/5ML Solution 10 mL as needed Orally every 4 hrs Discontinued guaiFENesin-Codeine 100-10 MG/5ML Solution 5-10 mL as needed Orally at bedtime Medication List reviewed and reconciled with the patient * Allergies: A CE Inhibitors: AllergyyesAllergies Verified. Objective: * Vitals: H t: 73.75 in, Wt: 235.6 lbs, Temp: 98.7 F, HR: 52 /min, BP:118/70mm Hg, BMI:30.45Index, O2 Sat: 99% on r/a. * Examination: G eneral Examination: General Appearance no apparent distress, obese. H EENT: PERRLA, EOMI bilaterally, nose clear, oropharynx clear, no TM's normal, scleral icterus, , Normocephalic/atraumatic. N salinas: no lymphadenopathy, no thyroid abnormality, no bruit, normal ROM of C spine. H eart: RRR, normal S1S2, no murmurs, clicks or rubs. L ungs: clear to auscultation, no crackles, , no wheezes. A bdomen: soft, non tender/non distended, no rebound tenderness, no guarding or rigidity, no masses palpated. B ack: no spinal tenderness. S kin: n o rash. P eripheral pulses: bilaterally symetrical dorsalis pedis, posterior tibial, radial and Carotids. E xtremities: n o edema. R ectal prostate not enlarged. L ymphatics No nodes in neck. N euro alert and oriented x3, CN 2-12 intact, no focal moror abnormality, no tremor. P sych: affect normal. ? Assessment: * Assessment: 1. P aroxysmal atrial fibrillation - I48.0 (Primary) 2 . E ncounter for general adult medical examination without abnormal findings - Z00.00 3 . S leep apnea, obstructive - G47.33 4 . D egeneration of intervertebral disc of lumbar region with discogenic back pain and lower extremity pain - M51.362 5 . O ther fatigue - R53.83 6 . O ther obesity due to excess calories - E66.09 7 . B mo mass index [BMI] 30.0-30.9, adult - Z68.30 8 . O besity, class 1 - E66.811 9 . E ssential (primary) hypertension - I10 1.RHCM: [place] done last year - next in 2033. _update fasting labs. Will get Shingrix 2. Paroxysmal afib: stable post ablation. On Eliquis for 3 months 3. LU : USing dental device - will attempt auth for Zepbound 4.Lumbar DDD: Stable post PRP treatment at [facility] 5. Fatigue: check testosterone level 6. Obesity: Will attempt auth for Zepbound - work at diet/exercise 7. Hypertension: stable on present amlodipine and losartan Plan: * Treatment: 2. O ther fatigue L AB: Testosterone,Free and Total-[id number] (Ordered for 04/18/2025) L AB: Comp. Metabolic Panel [id number] (Ordered for 04/18/2025) 3. O ther obesity due to excess calories L AB: Lipid Panel-[id number] (Ordered for 04/18/2025) L AB: Hemoglobin P3a-[id number] (Ordered for 04/18/2025) L AB: Comp. Metabolic Panel [id number] (Ordered for 04/18/2025) 4. E ssential (primary) hypertension Continue amLODIPine Besylate Tablet, 10 MG, 1 tablet, Orally, Once a day; C ontinue Losartan Potassium Tablet, 50 MG, 1 tablet, Orally, Once a day. I maging: EKG * Procedure Codes: 9 3000 Electrocardiogram, complete * Preventive Medicine: Screening / Special Tests: C olonoscopy X , L ast done Colonoscopy 0 05/22/2023, C olonoscopy 2 024 10 yr recall. Billing Information: * Procedure Codes: 42659 Electrocardiogram, complete. * Electronic signature of GIOVANNI CAMPO MD on 04/21/2025 at 09:53 PM EST Sign off status: Pending * Provider: Blanca CAMPO M.D. Date: 06/19/2024 Generated for Printi ng/Faelging/eTransmitting on: 1 06/22/2024 09:53 PM EST
[2025-04-21 15:34] VITALS: BP 118/66; PULSE 55; BMI 29.5
--- NOTE | 2025-04-21 15:34 | A.OFFVIS_ITS ---
Vital Signs 04/21/25 15:34 Height 6 ft 3 in Weight 235 lb 14.314 oz BMI 29.5 BP 118/66 Blood Pressure Location Lt brachial Position Sitting Pulse 55 Intake Visit Reasons: 6m follow up Intake Note: 6 month follow-up feeling good Allergies REBECCA Inhibitors Allergy (Mild, Verified 03/19/25 07:37) Hives Medication List - Last Reconciled 04/21/25 by Leon Narayan MD amlodipine 10 mg PO DAILY apixaban (Eliquis) 5 mg PO BID cholecalciferol (vitamin D3) 25 mcg PO DAILY losartan 50 mg PO DAILY propranolol 10 mg PO DAILY HPI Comments Details: Xavier comes for follow-up. He underwent atrial fibrillation ablation about a month ago. Doing well. Occasionally still feels fluttering in his chest but no prolonged palpitations. Advised to take oral anticoagulation with total of 3 months. He has good blood pressure control. Exercises aggressively. No exertional chest pain or shortness of breath. No lightheadedness, syncope. [facility] Medical History Anxiety HTN (hypertension) ADD (attention deficit disorder) Essential tremor Paroxysmal atrial fibrillation Family History Mother New onset a-fib Social History Alcohol intake: never Patient Tobacco Use Status: Never used Tobacco Review of Systems Const Denies chills, Denies fatigue, Denies fever(s), Denies frequent falls, Denies weakness, Denies weight gain and Denies weight loss ENT Denies dizziness Card Denies chest pain, Denies leg edema, Denies lightheadedness, Denies palpitations, Denies dyspnea, Denies dyspnea on exertion, Denies orthopnea and Denies other (loss of consciousness) Resp Denies cough, Denies dyspnea and Denies dyspnea on exertion GI Denies hematochezia and Denies change in stool character Musc Denies abnormal gait, Denies muscle weakness, Denies numbness, Denies radiating pain into limb and Denies tingling Neuro Denies abnormal gait, Denies dizziness, Denies frequent falls, Denies numbness, Denies tingling and Denies weakness Endo Denies fatigue and Denies palpitations Physical Exam Vital Signs: Last Vital Signs Pulse 55 04/21/25 15:34 BP 118/66 04/21/25 15:34 BMI result Body Mass Index 29.5 Const General: cooperative, comfortable, no acute distress, well developed, alert, awake, Physically active and anxious Nutritional Appearance: average body habitus and well nourished Orientation/consciousness: patient oriented x3 Limitations: no limitations HEENT Head: Yes normocephalic and Yes atraumatic Neck Neck: Yes trachea midline, Yes supple and No no JVD Carotids: no bruits Resp Effort & Inspection: normal respiratory effort Auscultation: clear to auscultation bilaterally Cardio Jugular venous distension: no JVD Palpation: normal PMI Rate: regular rate Rhythm: regular rhythm Heart sounds: S1 normal heart sound present, S2 normal heart sound present, no click, no gallops, no murmurs and no rubs GI Auscultation: normal bowel sounds Skin General skin exam: no rashes or lesions noted Neuro General: patient oriented x3 and no focal motor deficits Extrem General: Yes no clubbing, cyanosis or edema Psych Appearance: grossly normal Affect: Anxious affect present Office Procedures EKG Details: EKG shows sinus bradycardia with left axis deviation with incomplete right bundle-branch block, no significant changes. [id number], Complete Assessment & Plan Assessment & Plan (1) Paroxysmal atrial fibrillation: Code(s): I48.0 - Paroxysmal atrial fibrillation Category: Medical Plan: Paroxysmal atrial fibrillation status post recent pulmonary vein isolation with pulse field ablation. This is most likely curative for him for now for short time. Discussed to avoid continued stimulant use. Stress mitigation strategies was discussed. Continue aggressive blood pressure control. Encouraged to maintain activity level as tolerated. Agree with oral anticoagulation withdrawal in total of 3 months since ablation. (2) HTN (hypertension): Code(s): I10 - Essential (primary) hypertension Category: Medical Plan: Hypertension which is currently well optimized advised to monitor blood pressure at home and maintain a log. Goal blood pressure less than 130/80. Low-salt diet was discussed. Advised stress mitigation strategies. Encouraged to maintain aerobic activity as tolerated. Will follow up in the clinic in 1 year's time, sooner PRN. Thank you for allowing me to partake in his care Coding Level of Care Code Est Pt Level 4 (52348) Diagnoses Paroxysmal atrial fibrillation I48.0 HTN (hypertension) I10 CPT Codes EKG - CPT: 48435-Hljjsosyscaxlzquw, Complete ([id number])
--- OUTSIDE RECORDS SUMMARY | 2025-04-21 21:53 | XMS_ITS ---
Author Name Loyd Castillo Address Unknown Organization [facility] Care Team Providers Care Business Transformation Manager Name Role Phone Unavailable Primary Care Physician Unavailab le History Of Present Illness This is a 49 year old male who is an established patient who is being seen for an evaluation of skin lesions.Location: body throughoutQuality: asymptomaticModifying Factors: Nothing makes the lesion better or worseDuration: yearsPertinent History: basal cell skin cancer (see interval history) and family history of melanoma (Father)Additional Visit Reasons: education and counseling about sun exposure, evaluation for suspicious growths, evaluation of current nevi, and surveillance against skin cancer recurrencesAdditional History: Patient presents today for a complete skin exam. Patient has a lesion on his scalp that has been present for the past couple months that he would like evaluated today. Allergies, Adverse Reactions, Alerts Substance RxNorm Reaction(s) Severity Status Start Da te benazepril Hives mild to moderate active REBECCA Inhibitors Hives mild to moderate active 04/18/2019 Medications Medication Generic Name RxNorm Strength Strength Unit Route Dose Dose Form Frequency Date Started Date Ended Status Indication Sig erythromyci n erythrom ycin 128449 5 mg/gram (0.5 %) Ophtha lmic (eye) ointm ent 03/20/20 23 suspend ed Appl y to righ t uppe r eyel twic e a day x 1 week or unti l full y heal ed fluorouraci l fluorour acil 974905 5 % Topica l 1 cream prn 04/06/20 21 suspend ed Appl y spar ingl y to lips twic e a day for 2-[address] redn ess and lokesh ting . amlodipine amlodipi [place] 721981 10 mg Oral 1 table t QD 07/06/19 16 active Eliquis 6172310 5 mg Oral 1 table t bid active losartan losartan 366734 50 mg Oral 1 table t qd active propranolol proprano lol 238170 10 mg Oral 1 table t qd active Losartan Potassium NULL 50 mg po 1 oral QD 17 suspend ed Losartan Potassium NULL 16 suspend ed Minoxidil NULL 02/02/20 12 active Mupirocin NULL 02/02/20 12 suspend ed Propecia NULL 02/02/20 12 active Sertraline HCl NULL 02/01/20 17 suspend ed Triamcinolo ne Acetonide NULL 12 suspend ed Problems Problem Code Type Status Date of Diagnosis Date of Resolution Increased blood pressure (finding) 81411433(SN OMED) Problem active Melanocytic nevus of trunk (disorder) 514473926(S NOMED) Diagnosis active 10/12/2018 Melanocytic nevus of trunk (disorder) 735800509(S NOMED) Diagnosis active 08/23/2017 Other specified health status Z78.9(ICD-1 0) Diagnosis active 01/30/2017 Melanocytic nevus of trunk (disorder) 682823295(S NOMED) Diagnosis active 01/30/2017 Melanocytic nevus of trunk (disorder) 190714842(S NOMED) Diagnosis active 07/06/2015 Benign neoplasm of skin of trunk (disorder) 19219840(SN OMED) Diagnosis active 05/22/2014 Disorder of skin pigmentation (disorder) 42968733(SN OMED) Diagnosis active 10/14/2013 Family history of malignant neoplasm of other organs or systems Z80.8(ICD-1 0) Diagnosis active 04/18/2019 Melanocytic nevi of trunk D22.5(ICD-1 0) Diagnosis active 04/18/2019 Hemangioma of skin and subcutaneous tissue D18.01(ICD- 10) Diagnosis active 04/18/2019 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) Diagnosis active 04/18/2019 Other specified follicular disorders L73.8(ICD-1 0) Diagnosis active 04/18/2019 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/18/2019 Increased blood pressure (finding) 84680851(SN OMED) Problem active Family history of malignant neoplasm of other organs or systems Z80.8(ICD-1 0) Diagnosis active 12/03/2019 Melanocytic nevi, unspecified D22.9(ICD-1 0) Diagnosis active 12/03/2019 Melanocytic nevi of trunk D22.5(ICD-1 0) Diagnosis active 12/03/2019 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) Diagnosis active 12/03/2019 Other diseases of capillaries I78.8(ICD-1 0) Diagnosis active 12/03/2019 Other melanin hyperpigmentation L81.4(ICD-1 0) Diagnosis active 12/03/2019 Other specified counseling Z71.89(ICD- 10) Diagnosis active 12/03/2019 Family history of malignant neoplasm (situation) 717196298(S NOMED) Diagnosis active 10/01/2020 Melanocytic nevus of skin (disorder) 298632750(S NOMED) Diagnosis active 10/01/2020 Disorder of skin (disorder) 22990397(SN OMED) Diagnosis active 10/01/2020 Skin changes due to chronic exposure to non-ionizing radiation (disorder) 683733112(S NOMED) Diagnosis active 10/01/2020 Hemangioma of skin and subcutaneous tissue (disorder) 291841995(S NOMED) Diagnosis active 10/01/2020 Disorder of pigmentation (disorder) 083527113(S NOMED) Diagnosis active 10/01/2020 Non-neoplastic nevus (disorder) 768307180(S NOMED) Diagnosis active 10/01/2020 Melanocytic nevus of left upper limb (disorder) 79463978580 9103(SNOMED ) Diagnosis active 10/01/2020 Melanocytic nevus of right upper limb (disorder) 356339113(S NOMED) Diagnosis active 10/01/2020 Melanocytic nevus of trunk (disorder) 393746711(S NOMED) Diagnosis active 10/01/2020 Melanocytic nevus of left lower limb (disorder) 62944334430 9106(SNOMED ) Diagnosis active 10/01/2020 Melanocytic nevus of lower limb (disorder) 784411420(S NOMED) Diagnosis active 10/01/2020 Patient encounter status (finding) 984670275(S NOMED) Diagnosis active 10/01/2020 Family history of malignant neoplasm (situation) 253505826(S NOMED) Diagnosis active 04/06/2021 Skin changes due to chronic exposure to non-ionizing radiation (disorder) 212403458(S NOMED) Diagnosis active 04/06/2021 Melanocytic nevus of face (disorder) 767331203(S NOMED) Diagnosis active 04/06/2021 Hemangioma of skin and subcutaneous tissue (disorder) 349040777(S NOMED) Diagnosis active 04/06/2021 Non-neoplastic nevus (disorder) 287890827(S NOMED) Diagnosis active 04/06/2021 Melanocytic nevus of left upper limb (disorder) 06263992630 9103(SNOMED ) Diagnosis active 04/06/2021 Melanocytic nevus of right upper limb (disorder) 579502084(S NOMED) Diagnosis active 04/06/2021 Melanocytic nevus of trunk (disorder) 016817095(S NOMED) Diagnosis active 04/06/2021 Melanocytic nevus of left lower limb (disorder) 29596933535 9106(SNOMED ) Diagnosis active 04/06/2021 Patient encounter status (finding) 664307735(S NOMED) Diagnosis active 04/06/2021 Family history of malignant neoplasm (situation) 667176185(S NOMED) Diagnosis active 10/28/2021 Neoplasm of uncertain behavior of skin (disorder) 33092120(SN OMED) Diagnosis active 10/28/2021 Actinic keratosis (disorder) 714230669(S NOMED) Diagnosis active 10/28/2021 Disorder of pigmentation (disorder) 730372181(S NOMED) Diagnosis active 10/28/2021 Disorder of skin (disorder) 88936321(SN OMED) Diagnosis active 10/28/2021 Melanocytic nevus of face (disorder) 759276944(S NOMED) Diagnosis active 10/28/2021 Acute effect of ultraviolet radiation on normal skin (disorder) 718385126(S NOMED) Diagnosis active 10/28/2021 Non-neoplastic nevus (disorder) 126560323(S NOMED) Diagnosis active 10/28/2021 Melanocytic nevus of left upper limb (disorder) 55999202145 9103(SNOMED ) Diagnosis active 10/28/2021 Melanocytic nevus of right upper limb (disorder) 437606205(S NOMED) Diagnosis active 10/28/2021 Melanocytic nevus of trunk (disorder) 729128900(S NOMED) Diagnosis active 10/28/2021 Melanocytic nevus of left lower limb (disorder) 23907341795 9106(SNOMED ) Diagnosis active 10/28/2021 Hemangioma of skin and subcutaneous tissue (disorder) 978063161(S NOMED) Diagnosis active 10/28/2021 Contusion of left index finger (disorder) 16197392983 108813(SNOM ED) Diagnosis active 10/28/2021 Tinea pedis (disorder) 2858232(SNO MED) Diagnosis active 10/28/2021 Patient encounter status (finding) 252034767(S NOMED) Diagnosis active 10/28/2021 Basal cell carcinoma of upper extremity (disorder) 565231917(S NOMED) Diagnosis active 12/09/2021 History of neoplasm (situation) 746206674(S NOMED) Diagnosis active 04/20/2022 Family history of malignant neoplasm (situation) 602875848(S NOMED) Diagnosis active 04/20/2022 Melanocytic nevus of face (disorder) 754698338(S NOMED) Diagnosis active 04/20/2022 Disorder of skin (disorder) 09326643(SN OMED) Diagnosis active 04/20/2022 Acute effect of ultraviolet radiation on normal skin (disorder) 534779912(S NOMED) Diagnosis active 04/20/2022 Non-neoplastic nevus (disorder) 367237488(S NOMED) Diagnosis active 04/20/2022 Hemangioma of skin and subcutaneous tissue (disorder) 904004554(S NOMED) Diagnosis active 04/20/2022 Melanocytic nevus of left upper limb (disorder) 07409360491 9103(SNOMED ) Diagnosis active 04/20/2022 Melanocytic nevus of right upper limb (disorder) 593313465(S NOMED) Diagnosis active 04/20/2022 Melanocytic nevus of trunk (disorder) 883077503(S NOMED) Diagnosis active 04/20/2022 Melanocytic nevus of left lower limb (disorder) 45093393814 9106(SNOMED ) Diagnosis active 04/20/2022 Disorder of pigmentation (disorder) 906344979(S NOMED) Diagnosis active 04/20/2022 Neoplasm of uncertain behavior of skin (disorder) 77158429(SN OMED) Diagnosis active 04/20/2022 Tinea pedis (disorder) 1791744(SNO MED) Diagnosis active 04/20/2022 Patient encounter status (finding) 117548663(S NOMED) Diagnosis active 04/20/2022 Acne (disorder) 53581868(SN OMED) Problem active Basal cell carcinoma of skin (disorder) 548579455(S NOMED) Problem active Acute effect of ultraviolet radiation on normal skin (disorder) 053450641(S NOMED) Diagnosis active 08/02/2022 Scar conditions and fibrosis of skin (disorder) 489707940(S NOMED) Diagnosis active 08/02/2022 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) 11285457(SN OMED) Diagnosis active 08/02/2022 Patient encounter status (finding) 082734521(S NOMED) Diagnosis active 08/02/2022 Neoplasm of uncertain behavior of skin (disorder) 60111433(SN OMED) Diagnosis active 11/22/2022 Melanocytic nevus of face (disorder) 963185904(S NOMED) Diagnosis active 11/22/2022 Disorder of skin (disorder) 33967379(SN OMED) Diagnosis active 11/22/2022 Acute effect of ultraviolet radiation on normal skin (disorder) 728103112(S NOMED) Diagnosis active 11/22/2022 Hemangioma of skin and subcutaneous tissue (disorder) 070577021(S NOMED) Diagnosis active 11/22/2022 Non-neoplastic nevus (disorder) 442057848(S NOMED) Diagnosis active 11/22/2022 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) 01783942(SN OMED) Diagnosis active 11/22/2022 Melanocytic nevus of left upper limb (disorder) 45300364480 9103(SNOMED ) Diagnosis active 11/22/2022 Melanocytic nevus of right upper limb (disorder) 742652963(S NOMED) Diagnosis active 11/22/2022 Melanocytic nevus of trunk (disorder) 272277842(S NOMED) Diagnosis active 11/22/2022 Melanocytic nevus of left lower limb (disorder) 39390126219 9106(SNOMED ) Diagnosis active 11/22/2022 Melanocytic nevus of skin of left ear (disorder) 64463970119 9107(SNOMED ) Diagnosis active 11/22/2022 Disorder of pigmentation (disorder) 709364997(S NOMED) Diagnosis active 11/22/2022 Scar conditions and fibrosis of skin (disorder) 526844037(S NOMED) Diagnosis active 11/22/2022 Pigmented purpuric dermatosis (disorder) 2719000808( SNOMED) Diagnosis active 11/22/2022 Tinea pedis (disorder) 5300887(SNO MED) Diagnosis active 11/22/2022 Family history of malignant neoplasm (situation) 723033036(S NOMED) Diagnosis active 11/22/2022 Patient encounter status (finding) 047591716(S NOMED) Diagnosis active 11/22/2022 Neoplasm of uncertain behavior of skin (disorder) 02801593(SN OMED) Diagnosis active 02/20/2023 Patient encounter status (finding) 870362843(S NOMED) Diagnosis active 02/20/2023 Benign neoplasm of skin of face (disorder) 52730917(SN OMED) Diagnosis active 02/20/2023 Neoplasm of uncertain behavior of skin (disorder) 72584898(SN OMED) Diagnosis active 03/20/2023 Acute effect of ultraviolet radiation on normal skin (disorder) 136024681(S NOMED) Diagnosis active 05/15/2023 Melanocytic nevus of face (disorder) 544431056(S NOMED) Diagnosis active 05/15/2023 Disorder of skin (disorder) 38979717(SN OMED) Diagnosis active 05/15/2023 Disorder of pigmentation (disorder) 805908693(S NOMED) Diagnosis active 05/15/2023 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) 65286849(SN OMED) Diagnosis active 05/15/2023 Melanocytic nevus of left upper limb (disorder) 12365120946 9103(SNOMED ) Diagnosis active 05/15/2023 Melanocytic nevus of right upper limb (disorder) 372119212(S NOMED) Diagnosis active 05/15/2023 Melanocytic nevus of trunk (disorder) 946780651(S NOMED) Diagnosis active 05/15/2023 Melanocytic nevus of left lower limb (disorder) 71974771847 9106(SNOMED ) Diagnosis active 05/15/2023 Melanocytic nevus of skin of left ear (disorder) 33932229295 9107(SNOMED ) Diagnosis active 05/15/2023 Melanocytic nevus of skin (disorder) 179657684(S NOMED) Diagnosis active 05/15/2023 Non-neoplastic nevus (disorder) 081330544(S NOMED) Diagnosis active 05/15/2023 Hemangioma of skin and subcutaneous tissue (disorder) 390984949(S NOMED) Diagnosis active 05/15/2023 Scar conditions and fibrosis of skin (disorder) 455827526(S NOMED) Diagnosis active 05/15/2023 Pigmented purpuric dermatosis (disorder) 8613127705( SNOMED) Diagnosis active 05/15/2023 Tinea pedis (disorder) 7443249(SNO MED) Diagnosis active 05/15/2023 Family history of malignant neoplasm (situation) 628074945(S NOMED) Diagnosis active 05/15/2023 Patient encounter status (finding) 653658504(S NOMED) Diagnosis active 05/15/2023 Inflamed seborrheic keratosis (disorder) 606042348(S NOMED) Diagnosis active 02/21/2024 Hemangioma of skin and subcutaneous tissue (disorder) 608453893(S NOMED) Diagnosis active 02/21/2024 Hypertrophic condition of skin (disorder) 87104035(SN OMED) Diagnosis active 02/21/2024 Melanocytic nevus of region of face (disorder) 0413021177( SNOMED) Diagnosis active 02/21/2024 Inflamed seborrheic keratosis (disorder) 954814188(S NOMED) Diagnosis active 05/10/2024 Disorder of skin (disorder) 76437277(SN OMED) Diagnosis active 05/10/2024 Disorder of pigmentation (disorder) 824626695(S NOMED) Diagnosis active 05/10/2024 Melanocytic nevus of trunk (disorder) 548160768(S NOMED) Diagnosis active 05/10/2024 Melanocytic nevus of skin of face (disorder) 8390628623( SNOMED) Diagnosis active 05/10/2024 Melanocytic nevus of left lower limb (disorder) 42405072097 9106(SNOMED ) Diagnosis active 05/10/2024 Melanocytic nevus of right lower limb (disorder) 32801000887 9108(SNOMED ) Diagnosis active 05/10/2024 Non-neoplastic nevus (disorder) 886281777(S NOMED) Diagnosis active 05/10/2024 Hemangioma of skin and subcutaneous tissue (disorder) 796611361(S NOMED) Diagnosis active 05/10/2024 Asteatosis cutis (disorder) 82553450(SN OMED) Diagnosis active 05/10/2024 Scar conditions and fibrosis of skin (disorder) (S NOMED) Diagnosis active 05/10/2024 Family history of malignant neoplasm (situation) 308511097(S NOMED) Diagnosis active 05/10/2024 Patient encounter status (finding) 739976082(S NOMED) Diagnosis active 05/10/2024 Disorder of pigmentation (disorder) 225123622(S NOMED) Diagnosis active 10/30/2024 Hemangioma of skin and subcutaneous tissue (disorder) 835066634(S NOMED) Diagnosis active 10/30/2024 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) 20058447(SN OMED) Diagnosis active 10/30/2024 Melanocytic nevus of trunk (disorder) 702024038(S NOMED) Diagnosis active 10/30/2024 Melanocytic nevus of left lower limb (disorder) 70173649009 9106(SNOMED ) Diagnosis active 10/30/2024 Melanocytic nevus of right lower limb (disorder) 18205371427 9108(SNOMED ) Diagnosis active 10/30/2024 Melanocytic nevus of skin of face (disorder) 0544352804( SNOMED) Diagnosis active 10/30/2024 Melanocytic nevus of left upper limb (disorder) 34422597685 9103(SNOMED ) Diagnosis active 10/30/2024 Melanocytic nevus (disorder) 408688619(S NOMED) Diagnosis active 10/30/2024 Pigmented purpuric dermatosis (disorder) 6376782828( SNOMED) Diagnosis active 10/30/2024 Scar conditions and fibrosis of skin (disorder) (S NOMED) Diagnosis active 10/30/2024 Family history of malignant neoplasm (situation) 251893227(S NOMED) Diagnosis active 10/30/2024 Patient encounter status (finding) 556084679(S NOMED) Diagnosis active 10/30/2024 Inflamed seborrheic keratosis (disorder) 673462582(S NOMED) Diagnosis active 04/21/2025 Hemangioma of skin and subcutaneous tissue (disorder) 582844003(S NOMED) Diagnosis active 04/21/2025 Melanocytic nevus of trunk (disorder) 659355191(S NOMED) Diagnosis active 04/21/2025 Melanocytic nevus of left lower limb (disorder) 37160145988 9106(SNOMED ) Diagnosis active 04/21/2025 Melanocytic nevus of right lower limb (disorder) 52287618463 9108(SNOMED ) Diagnosis active 04/21/2025 Melanocytic nevus of skin of face (disorder) 5259189764( SNOMED) Diagnosis active 04/21/2025 Melanocytic nevus of left upper limb (disorder) 20965878404 9103(SNOMED ) Diagnosis active 04/21/2025 Disorder of skin (disorder) 80225466(SN OMED) Diagnosis active 04/21/2025 Disorder of pigmentation (disorder) 039067633(S NOMED) Diagnosis active 04/21/2025 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 Office phonenumber is [phone]. Office fax number is [phone]. 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)Nevus Flammeus (Q82.5)Junctional Nevi (D22.5)Compound Nevus (D22.5)Scar (L90.5)Family history of malignant melanoma (Z80.8)Family history of non-melanoma skin cancer (Z80.8)Skin Education (Z71.89) [facility] 04/21/2025 14:45:00 [place] [id number] Reason For Referral No data Procedures Procedure Date Documentation of current medications (pr ocedure) 04/21/2025 12:00 am UTC Cryotherapy of skin lesion with liquid n itrogen (procedure) 04/21/2025 12:00 am UTC Cryotherapy of skin lesion with liquid n itrogen (procedure) 05/10/2024 12:00 am UTC Cryotherapy of skin lesion with liquid n itrogen (procedure) 02/21/2024 12:00 am UTC Documentation of current medications (pr ocedure) 05/15/2023 12:00 am UTC Shave biopsy (procedure) 03/20/2023 12:0 0 am UTC Documentation of current medications (pr ocedure) 02/20/2023 12:00 am UTC Documentation of current medications (pr ocedure) 11/25/2022 12:00 am UTC Documentation of current medications (pr ocedure) 08/02/2022 12:00 am UTC Documentation of current medications (pr ocedure) 04/20/2022 12:00 am UTC Cryotherapy of skin lesion with liquid n itrogen (procedure) 04/20/2022 12:00 am UTC Documentation of current medications (pr ocedure) 12/09/2021 12:00 am UTC Tumor destruction (procedure) 12/09/2021 12:00 am UTC Documentation of current medications (pr ocedure) 10/28/2021 12:00 am UTC Shave biopsy (procedure) 10/28/2021 12:0 0 am UTC Cryotherapy of skin lesion with liquid n itrogen (procedure) 10/28/2021 12:00 am UTC Surgical biopsy of skin (procedure) Documentation of past medical history (p rocedure) Surgical biopsy of skin (procedure) Documentation of past medical history (p rocedure) Surgical biopsy of skin (procedure) Documentation of past medical history (p rocedure) Surgical biopsy of skin (procedure) Documentation of past medical history (p rocedure) Surgical biopsy of skin (procedure) Documentation of past medical history (p rocedure) Surgical biopsy of skin (procedure) Documentation of past medical history (p rocedure) Surgical biopsy of skin (procedure) Surgical biopsy of skin (procedure) Surgical biopsy of skin (procedure) Surgical biopsy of skin (procedure) Surgical biopsy of skin (procedure) Surgical biopsy of skin (procedure) Surgical biopsy of skin (procedure) Surgical biopsy of skin (procedure) Surgical biopsy of skin (procedure) Surgical biopsy of skin (procedure) Cardiac ablation system (physical object ) Surgical biopsy of skin (procedure) Cardiac ablation system (physical object ) March 2025 Review Of Systems Provider reviewed on Apr 21, 2025.A focused review of systems was performed including Integumentary.No Problems With Healing And No Problems With Scarring (hypertrophic Or Keloid). Assessment 1.Irritated Seborrheic KeratosisCounselingLiquid Nitrogen: scalp; Application Tool - Cotton Tipped Applicator; Duration of freeze thaw-cycle (seconds) - 10; Number of freeze-thaw Cycles - 2 freeze-thaw cycles; Medical Necessity Justification (varies by insurance carrier and by region) - irritated, itchy, at risk for and/or subject to recurrent physical trauma as a result of lesion type and location with history of the same, and inflamed.Additional Notes2.Morse AngiomasCounseling3.Benign NeviCounseling4.Sebaceous HyperplasiaCounseling5.LentiginesCounseling6.PoikilodermaCounselingReassurance7. Nevus FlammeusCounseling8.Junctional NeviCounseling9.Compound QblugIqocisumni80.HpgdEvatyillrf92.Family history of malignant melanoma - VwvcouXeggbfasty63.Family history of non-melanoma skin ozgiafEozvstsuei39.Skin EducationCounseling Plan of Care Future visit for 10/06/2025 - Follow up in 6 months for: Skin Check - 15 minutes (as previously scheduled). Other Instructions: Annual CSE (October 2025). Other Instructions: Annual CSE (October 2025). Future visit for 04/21/2026 - Follow up in 1 year for: Skin Check - 15 minutes Code Detail Instructions 875313 erythromycin 5 mg/gr am (0.5 %) eye ointment Apply to right upper eyel twice a day x 1 week or until fully healed 510882 fluorouracil 5 % topical cream A pply sparingly to lips twice a day for 2-4 weeks. Expect redness and crusting. Instructions * I counseled the patient regarding the following:Skin Care: Irritated Seborrheic Keratoses can be removed with cryotherapy.Expectations: Irritated Seborrheic Keratoses are benign growths that become inflamed, itchy, tender, traumatized, caught on clothing, or exhibit bleeding or crusting.Contact Offi ce if: If Irritated Seborrheic Keratosis fails to resolve despite treatment, or if you develop a side effect from therapy, such as unbearable crusting, scabbing, redness and tenderness. * I counseled the patient regarding the following:Expectations: Morse Angiomas are benign vascular growths. * I counseled the patient regarding the following:Instructions: Monthly self- skin checks to monitor for any changes in moles are recommended.Expectations: No treatment is necessary.Contact Office if: Any moles change in size, shape or color; itch, burn or bleed.I recommended the following: Broad Spectrum Sunscreen SPF 30+ - SPF 30 or higher * I counseled the patient regarding the following:Expectations: Sebaceous Hyperplasia are benign, enlarged oil glands within the skin. * I counseled the patient regarding the following:Expectations: Lentigines are benign pigmented lesions that occur on sun-exposed and sun-damaged skin. They are benign. * I counseled the patient regarding the following:Skin Care: Poikiloderma can be treated with non-ablative fraxel or pulse dye laser. Preventative measures such as broad spectrum sunscreen and protective clothing are also recommended.Expectations: Poikiloderma is a type of photo-aging characterized by pigmentation, telangiectasia and atrophy.Contact Office if: If Poikiloderma fails to resolve with therapy. * I counseled the patient regarding the following:Skin care: Nevus Flammeus usually fades within 1-2 years. Persistant lesions can respond to pulse dye laser.Expectations: Nevus Flammeus are stable, unilateral or midline vascular networks. * I counseled the patient regarding the following:Instructions: Monthly self- skin checks to monitor for any changes in moles are recommended.Expectations: No treatment is necessary.Contact Office if: Any moles change in size, shape or color; itch, burn or bleed.I recommended the following: Self-Skin Exams * I counseled the patient regarding the following:Instructions: Monthly self- skin checks to monitor for any changes in moles are recommended.Expectations: No treatment is necessary.Contact Office if: Any moles change in size, shape or color; itch, burn or bleed.I recommended the following: Self-Skin Exams * I counseled the patient regarding the following:Skin Care: Patients with a history of non-melanoma skin cancer should monitor their skin every 2-3 months. Use broad spectrum SPF 30 or higher sunscreen on sun-exposed skin daily. In addition, wear sun-protective clothing, including hats and sunglasses, seek shade when available, and avoid the midday sun when possible.Expectations: Scars from excisional sites of non-melanoma skin cancers should be monitored for any recurrences.Contact Office if: If the patient notices discoloration or a bump arising from a previously stable scar or any new lesions that are not healing. * I counseled the patient regarding the following:Skin Care: Patients with a family history of melanoma should wear broad spectrum sunscreen and sun protective clothing.Expectations: Patients with a family history of melanoma from a 1st degree relative have a higher risk of developing a melanoma royce red with the rest of the population. Monthly self-skin checks should be performed to monitor for any moles that change in size, shape or color, itch burn or bleed.Contact Office if: Patient notices any new or changing moles. * I counseled the patient regarding the following:Skin Care: Patients with a family history of non-melanoma should wear broad spectrum sunscreen and sun protective clothing.Expectations: Patients with a family history of non- melanoma skin cancer should undergo monthly self-skin checks to monitor for a ny new growths that fail to heal, enlarge or become painful.Contact Office if: Patient notices any new or changing lesions. * I counseled the patient regarding the following:Sun screen (SPF 30 or greater) should be applied during peak UV exposure (between 10am and 2pm) and reapplied after exercise or swimming.The importanceof monthly self-examination was emphasized.Hats, sunglasses, protective clothing, shade and avoidance of mid- day sun encouraged.I recommended the following: Broad Spectrum Sunscreen SPF 30+Self-Skin Exams Social History Code Activity Start Date End Date [id number] (SNOMED) Never smoker Sex Male Sexual orientation Unspecified Gender identity Unspecified Vital Signs No data Insurances Coverage Status Coverage Type Relationship to Subscriber Member Identifier Subscriber Identifier Group Identifier Payer Identifier Active 1 Self [id number] Inactive 2 Self [id number]
--- OUTSIDE RECORDS SUMMARY | 2025-04-21 21:53 | XMS_ITS | Clinical Summary ---
Author Organization [facility] Address [address] [place] [address] Care Team Providers Care Starbucks Clerk Name Role Phone Cameron Smith Unavailable Unavailable [...] this topic Insurance [employer]CIAL [employer]IC Care Teams Starbucks Clerk Relationship Specialty Start Date End Date Cameron Smith PCP - Insurance Payer PCP 3/2/25 Cameron Smith PCP - General Internal Medicine 07/07/24
--- OUTSIDE RECORDS SUMMARY | 2025-04-21 21:53 | XMS_ITS | Clinical Summary ---
Author Organization [facility] Address [address] [place] [address] Phone Care Team Providers Care Armored Vehicle Officer Name Role Phone Cameron Smith MD Primary Care Provider [phone] Allergies Active Allergy Reactions Criticality Noted Date [...] - 02/27/2025 11:59 PM EDT Hospital Encounter [facility] MRI [address] [place] [address] Low back pain Discharge Disposition: [...] Signed Date: 03/04/2025 12:13 ET Workstation ID: [id number] Transcribed By: Self Edit Transcribed Date: 03/04/2025 [...] mm below the level of the superior L4htdesyrr and measures 7 mm AP. There is [...] Signed Date: 03/04/2025 12:13 ET Workstation ID: [id number] Transcribed By: Self Edit Transcribed Date: 03/04/2025 11:12 ET Tobias Carbajal MD IMG MRI PROCEDURES Final Result from Last 3 Months Insurance Care Teams Armored Vehicle Officer Relationship Specialty Start Date End Date Cameron Smith MD [address] [place] [address] PCP - General Internal Medicine 05/10/24
--- OUTSIDE RECORDS SUMMARY | 2025-04-21 21:53 | XMS_ITS | Encounter Summary ---
Author Organization [facility] Address [address] [address] Phone Care Team Providers Care Workers' Compensation Mediator Name Role Phone Cameron Smith MD Primary Care Provider [phone] Encounter Details Date Type Department Care Team (Late st Contact Info) Description 05/22/2023 Procedure Pass [facility] Endoscopy Admitting Dept Virtual Department [address] [place] [address] Social History Tobacco Use Types Packs/Day Years [...] on filedocumented in this encounter Care Teams Workers' Compensation Mediator Relationship Specialty Start Date End Date Cameron Smith MD [address] [place] [address] PCP - General Internal Medicine 04/25/23 documented as of this encounter Additional Source Comments The information contained in this document represents components of the legal health record. It is not the complete legal health record.[facility]
--- OUTSIDE RECORDS SUMMARY | 2025-04-21 21:54 | XMS_ITS | Clinical Summary ---
Author Organization [facility] Address [address] [place] [address] Care Team Providers Care Manager Internet Retails Sales Name Role Phone Pcp, No Primary Care [...] complete this topic Insurance [employer]IC [address] [place], [place] [id number] Care Teams Manager [employer] Ret[employer] Sales Relationship Specialty Start Date End Date Pcp, [place] [address] PCP - General 09/11/22
--- OUTSIDE RECORDS SUMMARY | 2025-04-21 21:54 | XMS_ITS | Encounter Summary ---
Author Organization [facility] Address [address] [place] [address] Care Team Providers Care Collar Starcher Name Role Phone Leon Narayan Unavailable Cameron Smith MD Primary Care Provider [phone] Encounter Details Date Type Department Care Team (Late st Contact Info) Description 10/25/2024 Scanned Document [address] [place] [id number] Cardiology, Scan Social History Tobacco Use [...] on file documented as of this encounter Procedures Procedure Name Priority Date/Time Associated Diagnosis Comments ECG 12-LEAD 10/25/2024 1:52 PM EDT documented in this encounter Results * ECG 12 lead (10/25/2024 1:52 PM EDT) us Scan Cardiology ECG ORDERABLES Final Result documented in this encounter Visit Diagnoses Not on filedocumented in this encounter Care Teams Collar Starcher Relationship Specialty Start Date End Date Leon Narayan [address] [place] [address] [address] [place] [address] PCP - Cardiology 10/25/24 Cameron Smith MD [address] [place] [address] PCP - General 03/21/25 documented as of this encounter
--- OUTSIDE RECORDS SUMMARY | 2025-04-21 21:54 | XMS_ITS | Encounter Summary ---
Author Organization [facility] Address [address] [place] [address] Care Team Providers Care Director Of Officiating Name Role Phone Leon Narayan Unavailable Cameron Smith MD Primary Care Provider [phone] Encounter Details Date Type Department Care Team (Late st Contact Info) Description 10/25/2024 Scanned Document [address] [place] [address] Provider, Generic Social History Tobacco Use [...] in this encounter Care Teams Director Of Officiating Relationship Specialty Start Date End Date Leon Narayan [address] [place] [address] 3[address] [place] [address] PCP - Cardiology 10/25/24 Cameron Smith MD [address] [place] [address] PCP - General 03/21/25 documented as of this encounter
--- OUTSIDE RECORDS SUMMARY | 2025-04-21 21:54 | XMS_ITS | Patient Health Record ---
Author Organization [facility] Address [address] [place] [address] Care Team Providers Care Core Machine Tender Name Role Phone GIOVANNI CAMPO Primary Care Provider RAYMOND PARIS Unavailable [phone] Allergies Allergen (clinical drug ingredient) Drug/Non Drug Allergy documented on EMR Reaction Allergy Type Onset Date Status angiotensin-converting enzyme inhibitor (FN) REBECCA Inhibitors Unknown Drug Allergy Acti ve Reason For Referral Reason Patient needs insura nce referral viv appt tomorrow Dr Mercado Diagnosis 1 Degeneration of inte rvertebral disc of lumbar region with discogenic back pain (M51.360) Referral Organization [facility] Referring Provider First Name GIOVANNI Referring Provider Last Name JAHAIRA Referring Provider Speciality Internal M edicine Referred Provider GERMAN MERCADO Referred Provider Specialty Physical Med icine and Rehabilitation General Notes Nabila MARS Admin 04:22:33 PM > no referral required as doctor is in network with [facility]>faxed to Referral Priority Stat Referral Appointment Date 04/26/2024 Medications Medication SIG (Take, Route, Frequency, Duration) Notes Start Date End Date Status Propranolol HCl 20 MG Tablet 1/2 tablet Orally Once a day; Duration: 90 days Active Losartan Potassium 50 MG Tablet 1 tablet Orally Once a day Active amLODIPine Besylate 10 MG Tablet 1 tablet Orally Once a day Active Zepbound 2.5 MG/0.5ML Solution Auto-injector as directed Subcutaneous every 7 days; Duration: 28 days 02/28/2025 Not-Taking Eliquis 5 MG Tablet 1 Tablet Orally twic e a day Active Zolpidem Tartrate 5 MG Tablet 1 tablet at bedtime as needed Orally Once a day; Duration: 30 day(s) 11/12/2024 Active Immunizations Vaccine Route Administration Date Status Comme nts Influenza, Flucelvax IM Intramuscular 03/24/2023 Administe red Social History Tobacco Use: Social History Observation Description Date Details (start date - stop date) Never Smoker NA - NA Social History Tobacco Use: Social Info Question Answer Notes Tobacco Control (Standard) Tobacco use: Nonsmoker Smoking Are you a: never smoker Additional Details Category Social Info Options Details General 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 Past year's travels: [place] 11/24 24 alcohol use: yes couple nancy on the weekend drug use: no Coffee/Tea/Soda: no Marital Status experience no Living with 3 children, one of them at college Pets 1 dog, 1 cat smokers in household no Problems Problem Type SNOMED Code ICD Code Onset Dates Problem Status W/U Status Risk Notes Problem Essential hypertension (41418552) Essential (primary) hypertension (I10) Active confirmed Problem Paroxysmal atrial fibrillation (401480812) Paroxysmal atrial fibrillation (I48.0) Active confirmed Problem Thrombocytopenia (113713642) Thrombocytopenia (D69.6) Active confirmed Problem Obesity due to excess calories (715318285) Other obesity due to excess calories (E66.09) Active confirmed Problem Insomnia (909438218) Insomnia, unspecified type (G47.00) Active confirmed Problem Obstructive sleep apnea syndrome (27017836) Sleep apnea, obstructive (G47.33) Active confirmed Problem Hyperlipidemia (98085934) Other hyperlipidemia (E78.49) Active confirmed Problem Attention deficit hyperactivity disorder (716782563) Adult ADHD (F90.9) Active confirmed Problem Body mass index 30+ - obesity (481449919) Body mass index [BMI] 30.0-30.9, adult (Z68.30) Active confirmed Problem Obese class I (finding) (926379059816968) Obesity, class 1 (E66.811) Active confirmed Problem Degeneration of intervertebral disc of lumbar region with discogenic back pain and lower extremity pain (M51.362) Active confirmed Vital Signs Blood pressure diastolic 70 mm Hg 04/18/2025 Height 73.75 in 04/18/2025 Blood pressure systolic 118 mm Hg 04/18/2025 Weight 235.6 lbs 04/18/2025 BMI 30.45 kg/m2 04/18/2025 Encounters Encounter Location Date Provider Diagnosis [address] [address] 04/18/2025 PSYCHIATRIC Paroxysmal atrial fibrillation I48.0 ; Encounter for [...] 1 E66.811 and Essential (primary) hypertension I10 [place] [id number]/25/2024 PSYCHIATRIC Fever, unspecified R 50.9 and Degeneration of intervertebral disc of lumbar region with discogenic back pain M51.[address] [address] 05/31/2024 PSYCHIATRIC Other obesity due to excess calories E66.09 ; Body mass index [BMI] 30.0-30.9, adult Z68.30 ; Obesity, class 1 E66.811 and Adult ADHD F90.9 [place] [id number]/03/2024 PSYCHIATRIC Acute pharyngitis, unspecified etiology J02.9 ; Acute non-recurrent sinusitis, unspecified location J01.90 ; Essential (primary) hypertension I10 and Paroxysmal atrial fibrillation I48.[address] [address] 05/10/2024 PSYCHIATRIC Other fatigue R53.83 ; Thrombocytopenia D69.6 and Annual physical exam Z00.[address] [address] 05/14/2024 PSYCHIATRIC Elevated transaminas e level R74.[address] [address] 05/29/2024 PSYCHIATRIC Encounter for genera l adult medical examination without abnormal findings Z00.[address] [address] 05/31/2024 [facility] [address] [place] [address] 07/09/2024 [facility] [address] [place] [address] 10/03/2024 [facility] [address] [place] [address], [place] [address] 10/03/2024 PSYCHIATRIC Acute pharyngitis, unspecified etiology J02.9 [facility] [address] [place] [address], [place] [address] 11/12/2024 [facility] [address] [place] [address], [place] [address] 01/08/2025 [facility] [address] [place] [address], [place] [address] 02/28/2025 PSYCHIATRIC Assessments Encounter Date Diagnosis (ICD Code) Assessment Notes Treatment Notes Treatment Clinical Notes Section Notes 04/25/2024 Fever, unspecified (ICD-10 - R50.9) 1. Fever: Source unclear. Flu and COVID swabs were negative in the office today. Will send for laboratory studies including CBC, sed rate, Lyme testing, urine with reflex to culture as well as blood cultures and follow-up results. Encouraged Tylenol or Advil for fever. 2. Lumbar degenerative disc disease: Scheduled for epidural steroid injection tomorrow. If fever ongoing encouraged postponement 04/25/2024 Degeneration of intervertebral disc of lumbar region with discogenic back pain (ICD-10 - M51.360) 1. Fever: Source unclear. Flu and COVID swabs were negative in the office today. Will send for laboratory studies including CBC, sed rate, Lyme testing, urine with reflex to culture as well as blood cultures and follow-up results. Encouraged Tylenol or Advil for fever. 2. Lumbar degenerative disc disease: Scheduled for epidural steroid injection tomorrow. If fever ongoing encouraged postponement 05/14/2024 Elevated transaminase level (ICD-10 - R74.01) 10/03/2024 Acute pharyngitis, unspecified etiology (ICD-10 - J02.9) 1. Pharyngitis/sinu sitis: Will cover with Augmentin and provide Robitussin with codeine to assist with sleep. COVID testing is negative today 2. Hypertension: Stable on present therapy. No changes made 3. Paroxysmal atrial fibrillation: No recurrence since isolated episode in July. Patient is off Concerta at present as stimulant could conceivably have contributed 10/03/2024 Acute non-recurrent sinusitis, unspecified location (ICD-10 - J01.90) 1. Pharyngitis/sinu sitis: Will cover with Augmentin and provide Robitussin with codeine to assist with sleep. COVID testing is negative today 2. Hypertension: Stable on present therapy. No changes made 3. Paroxysmal atrial fibrillation: No recurrence since isolated episode in July. Patient is off Concerta at present as stimulant could conceivably have contributed 04/18/2025 Encounter for general adult medical examination without abnormal findings (ICD-10 - Z00.00) 1.RHCM: George done last year - next in 2033. [...] stable on present amlodipine and losartan 04/18/2025 Paroxysmal atrial fibrillation (ICD-10 - I48.0) 1.RHCM: George done last year - next in 2033. [...] Hypertension: stable on present amlodipine and losartan 10/03/2024 Acute pharyngitis, unspecified etiology (ICD-10 - J02.9) 05/29/2024 Encounter for general adult medical examination without abnormal findings (ICD-10 - Z00.00) 05/10/2024 Other fatigue (ICD-10 - R53.83) 05/10/2024 Thrombocytopenia (ICD-10 - D69.6) 05/31/2024 Other obesity due to excess calories (ICD-10 - E66.09) 1. Obesity: We will attempt authorization for Wegovy. Reviewed possible side effects and patient wishes to proceed 2. Adult ADHD: We will trial bumping the Concerta 36 mg and following 05/31/2024 Body mass index [BMI] 30.0-30.9, adult (ICD-10 - Z68.30) 1. Obesity: We will attempt authorization for Wegovy. Reviewed possible side effects and patient wishes to proceed 2. Adult ADHD: We will trial bumping the Concerta 36 mg and following 05/31/2024 Obesity, class 1 (ICD-10 - E66.811) 1. Obesity: We will attempt authorization for Wegovy. Reviewed possible side effects and patient wishes to proceed 2. Adult ADHD: We will trial bumping the Concerta 36 mg and following 04/18/2025 Sleep apnea, obstructive (ICD-10 - G47.33) 1.RHCM: George done last year - next in 2033. [...] Hypertension: stable on present amlodipine and losartan 10/03/2024 Essential (primary) hypertension (ICD-10 - I10) 1. Pharyngitis/sinu sitis: Will cover with Augmentin and provide Robitussin with codeine to assist with sleep. COVID testing is negative today 2. Hypertension: Stable on present therapy. No changes made 3. Paroxysmal atrial fibrillation: No recurrence since isolated episode in July. Patient is off Concerta at present as stimulant could conceivably have contributed 10/03/2024 Paroxysmal atrial fibrillation (ICD-10 - I48.0) 1. Pharyngitis/sinu sitis: Will cover with Augmentin and provide Robitussin with codeine to assist with sleep. COVID testing is negative today 2. Hypertension: Stable on present therapy. No changes made 3. Paroxysmal atrial fibrillation: No recurrence since isolated episode in July. Patient is off Concerta at present as stimulant could conceivably have contributed 04/18/2025 Degeneration of intervertebral disc of lumbar region with discogenic back pain and lower extremity pain (ICD-10 - M51.362) 1.RHCM: George done last year - next in 2033. [...] Hypertension: stable on present amlodipine and losartan 05/31/2024 Adult ADHD (ICD-10 - F90.9) 1. Obesity: We will attempt authorization for Wegovy. Reviewed possible side effects and patient wishes to proceed 2. Adult ADHD: We will trial bumping the Concerta 36 mg and following 04/18/2025 Other fatigue (ICD-10 - R53.83) 1.RHCM: George done last year - next in 2033. [...] Hypertension: stable on present amlodipine and losartan 05/10/2024 Annual physical exam (ICD-10 - Z00.00) 04/18/2025 Other obesity due to excess calories (ICD-10 - E66.09) 1.RHCM: George done last year - next in 2033. [...] [BMI] 30.0-30.9, adult (ICD-10 - Z68.30) 1.RHCM: George done last year - next in 2033. [...] Obesity, class 1 (ICD-10 - E66.811) 1.RHCM: George done last year - next in 2033. [...] Essential (primary) hypertension (ICD-10 - I10) 1.RHCM: George done last year - next in 2033. [...] present amlodipine and losartan Plan Of Treatment Pending Test Test Name Order Date EKG 04/18/2025 Future Test Test Name Order Date CBC With Differential/Platelet-[id number] Prostate-Specific Ag (PSA)-[id number] 2023 Albumin/Creatinine Ratio,Urine-[id number] Lipid Panel-[id number] 04/12/2024 Comp. Metabolic Panel ([id number] 2023 TestT+TestF+SHBG-[id number] 04/12/2024 Blood Culture 2 -[id number] 04/25/2024 Comp. Metabolic Panel [id number] 2024 Rapid Covid-19 10/03/2024 Albumin/Creatinine Ratio,Urine-[id number] Hemoglobin Z2e-[id number] 04/18/2025 Testosterone,Free and Total-[id number] 04/18 Comp. Metabolic Panel [id number] 2024 Lipid Panel-[id number] 04/18/2025 CBC, Platelet, No Differential-[id number] Next Appt Details Provider Name:GIOVANNI CAMPO , 04/24/2026 03:15:00 PM, [address] [place] [address], [phone], Insurance Providers Payer Name Payer Address Payer Phone Subscriber Number Group Number Insured Name Patient Relationship to Insured Coverage Start Date Coverage End Date [facility] [address] [place] [id number] MITA LUTZ Self - patient is the insured 3 Medical (General) History Medical History History ICD Code cardiovascular, Disease : Hypertension, Afib 07/2024, Ablation Mar 2025 [facility] Surgical History Surgery Date(Month/Year) Disease : Pilonidal cyst, Sx_Procedure : excision Hospitalization History Reason Date(Month/Year) [facility] - cardiac ablation 2024
--- OUTSIDE RECORDS SUMMARY | 2025-04-21 21:54 | XMS_ITS | Encounter Summary ---
Author Organization [facility] Address [address] [place] [address] Care Team Providers Care Vat Cleaner Name Role Phone Leon Narayan Unavailable Cameron Smith MD Primary Care Provider [phone] Encounter Details Date Type Department Care Team (Late st Contact Info) Description 11/13/2024 Scanned Document [facility] Heart & Vascular [place] - Electrophysiology [address] [place] [address] Shine Burch MD [address] [place] [address] Social History Tobacco Use Types Packs/Day Years [...] on filedocumented in this encounter Care Teams Vat Cleaner Relationship Specialty Start Date End Date Leon Narayan [address] [place] [address] 3rd [place] [address] PCP - Cardiology 10/25/24 Cameron Smith MD [address] [address] PCP - General 03/21/25 documented as of this encounter
--- OUTSIDE RECORDS SUMMARY | 2025-04-21 21:54 | XMS_ITS | Clinical Summary ---
Author Organization [facility] Address [address] [place] [address] Care Team Providers Care Recording Studio Intern Name Role Phone Leon Narayan Unavailable Cameron Smith MD Primary Care Provider [phone] Allergies Active Allergy Reactions Criticality Noted Date [...] 5 MG tabletIndicatio ns:PAF (paroxysmal atrial fibrillation) (HCC),Bradycard ia Take 1 tablet (5 mg total) by mouth 2 (two) times a day. 180 tablet 3 03/10/2025 Active testosterone cypionate (DEPO-TESTOTERO NE CYPIONATE) 100 mg/mL injection Inject into the shoulder, thigh, or buttocks every 14 days (2 weeks). Active TESTOSTERONE ENANTHATE SC Inject 0.15 mg under the skin daily. Max Daily Amount: 0.15 mg Active acetaminophen (TYLENOL) 325 MG tabletIndicatio ns:Paroxysmal A-fib (HCC) Take 2 tablets (650 mg total) by mouth every 4 (four) hours as needed for mild pain. 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 03/21/2025 8:40 AM EST - 03/21/2025 6:36 PM EST Hospital Encounter [facility] Electrophysiology [address] [address] Shine Burch MD Discharge Disposition: Home or Self Care 03/14/2025 Documentation [facility] - Electrophysiology [address] [place] [address] Maria E [place] RN 03/10/2025 3:00 PM EST Office Visit [facility] - Electrophysiology [address] [place] [address] Shine Burch MD PAF (paroxysmal atrial fibrillation) (HCC) (Primary Dx); Bradycardia from Last 3 Months Family History Medical History Relation Name Comments Arrhythmia Father Josh Bolivar Hyperlipidemia Father Josh Bolivar Hypertension Father Josh Bolivar Melanoma Father Josh Bolivar Heart attack Maternal Grandfather Alexander Merklas Heart disease Maternal Grandfather Alexander Merklas Hyperlipidemia Maternal Grandfather Alexander Merklas Lung cancer Maternal Grandfather Alexander Merklas Lung cancer Maternal Grandmother Adriana Merklas Arrhythmia Mother Parkinsonism Paternal Grandfather Jack Bolivar Breast cancer Paternal Grandmother Zuleyma Bolivar COPD Paternal Grandmother Zuleyma Bolivar Dementia Paternal Uncle Johan Buchanann Alzheimers Hypertension Sister Stacie Espinoza Relation Name Status Comments Father Josh Bolivar Maternal Grandfather Alexander Merklas Alive Maternal Grandmother [...] Sign Reading Time Taken Comments Blood Pressure 118/63 03/21/2025 6:00 PM EST Pulse 62 03/21/2025 6:00 PM EST Temperature 36.4 C (97.6 F) 03/21/2025 2:06 PM EST Respiratory Rate 16 03/21/2025 6:00 PM EST Oxygen Saturation 97% 03/21/2025 6:00 PM EST Inhaled Oxygen Concentration - - Weight 106 kg (233 lb 11 oz) 03/21/2025 9:13 AM EST Height 190.5 cm (6' 3 ) 03/21/2025 9:13 AM EST Body Mass Index 29.21 03/21/2025 9:13 AM EST Plan of Treatment Health Maintenance [...] Vaccine (1 of 2) 2024 COVID-19 Vaccine ( - 2024-2 6 season) 2025 12/31/2020, 05/18/2020, 04/27/2020 Influenza Vaccine Completed 03/01/2025, , 03/24/2023, Additional history exists Procedures Procedure Name Priority Date/Time Associated Diagnosis Comments ISTAT ACTIVATED CLOTTING TIME, CELITE (CHARGE) Routine 03/21/2025 1:42 PM EST ABLATION A-FIB Routine 03/21/2025 1:35 PM EST Paroxysmal A-fib (HCC) ANES INTUBATION Routine 03/21/2025 1:04 PM EST ABO CONFIRMATION Routine 03/21/2025 9:45 AM EST TYPE AND SCREEN Routine 03/21/2025 9:40 AM EST PARTIAL THROMBOPLASTIN TIME (PTT) STAT 03/20/2025 2:31 PM EST PAF (paroxysmal atrial fibrillation) (HCC) Preop testing PROTIME-INR STAT 03/20/2025 2:31 PM EST PAF (paroxysmal atrial fibrillation) (HCC) Preop testing COMPLETE BLOOD COUNT, WITH DIFFERENTIAL STAT 03/20/2025 2:31 PM EST PAF (paroxysmal atrial fibrillation) (HCC) Preop testing BASIC METABOLIC PANEL STAT 03/20/2025 2:31 PM EST PAF (paroxysmal atrial fibrillation) (HCC) Preop testing ECG 12-LEAD Routine 03/10/2025 2:56 PM EST PAF (paroxysmal atrial fibrillation) (HCC) Bradycardia from Last 3 Months Results * (ABNORMAL) ISTAT Activated Clotting Time, Celite (03/21/2025 1:42 PM EST) Activated Clotting Time (Celite), I-STAT 310(H) 84 - 139 seconds 03/21/2025 2:05 PM EST Blood specimen / Unknown 03/21/2025 1:42 PM EST 03/21/2025 2:05 PM EST us Shine Burch MD POCT ORDERABLES - DEVICE Final R esult HOSPITAL LAB See Below * ABLATION A-FIB (03/21/2025 1:35 PM EST) Anatomical Region Laterality Modality Cardiac Electrop hysiology Narrative 03/21/2025 2:01 PM EST Table formatting from the original result was not included. Images from the original result were not included. 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 He had declined trial of antiarrhythmic drug therapy. Consent Informed consent was obtained prior to entering the EP lab. The procedure was discussed with the patient in great detail. The risks of the procedure, including but not limited to, bleeding, infection, vascular injury, cardiac perforation, VA, thromboembolism, pulmonary vein stenosis, gastroparesis, phrenic nerve injury, atrioesophageal fistula, stroke, heart block requiring pacemaker implantation, and were discussed. Alternatives were discussed and all questions were answered. The patient signed informed consent. Procedure The procedure was performed under general anesthesia. The patient was prepped and draped in the usual sterile fashion. The groins were anesthetized with 1% lidocaine and 0.5% bupivacaine. Sheaths were placed in the right and left femoral veins using the modified Seldinger technique and ultrasound guidance. A Heparin bolus was given and an infusion were begun to keep the ACT 350-400 seconds. Catheters were advanced using a 3D mapping system. The CARTO3 electroanatomical mapping system was utilized. Insertion Site Sheath Catheter Site RFV 8F Decapolar RA/RV/Phrenic Map RFV 14 F Flexcath Contour Pulse Select Medtronic Ablation catheter LA/PVs LFV 8F Decapolar CS LFV 11F Viewflex ICE RA Baseline Measurements: Rhythm: Sinus Cycle length: 1200 ms AH interval: 94 ms HV interval: 60 ms Electrophysiology Study: Comprehensive cardiac electrophysiology study was performed with stimulation of the atrium and ventricle and simultaneous recording. AV kelsi Wenkebach occurred at cycle length of ms from the proximal CS 360 ms. During ventricular stimulation there was no evidence for VA conduction. There was also no evidence for dual AV kelsi pathway physiology. Trans-septal Procedure: A trans-septal procedure was performed using 3D mapping and intracardiac pressure evaluaion, as well as ICE guidance. An SL#1 sheath and dilator were advanced to the SVC over an 0.32 wire. A Fresco Logic needle was then positioned 2mm proximal to the tip of the dilator and flushed. The system was then pulled down to the fossa ovalis. The needle was advanced out of the tip of the dilator, visualized on 3D mapping. RF was applied (10 carvalho x 2 seconds). The needle immediately entered the left atrium and the dilator and sheath were advanced into the left atrium over the needle. Heparin was given as a bolus and infusion to maintain the ACT at 350-400 sec. The needle and dilator were removed and the sheath was flushed. The SL#1 sheath was exchanged over a Toray pigtail wire for the Flexcath contour sheath. Right atrial mean Pressure (mm Hg): 10 Left atrial mean Pressure (mm Hg): 9 The Pulse Select PFA catheter was then advanced to left atrium via the Flexcath contour sheath. All trans-septal sheaths were continuously flushed with heparinized saline. 3D Electroanatomical Mapping: Using the Penta ray catheter, an electroanatomical map of the left atrium and pulmonary veins (PVs)was created. The shell was compared with the pre-procedure imaging to ensure accuracy. There were 4 pulmonary veins. Pulse field ablation: Pulmonary vein isolation was then performed with a Medtronic pulse select catheter. Pulsed field ablation was performed with 4 pulses for each application around each of the 4 pulmonary veins. PV PFA # LSPV 10 LIPV 8 RIPV 8 RSPV 15 41 PFA applications in total were made in the left atrium around the veins. Vagal responses were noted around the right and left sided pulmonary veins. Both entrance and exit block were confirmed from all PV using the Penta array catheter and by recording as well as pacing from within the veins. A voltage map of the posterior LA revealed circumferential ablation and block around the 4 pulmonary veins. The catheters and sheath were pulled back to the RA. Intracardiac echo was used to exclude pericardial effusion. Conclusion of the procedure: Protamine was given to reverse the heparin and then catheters and sheaths were pulled. Hemostasis was achieved with manual compression. The patient left the EP lab in good condition. LA voltage map preablation LA voltage map post ablation Fluoroscopy time: 0 min mGy: 0 microGym2: 0 Conclusions Complications during procedure: None Summary: Ablation of atrial fibrillation with pulmonary vein isolation using pulsed field ablation Recommendations/Plan: Bed rest x 4 hours followed by discharge home this afternoon. Anticoagulation: Continue Eliquis. Follow-up in clinic in 4 weeks. us Shine Burch MD CV ELECTROPHYSIOLOGY ORDERABLES Final Result * ANES INTUBATION (03/21/2025 1:04 PM EST) Sara Guadarrama MD - 03/21/2025 1:04 PM EST Sara Fernandes MD 03/21/2025 1:05 PM Anesthesia Procedure Note - Intubation Patient Name: Jack Lutz : 1975 Patient location: OR Procedure indications: airway protection Procedure diagnosis: Anesthesia Performed by: Anesthesiologist Sara Fernandes MD Chart Verification ID band applied and present Patient ID verified via arm band. H&P verified: Yes Consents confirmed: operative, informed and anesthesia Airway: airway not difficult Preanesthetic Checklist monitors and equipment checked. Patient's pre-procedure mental status: awake The patient was not sedated prior to procedure. Airway not difficult - NPO status: > 8 hours Procedure Details Intubation route: oral Intubation method: direct laryngoscopy Mac 3 Number of attempts: 1 Patient status for intubation: sedated, unresponsive and paralyzed Patient position: supine Preoxygenation: BVM Quality of BVM: easy Tube size: 8.0 mm Tube: standard - cuffed, cuff inflated and minimal leak test Cricoid pressure not applied or not required Cord visualization: Grade IIa Placement confirmation method: chest rise and ETCO2 monitor Breath sounds: equal bilaterally and absent over the epigastrium ETT to lip: 23 cm Dentition: same as baseline Complications: no complications Additional comments: Uneventful intubation with MAC 3. No stylet used. No signs of aspiration, no dental damage. B/L breath sounds auscultated. Sara Fernandes MD [place] ANESTHESIA Final Result * ABO Confirmation (03/21/2025 9:45 AM EST) ABO/Rh O POSITIVE 03/21/2025 11:24 AM [facility] Blood Blood specimen / Unknown 03/21/2025 9:45 AM EST 03/21/2025 10:12 AM EST Shine Burch MD BLOOD BANK TEST ORDERABLES Final Result Performing Organization Address [facility] [place] [address], [place] [address] * Type and Screen (03/21/2025 9:40 AM EST) Pathologist [facility] ABO/Rh O POSITIVE 03/21/2025 11:24 AM [facility] Antibody Screen NEGATIVE 03/21/2025 11:24 AM [facility] Specimen Expiration 03/24/2025 03/21/2025 11:24 AM [facility] Blood Bank Comment Second Sample needed for Blood Transfusion 03/21/2025 11:24 AM [facility] Blood Blood specimen / Unknown 03/21/2025 9:40 AM EST 03/21/2025 10:12 AM EST Ivette Burnham APRN BLOOD BANK TEST ORDERABLES Final Result Performing Organization Address City/[facility]/[place] [address], [address] [address] * (ABNORMAL) Complete Blood Count, with Differential (03/20/2025 2:31 PM EST) White Blood Cell Count 10.8 3.8 - 10.8 Thousand/u L [facility], [facility] [address] [place] [address] Red Blood Cell Count 5.56 4.20 - 5.80 Million/uL [facility], [facility] [address] [place] [address] Hemoglobin 15.1 13.2 - 17.1 g/dL [facility] [place] [address] Hematocrit 46.8 38.5 - 50.0 % [facility] [place] [address] MCV 84.2 80.0 - 100.0 fL [facility] [place] [address] MCH 27.2 27.0 - 33.0 pg [facility] [place] [address] MCHC 32.3 32.0 - 36.0 g/dL [facility] [place] [address] Comment: For adults, a slight decrease in the calculated MCHC value (in the range of 30 to 32 g/dL) is most likely not clinically significant; however, it should be interpreted with caution in correlation with other red cell parameters and the patient's clinical condition. RDW 12.8 11.0 - 15.0 % [facility] [place] [address] Platelet Count 306 140 - 400 Thousand/u L [facility] [place] [address] MPV 10.5 7.5 - 12.5 fL [facility] [place] [address] Abs Neutrophils Auto 5,141 1,500 - 7,800 cells/uL [facility] [place] [address] Abs Lymphocytes Auto 4,244(H) 850 - 3,900 cells/uL [facility] [place] [address] Abs Monocytes Auto 1,134(H) 200 - 950 cells/uL [facility] [address] Abs Eosinophils Auto 194 15 - 500 cells/uL [facility] [place] [address] Abs Basophils Auto 86 0 - 200 cells/uL [facility] [place] [address] Neutrophils Auto 47.6 % [facility] [place] [address] Lymphocytes Auto 39.3 % [facility] [place] [address] Monocytes Auto 10.5 % [facility] [place] [address] Eosinophils Auto 1.8 % [facility] [place] [address] Basophils Auto 0.8 % [facility] [address] Blood Blood specimen / Unknown 03/20/2025 2:31 PM EST 03/20/2025 2:32 PM EST Narrative [facility] - 03/20/2025 8:51 PM EST FASTING:NO FASTING: NO Shine Burch MD LAB BLOOD ORDERABLES Final Resul t Performing Organization Address [facility] Co de Phone Number [facility], [facility] [address] [place] [address] * Partial Thromboplastin Time (PTT) (03/20/2025 2:31 PM EST) Partial Thromboplastin Time (PTT) 31 23 - 32 sec [facility] [address] Comment: This test has not been validated for monitoring unfractionated heparin therapy. For testing that is validated for this type of therapy, please refer to the Heparin Anti-Xa assay (test code 72409). For additional information, please refer to http://[employer]/faq/UJC428 (This link is being provided for informational/educational purposes only.) Blood Blood specimen / Unknown 03/20/2025 2:31 PM EST 03/20/2025 2:32 PM EST Narrative [facility] - 03/20/2025 8:51 PM EST FASTING:NO FASTING: NO Shine Burch MD LAB BLOOD ORDERABLES Final Resul t Performing Organization Address [facility] de Phone Number [place], [facility] [address] [place] [address] * Protime-INR (03/20/2025 2:31 PM EST) INR 1.[address] [facility] [place] [address] Comment: Reference Range 0.9-1.1 Moderate-intensity Warfarin Therapy 2.0-3.0 Higher-intensity Warfarin Therapy 3.0-4.0 Prothrombin Time (PT) 10.9 9.0 - 11.5 sec [facility] [place] [address] Comment: For additional information, please refer to http://[employer]ives[employer]es/faq/YUV523 (This link is being provided for informational/ educational purposes only.) Blood Blood specimen / Unknown 03/20/2025 2:31 PM EST 03/20/2025 2:32 PM EST Narrative [facility] - 03/20/2025 8:51 PM EST FASTING:NO FASTING: NO us Shine Burch MD LAB BLOOD ORDERABLES Final Resul t [facility], [facility] [address] [place] [address] * Basic metabolic panel (03/20/2025 2:31 PM EST) [facility] Glucose 93 65 - 139 mg/dL [facility] [place] [address] Comment: Non-fasting reference interval Blood Urea Nitrogen (BUN) 21 7 - 25 mg/dL [facility] [place] [address] Creatinine 0.99 0.70 - 1.30 mg/dL [facility] [address] Creatinine w/ eGFR 93 > OR = 60 mL/min/1.7 3m2 [facility] [address] BUN/Creatinine Ratio SEE NOTE: 6 - 22 (calc) [facility] [address] Comment: Not Reported: BUN and Creatinine are within reference range. Sodium 137 135 - 146 mmol/L [facility] [address] Potassium 4.1 3.5 - 5.3 mmol/L [facility] [address] Chloride 101 98 - 110 mmol/L [facility] [address] CO2 28 20 - 32 mmol/L [facility] [address] Calcium 10.2 8.6 - 10.3 mg/dL [facility] [address] Blood Blood specimen / Unknown 03/20/2025 2:31 PM EST 03/20/2025 2:32 PM EST Narrative [facility] - 03/20/2025 8:51 PM EST FASTING:NO FASTING: NO us Shine Burch MD LAB BLOOD ORDERABLES Final Resul t [place], [facility] [address] [place] [address] * ECG 12 lead (03/10/2025 2:56 PM EST) Ventricular rate 50 BPM EKG [facility] Atrial rate 50 BPM EKG [facility] P-R interval 160 ms EKG [facility] QRS duration 112 ms EKG [facility] Q-T interval 438 ms EKG [facility] QTC calculation (Bazett) 399 ms EKG [facility] P axis 15 degrees EKG [facility] R axis -31 degrees EKG [facility] T axis 14 degrees EKG [facility] 03/10/2025 2:56 PM EST Narrative EKG [facility] - 03/10/2025 3:44 PM EST Sinus bradycardia [...] Shine Burch MD ECG ORDERABLES Final Result Performing Organization Address City/[facility] Co de Phone Number [facility] from Last 3 Months Insurance [facility] Advance Directives * Full Code (Latest Code Status on File) Date Activated Date Inactivated Comments 03/21/2025 1:52 PM Care Teams Recording Studio Intern Relationship Specialty Start Date End Date Leon Narayan [address] [place] [address] [address] [place] [address] PCP - Cardiology 10/25/24 Cameron mSith MD [address] [place] [id number] PCP - General 03/21/25
--- OUTSIDE RECORDS SUMMARY | 2025-04-21 21:54 | XMS_ITS | Clinical Summary ---
Author Organization [facility] Address [address] [id number] Phone Care Team Providers Care Owner/Operator Name Role Phone Giovanni Campo MD Primary Care Provider [phone] Allergies Active Allergy Reactions Criticality Noted Date Comments Pavel Inhibitors Hives 05/22/2023 Medications amLODIPine (NORVASC) 10 [...] Additional history exists COVID-19 VACCINE ( - 2024- season) 2025 12/31/2020, 12/31/2020, 05/18/2020, Additional history [...] COLON (05/22/2023 12:05 PM EST) Narrative Transcriptions aJke Crow MD - 05/22/2023 12:05 PM EST [facility] Patient Name: Jack Bolivar Attending MD:: JAKE CROW MD, Procedure Date: 05/22/2023 12:05 PM Date of : 1975 Age: 47 Admit Type: Outpatient Gender: Male Room: [place] [address] Referring MD: GIOVANNI CAMPO Exam Type: Colonoscopy [...] 12:05 PM Procedure Code(s): --- Professional --- 50914, Colonoscopy, flexible; diagnostic, including collection of specimen(s) by brushing or washing, when performed (separateprocedure) --- Technical --- 09528, Colonoscopy, flexible; diagnostic, including collection of specimen(s) by brushing or washing, when performed (separateprocedure) Diagnosis Code(s): --- Professional --- Z12.11, Encounter for screening for malignantneoplasm of colon K57.30, Diverticulosis of large intestine without perforation or abscess without bleeding --- Technical --- Z12.11, Encounter for screening for malignantneoplasm of colon K57.30, Diverticulosis of large intestine without perforation or abscess without bleeding CPT copyright 2021 [employer]. All rights reserved. The codes documented in this report are preliminary and upon regulatory affairs manager reviewmay be revised to meet current compliance requirements. Procedure Date: 05/22/2023 12:05:08 PM [address] [place] [address] Giovanni Campo MD GI PROCEDURE ORDERABLES F inal Result from Last 3 Months or Most Recently Relevant to Health Maintenance Insurance [address] [facility] [place] [id number] [facility] H[facility] Care Teams Owner/Operator Relationship Specialty Start Date End Date Giovanni Campo MD [address] [place] [id number] PCP - General Internal Medicine 04/25/23 Additional Source Comments The information contained in this document represents components of the legal health record. It is not the complete legal health record.[facility]
== END 2025-04-21 16:29 | disposition home or self-care (01) ==
LOC: HO.HCS 15:25
PROVIDERS: PCP Internal Medicine; Visit Provider Internal Medicine Cardiovascular Disease
DX: I48.0 Paroxysmal atrial fibrillation (principal); I10 Essential (primary) hypertension
CPT/HCPCS: 93010; 99214

== ENCOUNTER → 2025-04-21 15:25 | Outpatient (BNVA) | payer OTHER, SELFPAY | PROVIDERS: PCP Internal Medicine; Visit Provider Internal Medicine Cardiovascular Disease | DX: I10 Essential (primary) hypertension (principal); I48.0 Paroxysmal atrial fibrillation | CPT/HCPCS: 93005 ==